=== PATIENT | male | born 1935 | race Caucasian/White ===

== ENCOUNTER 2016-05-10 19:01 | Inpatient (IN) | payer OTHER, MEDICARE ==
[~2016-05-10] VITALS: Ht 200.7 cm; Wt 67.9 kg
[~2016-05-10 19:01] MED LIST: ASTHMA MED; B/P MED; PRED20 PO; [UNRECOGNIZED DRUG - OTHER]; [UNRECOGNIZED DRUG - REMARK]
[2016-05-10 19:03] VITALS: BP 125/67; PULSE 80; RESP 20; TEMP 98.6
[2016-05-10 19:20] VITALS: BP 122/74; PULSE 78; RESP 14; TEMP 98.1; O2SAT 98
[2016-05-10] MEDS ORDERED: DEXTROSE 50% IN WATER 50 ML VIAL(D50) IV PUSH ONE (19:30)
[2016-05-10] MEDS ORDERED: DEXTROSE 50% IN WATER 50 ML VIAL(D50) ONE (19:31)
--- NOTE | 2016-05-10 19:31 | PD ---
HPI Chief Complaint: General Weakness Time Seen by Provider: 20:05 Travel History International Travel<30 days: No Contact w/Intl Traveler<30days: No Traveled to known affect area: No History of Present Illness HPI 80-year-old male presents to the emergency department by private transportation the care of his son for evaluation of progressively worsening generalized weakness. 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 Patient did not undergo coronary bypass. Patient is on multiple medications but the son does not know any of these medications and presently the patient is very drowsy and unable to recall his medication list. Patient has had no injury or fall. No reported fever. Due to his ongoing progression of weakness son decided to bring him to the emergency department. Patient has been ambulatory with assistance of a cane and a health care provider as he is undergoing home health rehabilitation since being discharged from rehabilitation facility 3 weeks ago. Son does not notice any new facial droop or weakness does not notice any specific right-sided or left-sided weakness. Patient has extensive past medical history including diabetes atrial fibrillation hypertension CVA TIA and asthma. FORMERLY [facility], 1928–1983 Past Medical History Narrative Medical Asthma, atrial fibrillation, CVA, diabetes, hypertension, thoracic aneurysm repair, valve replacement, pipe tobacco use; nursing notes reviewed Hx Anticoagulant Therapy: Yes (asa 81mg) Asthma: Yes Atrial Fibrillation: Yes Cardiovascular Problems: Yes Cerebrovascular Accident: Yes Diabetes: Yes Diminished Hearing: No Hypertension: Yes Respiratory: Yes (asthma) Social History Alcohol Use: No Tobacco Use: Yes (PIPE 5 TIMES A DAY) Allergies-Medications (Allergen,Severity, Reaction): Coded Allergies: No Known Allergies (Unverified , 05/18/15) Reported Meds & Prescriptions Reported Meds & Active Scripts Active Reported Augustina Aspirin EC Low Dose (Aspirin) 81 Mg Tabdr Spiriva Respimat Inh (Tiotropium Inh) 1.25 Mcg/Act Aero 2 Puff INH DAILY 1.25 mcg = 1 inhalation Ventavis Inh (Iloprost Inh) 10 Mcg/Ml Soln Metformin (Metformin HCl) 1,000 Mg Tab 1,000 Mg PO BIDPC With meals Norvasc (Amlodipine Besylate) 5 Mg Tab 5 Mg PO DAILY Atorvastatin (Atorvastatin Calcium) 40 Mg Tab 40 Mg PO HS Januvia (Sitagliptin Phosphate) 100 Mg Tab 100 Mg PO DAILY Glimepiride 4 Mg Tab 4 Mg PO BIDAC Metoprolol Tartrate 25 Mg Tab 25 Mg PO BID Trazodone (Trazodone HCl) 50 Mg Tab 50 Mg PO HS Toviaz ER (Fesoterodine Fumarate) 4 mg Aaron 4 Mg PO DAILY Benazepril (Benazepril HCl) 40 Mg Tab 40 Mg PO DAILY Invokana (Canagliflozin) 100 Mg Tab 100 Mg PO DAILY Take before 1st meal of day. [Asthma Med] [Glucose Med] [Afib Med] [B/P Med] Review of Systems ROS Limitations: Clinical Condition, Poor Historian, Other: (son at bedside relatively poor historian) Except as stated in HPI: all other systems reviewed are Neg General / Constitutional: No: Fever (per son) HENT: No: Congestion (according to son) Cardiovascular: No: Chest Pain or Discomfort Respiratory: No: Shortness of Breath (her son per son) Gastrointestinal: No: Abdominal Pain (her son) Musculoskeletal: No: Pain (unknown) Neurologic: Positive: Weakness, Change in Mentation (according to son), Slurred Speech (according to son) Physical Exam Narrative GENERAL: Well-developed somnolent male able to say his name and date of and follow commands. SKIN: Warm and dry. HEAD: Atraumatic. Normocephalic. EYES: Pupils equal and round. No scleral icterus. No injection or drainage. ENT: No nasal bleeding or discharge. Mucous membranes pink and moist. NECK: Trachea midline. No JVD. CARDIOVASCULAR: Regular rate and rhythm. Chest wall: Midline healing postoperative site with no redness no induration no tenderness no drainage RESPIRATORY: No accessory muscle use. Clear to auscultation. Breath sounds equal bilaterally. GASTROINTESTINAL: Abdomen soft, non-tender, nondistended. Hepatic and splenic margins not palpable. MUSCULOSKELETAL: Extremities without clubbing, cyanosis, or edema. No obvious deformities. NEUROLOGICAL: Drowsiness. No obvious cranial nerve deficits. Motor grossly within normal limits. Five out of 5 muscle strength in the arms and legs. No pronator drift. Normal speech. PSYCHIATRIC: Appropriate mood and affect; insight and judgment normal. Data Data Last Documented VS Vital Signs Date Time Temp Pulse Resp B/P Pulse Ox O2 Delivery O2 Flow Rate FiO2 05/11/16 02:02 69 16 117/71 97 Room Air 05/10/16 19:20 98.1 Orders Electrocardiogram (05/10/16 19:28) Complete Blood Count With Diff (05/10/16 19:28) Comprehensive Metabolic Panel (05/10/16 19:) Creatine Kinase (Cpk) (05/10/16 19:28) Prothrombin Time / Inr (Pt) (05/10/16 19:28) Act Partial Throm Time (Ptt) (05/10/16 19:28) Troponin I (05/10/16 19:28) Lactic Acid Sepsis Protocol (05/10/16 19:28) Blood Glucose (05/10/16 19:28) Ecg Monitoring (05/10/16 19:28) Iv Access Insert/Monitor (05/10/16:) Oximetry (05/10/16:) Dextrose 50% In Oc (Vial) Inj (D50w (Vi (05/10/16 19:30) Sodium Chlor 0.9% 1000 Ml Inj (Ns 1000 M (05/10/16 19:28) Dextrose 50% In Oc (Vial) Inj (D50w (Vi (05/10/16 19:31) Ct Brain W/O Iv Contrast(Rout) (05/10/16 ) Chest, Single Ap (05/10/16 ) Dextrose 50% In Oc (Vial) Inj (D50w (Vi (05/10/16 23:00) Dext 5%-Nacl 0.9% 1000 Ml Inj (D5w-Ns 10 (05/11/16 00:00) Blood Glucose (05/10/16 23:53) Dextrose 10% Inj (D... W/Sodium Chloride (05/11/16 00:30) Dextrose 50% In Oc (Vial) Inj (D50w (Vi (05/11/16 00:30) Admit To Inpatient (05/11/16 ) Vital Signs (Adult) Q4H (05/11/16 01:36) Neuro Checks Q4H (05/11/16 01:36) Activity Oob With Assistance (05/11/16 01:36) Hat Brim Curler / Telemetry .CONTINUOUS (05/11/16 01:36) Diet 1800 Ada Cons Carb (05/11/16 Breakfast) Sodium Chloride 0.9% Flush (Ns Flush) (05/11/16 01:45) Sodium Chloride 0.9% Flush (Ns Flush) (05/11/16 09:00) Basic Metabolic Panel (Bmp) (05/12/16 06:00) Complete Blood Count With Diff (05/12/16 06:00) Pt Request For Service (05/11/16 01:36) Case Management Consult (05/11/16 01:36) Scd Bilateral/Knee High EN.BID (05/11/16 01:36) Naloxone Inj (Narcan Inj) (05/11/16 01:45) Inpatient Certification (05/11/16 ) Mri Brain W&W/O Contrast (05/11/16 01:41) Us Leg Venous Doppler Bilat (05/11/16 ) Admit Order (Ed Use Only) (05/11/16 ) ^ Saline Lock (05/11/16 01:58) Resp Oxygen Nicolás C Titrat 1-4 L (05/11/16 ) ^ Notify Dr: Other (05/11/16 01:58) Sodium Chloride 0.9% Flush (Ns Flush) (05/11/16 09:00) Sodium Chloride 0.9% Flush (Ns Flush) (05/11/16 02:00) Consult Neurosurgery (05/11/16 ) Labs Laboratory Tests Test 05/10/16 19:20 White Blood Count 9.9 TH/MM3 Red Blood Count 4.62 MIL/MM3 Hemoglobin 10.8 GM/DL Hematocrit 33.6 % Mean Corpuscular Volume 72.9 FL Mean Corpuscular Hemoglobin 23.5 PG Mean Corpuscular Hemoglobin 32.2 % Concent Red Cell Distribution Width 15.6 % Platelet Count 273 TH/MM3 Mean Platelet Volume 7.8 FL Neutrophils (%) (Auto) 75.0 % Lymphocytes (%) (Auto) 15.0 % Monocytes (%) (Auto) 7.7 % Eosinophils (%) (Auto) 2.1 % Basophils (%) (Auto) 0.2 % Neutrophils # (Auto) 7.4 TH/MM3 Lymphocytes # (Auto) 1.5 TH/MM3 Monocytes # (Auto) 0.8 TH/MM3 Eosinophils # (Auto) 0.2 TH/MM3 Basophils # (Auto) 0.0 TH/MM3 CBC Comment AUTO DIFF Differential Comment AUTO DIFF CONFIRMED Ovalocytes 1+ Keratocytes 1+ Prothrombin Time 11.9 SEC Prothromb Time International 1.1 RATIO Ratio Activated Partial 30.1 SEC Thromboplast Time Sodium Level 141 MEQ/L Potassium Level 3.6 MEQ/L Chloride Level 103 MEQ/L Carbon Dioxide Level 28.5 MEQ/L Anion Gap 10 MEQ/L Blood Urea Nitrogen 15 MG/DL Creatinine 0.98 MG/DL Estimat Glomerular Filtration 73 ML/MIN Rate Random Glucose 27 MG/DL Lactic Acid Level 1.2 mmol/L Calcium Level 8.1 MG/DL Total Bilirubin 0.3 MG/DL Aspartate Amino Transf 21 U/L (AST/SGOT) Alanine Aminotransferase 23 U/L (ALT/SGPT) Alkaline Phosphatase 88 U/L Total Creatine Kinase 46 U/L Troponin I 0.04 NG/ML Total Protein 6.8 GM/DL Albumin 2.9 GM/DL MDM Medical Decision Making Medical Screen Exam Complete: Yes Emergency Medical Condition: Yes Interpretation(s) Vital Signs Date Time Temp Pulse Resp B/P Pulse Ox O2 Delivery O2 Flow Rate FiO2 05/10/16 21:16 82 16 114/72 98 Room Air 05/10/16 19:50 78 16 117/61 98 Room Air 05/10/16 19:20 98.1 78 14 122/74 98 Room Air 05/10/16 19:03 98.6 80 20 125/[address] 05/10/16 0000 Signed Impressions: Service Date/Time: Tuesday, May 10, 2016 21:46 - CONCLUSION: 1. Cerebral edema in the right frontal lobe with a vasogenic pattern and of concern for an underlying intra-axial mass. If there are no contraindications, MRI of the brain with and without contrast is recommended. There is about 4 mm of leftward midline shift. 2. No bleed. 3. Mild sinus disease. Pancho Norton MD CBC & BMP Diagram 05/10/16 19:20 Differential Diagnosis Altered mental status, hypoglycemia, CVA, sepsis, arrhythmia, MT Narrative Course @ 17:29 BG 31; D50 administered; patient with immediate improvement of LOC smiling talking appropriately interactive consistent with resolution of acute hypoglycemic episode; patient given healthy choice meal patient reqires additional amp of D50 as BG 65 and mild decrease LOC @ 22:30 Son has returned --will attempt to help fill out MR information and still w/o patient's medication list but now remembers Invokana is one of his medications. GENERAL: Well-developed well-nourished male in no acute distress no respiratory distress answers questions appropriately GCS 15 SKIN: Warm and dry. HEAD: Atraumatic. Normocephalic. EYES: Pupils equal and round. No scleral icterus. No injection or drainage. ENT: No nasal bleeding or discharge. Mucous membranes pink and moist. NECK: Trachea midline. No JVD. CARDIOVASCULAR: Regular rate and rhythm. RESPIRATORY: No accessory muscle use. Clear to auscultation. Breath sounds equal bilaterally. GASTROINTESTINAL: Abdomen soft, non-tender, nondistended. Hepatic and splenic margins not palpable. MUSCULOSKELETAL: Extremities without clubbing, cyanosis, or edema. No obvious deformities. NEUROLOGICAL: Awake and alert. No obvious cranial nerve deficits. Motor grossly within normal limits. Five out of 5 muscle strength in the arms and legs. No limb ataxia. No pronator drift. Normal speech. PSYCHIATRIC: Appropriate mood and affect; insight and judgment normal. @11:17 PM records from [facility] is available records from 04/13/16: Diabetes, asthma with COPD, dyslipidemia, CVA, factor V deficiency, peptic ulcer disease, hypertension, anemia, respiratory insufficiency, bronchoscopy bronchoalveolar lavage pleural effusion with your centesis aortic valve replacement atrial fibrillation medications at discharge aspirin atorvastatin Pepcid insulin metoprolol oral potassium Spiriva albuterol nebs @ 01:43 --MR not yet done; tech called and MR sheet faxed at 22:50 still waiting on bed; US performed --no dvt bed placement pending; MR here LOC aslepp, awakens to voice GCS 14-15; BG 97 returned from MR GCS 15, BG 73; D10 infusing Son: Fransico Oneill [phone] Critical Care Narrative Aggregate critical care time was 60 minutes. Time to perform other separately billable procedures was not included in the critical care time. My time did not include minutes spent treating any other patients simultaneously or on activities that did not directly contribute to the patient's treatment. The services I provided to this patient were to treat and/or prevent clinically significant deterioration that could result in: Respiratory failure, aspiration , coma, I provided critical care services requiring my management, as noted below: Chart data review, documentation time, medication orders and management, vital sign assessments/reviewing monitor data, ordering and reviewing lab tests, ordering and interpreting/reviewing x-rays and diagnostic studies, care of the patient and discussion of the patient with the admitting physicians. Physician Communication Physician Communication call placed to discussed with Dr Acuna --admit to [facility]; discused with livestock agent Dr Lisa --will acept to [facility] ICU consult to Dr Acuna Diagnosis Primary Impression: Altered mental status Qualified Code: R40.0 - Somnolence Additional Impressions: Intracranial mass Hypoglycemia Hypoglycemia due to type 2 diabetes mellitus Admitting Information Admitting Physician Requests: Admit Muriel Ring MD May 10, 2016 19:31
[2016-05-10] MEDS: SODIUM CHLOR 0.9% 1000 ML INJ 1,000 ML IV SCH ×2 (19:48→21:42)
[2016-05-10 19:50] VITALS: BP 117/61; PULSE 78; RESP 16; O2SAT 98
[2016-05-10 19:55] LABS: AUTOMATED NEUTROPHIL # 7.4 TH/MM3 (1.8-7.7); BASOPHIL % 0.2 % (0.0-2.0); EOSINOPHIL # 0.2 TH/MM3 (0-0.4); EOSINOPHIL % 2.1 % (0.0-4.0); HEMATOCRIT 33.6 % (39.0-51.0); LYMPHOCYTE # 1.5 TH/MM3 (1.0-4.8); MEAN CELL VOLUME 72.9 FL (80.0-100.0); MEAN CORPUSCULAR HEMOGLOBIN 23.5 PG (27.0-34.0); MEAN CORPUSCULAR HGB CONC 32.2 % (32.0-36.0); MONO % 7.7 % (0.0-8.0); PLATELET COUNT 273 TH/MM3 (150-450); RED BLOOD COUNT 4.62 MIL/MM3 (4.50-5.90); RED CELL DISTRIBUTION WIDTH 15.6 % (11.6-17.2); WHITE BLOOD COUNT 9.9 TH/MM3 (4.0-11.0)
[2016-05-10 20:01] LABS: CHLORIDE 103 MEQ/L (98-107); POTASSIUM 3.6 MEQ/L (3.5-5.1); SODIUM (NA) 141 MEQ/L (136-145)
[2016-05-10 20:05] LABS: ANION GAP 10 MEQ/L (5-15); BICARBONATE 28.5 MEQ/L (21.0-32.0)
[2016-05-10 20:07] LABS: APTT (PATIENT) 30.1 SEC (24.3-30.1); INTERNATIONAL NORMALIZED RATIO 1.1 RATIO; PROTHROMBIN TIME - PATIENT 11.9 SEC (9.8-11.6)
[2016-05-10 20:12] LABS: HEMO FLAGS AUTO DIFF
[2016-05-10 20:31] LABS: ALKALINE PHOSPHATASE 88 U/L (45-117); ALT (GPT) 23 U/L (12-78); AST (GOT) 21 U/L (15-37); BLOOD UREA NITROGEN 15 MG/DL (7-18); GLOMERULAR FILTRATION RATE 73 ML/MIN (>89); TOTAL BILIRUBIN ADULT 0.3 MG/DL (0.2-1.0)
[2016-05-10 20:32] LABS: CREATINE KINASE 46 U/L (39-308)
[2016-05-10 21:00] LABS: KERATOCYTES 1+ (NORMAL); OVALOCYTES 1+ (NORMAL); SCAN/DIFF AUTO DIFF CONFIRMED
[2016-05-10 21:16] VITALS: BP 114/72; PULSE 82; RESP 16; O2SAT 98
--- NOTE | 2016-05-10 22:10 | RADHPO ---
EXAM DATE/TIME: 05/10/2016 21:46 [facility] COMPARISON: No previous studies available for comparison. INDICATIONS : Altered mental status and weakness post cardiac surgery one month ago. RADIATION DOSE: 62.89 CTDIvol (mGy) MEDICAL HISTORY : Diabetes mellitus type 2. Aneurysm, abdominal. Cerebrovascular disease.Hypertension. SURGICAL HISTORY : Thoracic aneurysm and valve replacement. ENCOUNTER: Initial ACUITY: 1 month PAIN SCALE: 0/10 LOCATION: cranial TECHNIQUE: Multiple contiguous axial images were obtained of the head. Using automated exposure control and adj ustment of the mA and/or kV according to patient size, radiation dose was kept as low as reasonably a chievable to obtain optimal diagnostic quality images. FINDINGS: Focal edema with a vasogenic pattern seen in the right frontal lobe. There is about 4 mm of localized leftward midline shift. No bleed. No evidence of an acute ischemic event. Skull is intact. There is mucoperiosteal thickening of the maxillary air cells. CONCLUSION: 1. Cerebral edema in the right frontal lobe with a vasogenic pattern and of concern for an underlying intra-axial mass. If there are no contraindications, MRI of the brain with and without contrast is r ecommended. There is about 4 mm of leftward midline shift. 2. No bleed. 3. Mild sinus disease. Pancho Norton MD on May 10, 2016 at 22:07 Board Certified Radiologist. This report was verified electronically.
[2016-05-10] MEDS ORDERED: DEXTROSE 50% IN WATER 50 ML SYRINGE IV ONE (22:30)
[2016-05-10 22:49] VITALS: BP 119/78; PULSE 69; RESP 16; O2SAT 99
[2016-05-10] MEDS ORDERED: DEXTROSE 50% IN WATER 50 ML VIAL(D50) IV ONE (23:00)
--- NOTE | 2016-05-10 23:00 | RADHPO ---
EXAM DATE/TIME: 05/10/2016 22:48 [facility] COMPARISON: CHEST SINGLE AP, May 18, 2015, 11:15. INDICATIONS : Weakness and confusion. MEDICAL HISTORY : Diabetes mellitus type 2. Aneurysm, abdominal. Cerebrovascular disease.Hypertension. SURGICAL HISTORY : Thoracic aneurysm and valve replacement. ENCOUNTER: Initial ACUITY: 1 day PAIN SCORE: 0/10 LOCATION: Bilateral chest FINDINGS: Patient has had median sternotomy and valve replacement since the prior study. Heart is mildly enlarg ed, new. There are basilar predominant infiltrates and small effusions on both sides. No pneumothorax seen. CONCLUSION: Mild to moderate failure. Valve replacement since the prior study. Pancho Norton MD on May 10, 2016 at 22:58 Board Certified Radiologist. This report was verified electronically.
[2016-05-10] MEDS ORDERED: ATOR40TA16 PO (23:25)
[2016-05-10] MEDS ORDERED: METO25TA3 PO (23:25)
[2016-05-10] MEDS ORDERED: BENA40TA PO (23:25)
[2016-05-10] MEDS ORDERED: TOVI4TAB PO (23:25)
[2016-05-10] MEDS ORDERED: AMLO5 PO (23:25)
[2016-05-10] MEDS ORDERED: METF1000 PO (23:25)
[2016-05-10] MEDS ORDERED: GLIM4TAB PO (23:25)
[2016-05-10] MEDS ORDERED: CANA100T PO (23:25)
[2016-05-10] MEDS ORDERED: ASPI1TAB73 (23:25)
[2016-05-10] MEDS ORDERED: TIOT1AER2 INH (23:25)
[2016-05-10] MEDS ORDERED: [UNRECOGNIZED DRUG - CODE] (23:25)
[2016-05-10] MEDS ORDERED: SITA1TAB2 PO (23:25)
[2016-05-10] MEDS ORDERED: TRAZ50TA12 PO (23:25)
[2016-05-11] VITALS (17 sets, daily range): BP systolic 116–190; BP diastolic 60–86; PULSE 69–90; RESP 16–31; TEMP 98–98.4; O2SAT 95–98
[2016-05-11] MEDS ORDERED: DEXT 5%-NACL 0.9% 1000 ML INJ 1,000 ML IV SCH
[2016-05-11] MEDS: SODIUM CHLOR 0.9% 1000 ML INJ 1,000 ML IV SCH ×2 (00:11→01:33)
[2016-05-11] MEDS ORDERED: DEXTROSE 50% IN WATER 50 ML VIAL(D50) IV ONE ×2 (00:30→04:00)
[2016-05-11] MEDS ORDERED: DEXTROSE 50% IN WATER 50 ML SYRINGE IV ONE ×2 (00:30→03:45)
[2016-05-11] MEDS: SODIUM CHLORIDE 23.4% INJ 154 MEQ in DEXTROSE 10% INJ 1,000 ML IV SCH ×2 (00:41→14:45)
[2016-05-11] MEDS ORDERED: NALOXONE HCL 0.4 MG/ML AMP IV PRN (01:45)
[2016-05-11] MEDS ORDERED: SODIUM CHLORIDE 0.9% FLUSH 5 ML FLUSH FLUSH PRN (01:45)
[2016-05-11] MEDS ORDERED: SODIUM CHLORIDE 0.9% FLUSH 5 ML FLUSH IVF PRN (02:00)
--- NOTE | 2016-05-11 02:55 | RADHPO ---
EXAM DATE/TIME: 05/11/2016 02:14 [facility] COMPARISON: No previous studies available for comparison. INDICATIONS : Swelling in bilateral legs. MEDICAL HISTORY : Aneurysm, abdominal. Hypertension. Cerebrovascular accident. Asthma. A-Fib. Factor V deficiency. SURGICAL HISTORY : Abdominal aortic aneurysm repair. Aortic valve replacement. ENCOUNTER: Initial ACUITY: 1 day PAIN SCORE: 0/10 LOCATION: Bilateral legs. TECHNIQUE: Venous ultrasound of the left and right leg was performed from the inguinal ligament to the proximal calf. Real-time, color Doppler and spectral tracing, compression and augmentation techniques were us ed. FINDINGS: RIGHT LEG: There is normal compressibility of the deep venous system from the inguinal region to the proximal ca lf. No echogenic clot is seen in the lumen of the common femoral, femoral, popliteal, and posterior tibial veins. There is a normal response of the venous system to proximal and distal augmentation an d respiration. There is an elongated complex 15.3 x 3.4 x 1.1 cm cystic area seen in the superficial right medi al mid thigh LEFT LEG: There is normal compressibility of the deep venous system from the inguinal region to the proximal ca lf. No echogenic clot is seen in the lumen of the common femoral, femoral, popliteal, and posterior tibial veins. There is a normal response of the venous system to proximal and distal augmentation an d respiration. CONCLUSION: 1. No DVT. 2. Complex elongated cystic structure in the superficial medial right mid thigh. No flow is seen with in this. This could be a seroma if the patient has had prior surgery in this region. Pancho Lugo MD on May 11, 2016 at 2:50 Board Certified Radiologist. This report was verified electronically.
[2016-05-11] MEDS ORDERED: GADODIAMIDE PF 287 MG/ML 5 ML VIAL (for RAD MRI) IV PUSH ONE (03:29)
--- NOTE | 2016-05-11 04:20 | RADHPO ---
EXAM DATE/TIME: 05/11/2016 03:27 [facility] COMPARISON: CT BRAIN W/O CONTRAST, May 10, 2016, 21:46. INDICATIONS : Mass. CONTRAST: 14 cc Omniscan (gadodiamide) IV MEDICAL HISTORY : Diabetes mellitus type 2. SURGICAL HISTORY : Aortic valve replacment, Thoracic aneurysm repair. ENCOUNTER: Initial ACUITY: 1 day PAIN SCORE: 1/10 LOCATION: Bilateral cranial TECHNIQUE: Multiplanar, multisequence MRI of the brain was performed both prior to and following the administrat ion of paramagnetic contrast. FINDINGS: CEREBRUM: There are areas of increased signal seen in the cerebral white matter being more prominent on the rig ht. On the right, there appears to be a more prior area extending to the right basal ganglia. Within this area of increased signal on the T2 images there is a more focal 1.3 cm masslike area seen. This demonstrates minimal enhancement. There is some peripheral low signal seen in this region. Old infarctions in the basal ganglia bilaterally and in the left caudate head. The ventricles ar e normal in size. There is mild 3 mm of right to left midline shift. The basal cisterns are open. The re is increased signal within the periventricular regions bilaterally on the diffusion weighted image s likely related to T2 shine through phenomenon.No extraaxial fluid collections are seen. The pituit astrid gland and suprasellar cistern are normal in configuration. WHITE MATTER: No significant signal abnormalities are seen in the white matter. POSTERIOR FOSSA: The cerebellum and brainstem are intact. The 4th ventricle is midline. The cerebellopontine angle is unremarkable. The cerebellar tonsils are normal in position. EXTRACRANIAL: The visualized portions of the orbits and paranasal sinuses are unremarkable. POST-CONTRAST: No abnormal areas of parenchymal or dural enhancement. No evidence of blood-brain barrier breakdown. CONCLUSION: 1. 1.3 cm area of focal signal abnormality in the right periventricular white matter with some surrou nding edema. This area is nonspecific. There is some suggestion this may be related to a focal area o f prior hemorrhage. An area of prior infarction with some minimal enhancement could have a similar ap pearance. A small mass such as a glioma with mild mass effect could also have this appearance. Given the surrounding edema only causes mild midline shift and enhancement is very slight, as above, it is thought that provided there is no clinical contraindication, a very short term interval followup MRI examination in 4 weeks could be recommended. Neurosurgical consultation for followup would also be re commended. 2. Suspected areas of ischemic demyelination in the cerebral white matter with some T2 shine through phenomenon seen on the diffusion weighted images. Pancho Lugo MD on May 11, 2016 at 4:01 Board Certified Radiologist. This report was verified electronically.
--- NOTE | 2016-05-11 06:53 | HHI.HP ---
HPI Service Critical Care Medicine Primary Care Physician No Primary Care Physician Admission Diagnosis AMS; R intracranial mass; DM w hypoglycemia Diagnosis: Travel History International Travel<30 Days: No Contact w/Intl Traveler <30 Da: No Traveled to Known Affected Are: No History of Present Illness 80-year-old male presents to the emergency department by private transportation by his son for evaluation of progressively worsening generalized weakness. 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 Patient understands he is in the hospital however he doesn't remember why he came here at the first place. He does not have any complaints at this time. He has had no injury or fall. No reported fever. Due to his ongoing progression of weakness son decided to bring him to the emergency department. Patient has been ambulatory with assistance of a cane and a health care provider as he is undergoing home health rehabilitation since being discharged from rehabilitation facility 3 weeks ago. Review of Systems Constitutional: DENIES: Diaphoretic episodes, Fatigue, Fever, Weight gain, Weight loss, Chills, Dizziness, Change in appetite, Night Sweats Endocrine: DENIES: Heat/cold intolerance, Polydipsia, Polyuria, Polyphagia Ears, nose, mouth, throat: DENIES: Tinnitus, Hearing loss, Vertigo, Nasal discharge, Oral lesions, Throat pain, Hoarseness, Ear Pain, Running Nose, Epistaxis, Sinus Pain, Toothache, Odynophagia Respiratory: DENIES: Apneas, Cough, Snoring, Wheezing, Hemoptysis, Sputum production, Shortness of breath Cardiovascular: DENIES: Chest pain, Palpitations, Syncope, Dyspnea on Exertion , PND, Lower Extremity Edema, Orthopnea, Claudication Gastrointestinal: DENIES: Abdominal pain, Black stools, Bloody stools, Constipation, Diarrhea, Nausea, Vomiting, Difficulty Swallowing, Anorexia Genitourinary: DENIES: Sexual dysfunction, Urinary frequency, Urinary incontinence, Urgency, Hematuria, Dysuria, Nocturia, Penile Discharge, Testicular Pain, Testicular Swelling Musculoskeletal: DENIES: Joint pain, Muscle aches, Stiffness, Joint Swelling, Back pain, Neck pain Integumentary: DENIES: Abnormal pigmentation, Nail changes, Pruritus, Rash Hematologic/lymphatic: DENIES: Bruising, Lymphadenopathy Immunologic/allergic: DENIES: Eczema, Urticaria Past Family Social History Allergies: Coded Allergies: No Known Allergies (Unverified , 05/18/15) Past Medical History Hypertension Atrial fibrillation Diabetes Past Surgical History Thoracic aneurysm repair Valve replacement Reported Medications Reported Meds & Active Scripts Active Reported Spiriva Respimat Inh (Tiotropium Inh) 1.25 Mcg/Act Aero 2 Puff INH DAILY 1.25 mcg = 1 inhalation Ventavis Inh (Iloprost Inh) 10 Mcg/Ml Soln Metformin (Metformin HCl) 1,000 Mg Tab 1,000 Mg PO BIDPC With meals Norvasc (Amlodipine Besylate) 5 Mg Tab 5 Mg PO DAILY Atorvastatin (Atorvastatin Calcium) 40 Mg Tab 40 Mg PO HS Januvia (Sitagliptin Phosphate) 100 Mg Tab 100 Mg PO DAILY Glimepiride 4 Mg Tab 4 Mg PO BIDAC Metoprolol Tartrate 25 Mg Tab 25 Mg PO BID Trazodone (Trazodone HCl) 50 Mg Tab 50 Mg PO HS Toviaz ER (Fesoterodine Fumarate) 4 mg Aaron 4 Mg PO DAILY Benazepril (Benazepril HCl) 40 Mg Tab 40 Mg PO DAILY Invokana (Canagliflozin) 100 Mg Tab 100 Mg PO DAILY Take before 1st meal of day. [Asthma Med] [Glucose Med] [Afib Med] [B/P Med] Active Ordered Medications Current Medications Medications (Trade) Dose Ordered Sig/Tawnya Route PRN Reason Start Time Stop Time Status Last Admin Dose Admin Sodium Chloride/ Dextrose (Sodium Chloride 23.4% Inj/D10w Inj) 1,038.5 ml @ 10 mls/hr Q24H IV 05/11/16 00:30 05/11/16 14:45 IV Flush (NS Flush) 2 ml UNSCH PRN FLUSH FLUSH AFTER USING IV ACCESS 05/11/16 01:45 IV Flush (NS Flush) 2 ml BID FLUSH 05/11/16 09:00 05/11/16 10:33 Naloxone HCl (Narcan Inj) 0.4 mg UNSCH PRN IV SEE LABEL COMMENTS 05/11/16 01:45 Amlodipine Besylate (Norvasc) 5 mg DAILY PO 05/12/16 09:00 Atorvastatin Calcium (Lipitor) 40 mg HS PO 05/11/16 21:00 Lisinopril (Prinivil) 40 mg DAILY PO 05/12/16 09:00 Metoprolol Tartrate (Lopressor) 25 mg BID PO 05/11/16 21:00 Trazodone HCl (Desyrel) 50 mg HS PO 05/11/16 21:00 Tolterodine Tartrate (Detrol La) 4 mg DAILY PO 05/12/16 09:00 Patient Own Medication PT OWN MED: TIOTRIP... DAILY INH 05/12/16 09:00 Future Hold Haloperidol Lactate (Haldol Inj) 5 mg Q4H PRN IV AGITATION 05/11/16 17:00 05/11/16 16:16 Labetalol HCl (Trandate Inj) 20 mg Q4H PRN IV PUSH SBP greater than 160mm Hg 05/11/16 16:30 Family History Noncontributory Social History Negative 3 Physical Exam Vital Signs Vital Signs Date Time Temp Pulse Resp B/P Pulse Ox O2 Delivery O2 Flow Rate FiO2 05/11/16 03:50 98.0 74 16 169/81 Room Air 05/11/16 03:00 72 16 148/71 97 Room Air 05/11/16 02:02 69 16 117/71 97 Room Air 05/11/16 01:01 75 16 116/71 97 Room Air 05/11/16 00:14 72 16 133/76 95 Room Air 05/10/16 22:49 69 16 119/78 99 Room Air 05/10/16 21:16 82 16 114/72 98 Room Air 05/10/16 19:50 78 16 117/61 98 Room Air 05/10/16 19:20 98.1 78 14 122/74 98 Room Air 05/10/16 19:03 98.6 80 20 125/67 Physical Exam GENERAL: Well-nourished, well-developed patient. SKIN: Warm and dry. HEAD: Normocephalic. EYES: No scleral icterus. No injection or drainage. NECK: Supple, trachea midline. No JVD or lymphadenopathy. CARDIOVASCULAR: Regular rate and rhythm without murmurs, gallops, or rubs. RESPIRATORY: Breath sounds equal bilaterally. No accessory muscle use. GASTROINTESTINAL: Abdomen soft, non-tender, nondistended. MUSCULOSKELETAL: No cyanosis, or edema. BACK: Nontender without obvious deformity. No CVA tenderness. EXTREMITIES: No focal weakness appreciated Laboratory Laboratory Tests Test 05/10/16 19:20 White Blood Count 9.9 Red Blood Count 4.62 Hemoglobin 10.8 Hematocrit 33.6 Mean Corpuscular Volume 72.9 Mean Corpuscular Hemoglobin 23.5 Mean Corpuscular Hemoglobin 32.2 Concent Red Cell Distribution Width 15.6 Platelet Count 273 Mean Platelet Volume 7.8 Neutrophils (%) (Auto) 75.0 Lymphocytes (%) (Auto) 15.0 Monocytes (%) (Auto) 7.7 Eosinophils (%) (Auto) 2.1 Basophils (%) (Auto) 0.2 Neutrophils # (Auto) 7.4 Lymphocytes # (Auto) 1.5 Monocytes # (Auto) 0.8 Eosinophils # (Auto) 0.2 Basophils # (Auto) 0.0 CBC Comment AUTO DIFF Differential Comment AUTO DIFF CONFIRMED Ovalocytes 1+ Keratocytes 1+ Prothrombin Time 11.9 Prothromb Time International 1.1 Ratio Activated Partial 30.1 Thromboplast Time Sodium Level 141 Potassium Level 3.6 Chloride Level 103 Carbon Dioxide Level 28.5 Anion Gap 10 Blood Urea Nitrogen 15 Creatinine 0.98 Estimat Glomerular Filtration 73 Rate Random Glucose 27 Lactic Acid Level 1.2 Calcium Level 8.1 Total Bilirubin 0.3 Aspartate Amino Transf 21 (AST/SGOT) Alanine Aminotransferase 23 (ALT/SGPT) Alkaline Phosphatase 88 Total Creatine Kinase 46 Troponin I 0.04 Total Protein 6.8 Albumin 2.9 Result Diagram: 05/10/16191905/10/16 1920 Imaging Last 24 hours Impressions Brain MRI 05/11/16 0141 Signed Impressions: Service Date/Time: Wednesday, May 11, 2016 03:27 - CONCLUSION: 1. 1.3 cm area of focal signal abnormality in the right periventricular white matter with some surrounding edema. This area is nonspecific. There is some suggestion this may be related to a focal area of prior hemorrhage. An area of prior infarction with some minimal enhancement could have a similar appearance. A small mass such as a glioma with mild mass effect could also have this appearance. Given the surrounding edema only causes mild midline shift and enhancement is very slight , as above, it is thought that provided there is no clinical contraindication, a very short term interval followup MRI examination in 4 weeks could be recommended. Neurosurgical consultation for followup would also be recommended. 2. Suspected areas of ischemic demyelination in the cerebral white matter with some T2 shine through phenomenon seen on the diffusion weighted images. Pancho Lugo MD Spectroscopy MRI 05/11/16 0000 Signed Impressions: Service Date/Time: Wednesday, May 11, 2016 11:42 - CONCLUSION: Equivocal spectroscopy as described above. MRI surveillance is suggested without and with contrast. Kenneth Mcleod MD Lower Extremity Ultrasound 05/11/16 0000 Signed Impressions: Service Date/Time: Wednesday, May 11, 2016 02:14 - CONCLUSION: 1. No DVT. 2. Complex elongated cystic structure in the superficial medial right mid thigh. No flow is seen within this. This could be a seroma if the patient has had prior surgery in this region. Pancho Lugo MD Carotid Artery Ultrasound 05/11/16 0000 Signed Impressions: Service Date/Time: Wednesday, May 11, 2016 16:26 - CONCLUSION: 1. Atherosclerotic plaque bilaterally more abundant on the left. A 50-69%% stenosis is seen involving the left ICA origin. Right ICA is without stenosis. 2. Antegrade flow involving both vertebral arteries. hTeron Mccracken Jr., MD Assessment and Plan Problem List: (1) Altered mental status ICD Code: R41.82 Status: Acute (2) Intracranial mass ICD Code: R90.0 Status: Acute (3) Hypoglycemia due to type 2 diabetes mellitus ICD Code: E11.649 Status: Acute Assessment and Plan Altered mental status - Due to brain mass/bleed - Management per neurosurgery Hypertension - Norvasc - Lisinopril Atrial fibrillation - Rate control - Metoprolol ability to rate control - no anticoagulation due to brain mass and bleed Factor V deficiency - Hematology consult Hypoglycemia - Hold all diabetes medications - D10 W for now - Frequent sugar level checks DVT GI prophylaxis - Teds and SCDs Pepcid - No pharmacological DVT prophylaxis D2 intracranial bleed Critical Care: The total critical care time was 35 minutes. Time to perform other separately billable procedures was not included in the critical care time. Problem Qualifiers (1) Altered mental status: Qualified Code: R40.0 - Somnolence Alexsander Lisa MD May 11, 2016 06:53
--- NOTE | 2016-05-11 08:55 | PD.CONS ---
[facility] Service [email or web address] Consult Requested By dr dee Primary Care Physician No Primary Care Physician History of Present Illness This is a 80-year-old male presents to the emergency department by his son for evaluation of progressively worsening generalized weakness. 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 Patient understands he is in the hospital however he doesn't remember why he came here at the first place. Apparently he has been ambulatory with assistance of a cane and a health care provider as he is undergoing home health rehabilitation since being discharged from rehabilitation facility 3 weeks ago. His weakness is generalized. He has intermittent confusion. There is no focal weakness. There is no sensory loss. No seizure activity. No incontinence or stool or urine. A CT of the brain was obtained which show an hypodense lesion with surrounding edema. It was concerning for an intra-cerebral mass. Neurosurgical consultation was requested Review of Systems Constitutional: DENIES: Diaphoretic episodes, Fatigue, Fever, Weight gain, Weight loss, Chills, Dizziness, Change in appetite, Night Sweats Endocrine: DENIES: Heat/cold intolerance, Polydipsia, Polyuria, Polyphagia Ears, nose, mouth, throat: DENIES: Tinnitus, Hearing loss, Vertigo, Nasal discharge, Oral lesions, Throat pain, Hoarseness, Ear Pain, Running Nose, Epistaxis, Sinus Pain, Toothache, Odynophagia Respiratory: DENIES: Apneas, Cough, Snoring, Wheezing, Hemoptysis, Sputum production, Shortness of breath Cardiovascular: DENIES: Chest pain, Palpitations, Syncope, Dyspnea on Exertion , PND, Lower Extremity Edema, Orthopnea, Claudication Gastrointestinal: DENIES: Abdominal pain, Black stools, Bloody stools, Constipation, Diarrhea, Nausea, Vomiting, Difficulty Swallowing, Anorexia Genitourinary: DENIES: Sexual dysfunction, Urinary frequency, Urinary incontinence, Urgency, Hematuria, Dysuria, Nocturia, Penile Discharge, Testicular Pain, Testicular Swelling Musculoskeletal: DENIES: Joint pain, Muscle aches, Stiffness, Joint Swelling, Back pain, Neck pain Integumentary: DENIES: Abnormal pigmentation, Nail changes, Pruritus, Rash Hematologic/lymphatic: DENIES: Bruising, Lymphadenopathy Immunologic/allergic: DENIES: Eczema, Urticaria Past Family Social History Allergies: Coded Allergies: No Known Allergies (Unverified , 05/18/15) Past Medical History Hypertension Atrial fibrillation Diabetes Past Surgical History Thoracic aneurysm repair Valve replacement Reported Medications Reported Medications Spiriva Respimat Inh (Tiotropium Inh) 1.25 Mcg/Act Aero 2 Puff INH DAILY 1.25 mcg = 1 inhalation Ventavis Inh (Iloprost Inh) 10 Mcg/Ml Soln Metformin (Metformin HCl) 1,000 Mg Tab 1,000 Mg PO BIDPC With meals Norvasc (Amlodipine Besylate) 5 Mg Tab 5 Mg PO DAILY Atorvastatin (Atorvastatin Calcium) 40 Mg Tab 40 Mg PO HS Januvia (Sitagliptin Phosphate) 100 Mg Tab 100 Mg PO DAILY Glimepiride 4 Mg Tab 4 Mg PO BIDAC Metoprolol Tartrate 25 Mg Tab 25 Mg PO BID Trazodone (Trazodone HCl) 50 Mg Tab 50 Mg PO HS Toviaz ER (Fesoterodine Fumarate) 4 mg Aaron 4 Mg PO DAILY Benazepril (Benazepril HCl) 40 Mg Tab 40 Mg PO DAILY Invokana (Canagliflozin) 100 Mg Tab 100 Mg PO DAILY Take before 1st meal of day. Active Ordered Medications Current Medications Medications (Trade) Dose Ordered Sig/Tawnya Route PRN Reason Start Time Stop Time Status Last Admin Dose Admin Sodium Chloride/ Dextrose (Sodium Chloride 23.4% Inj/D10w Inj) 1,038.5 ml @ 10 mls/hr Q24H IV 05/11/16 00:30 05/11/16 14:45 IV Flush (NS Flush) 2 ml UNSCH PRN FLUSH FLUSH AFTER USING IV ACCESS 05/11/16 01:45 IV Flush (NS Flush) 2 ml BID FLUSH 05/11/16 09:00 05/11/16 10:33 Naloxone HCl (Narcan Inj) 0.4 mg UNSCH PRN IV SEE LABEL COMMENTS 05/11/16 01:45 Amlodipine Besylate (Norvasc) 5 mg DAILY PO 05/12/16 09:00 Atorvastatin Calcium (Lipitor) 40 mg HS PO 05/11/16 21:00 Lisinopril (Prinivil) 40 mg DAILY PO 05/12/16 09:00 Metoprolol Tartrate (Lopressor) 25 mg BID PO 05/11/16 21:00 Trazodone HCl (Desyrel) 50 mg HS PO 05/11/16 21:00 Tolterodine Tartrate (Detrol La) 4 mg DAILY PO 05/12/16 09:00 Patient Own Medication PT OWN MED: TIOTRIP... DAILY INH 05/12/16 09:00 Future Hold Haloperidol Lactate (Haldol Inj) 5 mg Q4H PRN IV AGITATION 05/11/16 17:00 05/11/16 16:16 Labetalol HCl (Trandate Inj) 20 mg Q4H PRN IV PUSH SBP greater than 160mm Hg 05/11/16 16:30 Family History Noncontributory Social History No alcohol abuse. No tobacco. No illicit drug use Physical Exam Vital Signs Vital Signs Date Time Temp Pulse Resp B/P Pulse Ox O2 Delivery O2 Flow Rate FiO2 05/11/16 08:33 97 21 05/11/16 07:00 99 Room Air 21 05/11/16 06:00 78 05/11/16 05:00 74 05/11/16 05:00 Room Air 95 05/11/16 05:00 98.3 74 25 165/81 95 05/11/16 03:50 98.0 74 16 169/81 Room Air 05/11/16 03:00 72 16 148/71 97 Room Air 05/11/16 02:02 69 16 117/71 97 Room Air 05/11/16 01:01 75 16 116/71 97 Room Air 05/11/16 00:14 72 16 133/76 95 Room Air 05/10/16 22:49 69 16 119/78 99 Room Air 05/10/16 21:16 82 16 114/72 98 Room Air 05/10/16 19:50 78 16 117/61 98 Room Air 05/10/16 19:20 98.1 78 14 122/74 98 Room Air 05/10/16 19:03 98.6 80 20 125/67 Physical Exam The patient is alert, confused, oriented to self. Wants to go home Cranial nerve examination demonstrates the pupils to be equal, round, and reactive to light. Extra-ocular movements are intact with normal convergence. Facial motor function appears normal and symmetrical. Face sensation, hearing, visual land, and olfaction can not be assessed properly due to the patients condition. The patient has an intact corneal reflex and a gag reflex. Sternocleidomastoid and trapezius have normal and symmetrical strength. Other cranial nerves are intact. Neck is soft and supple. Cervical spine has a normal range of motion of the cervical spine without pain. There is no tenderness to palpation to the spinous processes or paraspinal muscles. Muscle testing reveals normal bulk and tone overall without rigidity, spasticity , fasciculations, or atrophy. Muscle strength is 5/5 in all muscle groups of both upper and lower extremities. Deep tendon reflexes are 1+ and symmetrical in the biceps, triceps, and brachioradialis, bilaterally, in the upper extremities. In the lower extremities , the patellar and Achilles are 1+, bilaterally. There is a bilateral plantar flexion response. Hoffmanns sign is negative. There is no clonus or other abnormal reflexes noted. Cerebellar examination is limited due to the patient condition, but no obvious deficits are noted. Laboratory Laboratory Tests Test 05/10/16 19:20 White Blood Count 9.9 Red Blood Count 4.62 Hemoglobin 10.8 Hematocrit 33.6 Mean Corpuscular Volume 72.9 Mean Corpuscular Hemoglobin 23.5 Mean Corpuscular Hemoglobin 32.2 Concent Red Cell Distribution Width 15.6 Platelet Count 273 Mean Platelet Volume 7.8 Neutrophils (%) (Auto) 75.0 Lymphocytes (%) (Auto) 15.0 Monocytes (%) (Auto) 7.7 Eosinophils (%) (Auto) 2.1 Basophils (%) (Auto) 0.2 Neutrophils # (Auto) 7.4 Lymphocytes # (Auto) 1.5 Monocytes # (Auto) 0.8 Eosinophils # (Auto) 0.2 Basophils # (Auto) 0.0 CBC Comment AUTO DIFF Differential Comment AUTO DIFF CONFIRMED Ovalocytes 1+ Keratocytes 1+ Prothrombin Time 11.9 Prothromb Time International 1.1 Ratio Activated Partial 30.1 Thromboplast Time Sodium Level 141 Potassium Level 3.6 Chloride Level 103 Carbon Dioxide Level 28.5 Anion Gap 10 Blood Urea Nitrogen 15 Creatinine 0.98 Estimat Glomerular Filtration 73 Rate Random Glucose 27 Lactic Acid Level 1.2 Calcium Level 8.1 Total Bilirubin 0.3 Aspartate Amino Transf 21 (AST/SGOT) Alanine Aminotransferase 23 (ALT/SGPT) Alkaline Phosphatase 88 Total Creatine Kinase 46 Troponin I 0.04 Total Protein 6.8 Albumin 2.9 Result Diagram: 05/10/16191905/10/16 192 Imaging Imaging Last 24 hours Impressions Brain MRI 05/11/16 0141 Signed Impressions: Service Date/Time: Wednesday, May 11, 2016 03:27 - CONCLUSION: 1. 1.3 cm area of focal signal abnormality in the right periventricular white matter with some surrounding edema. This area is nonspecific. There is some suggestion this may be related to a focal area of prior hemorrhage. An area of prior infarction with some minimal enhancement could have a similar appearance. A small mass such as a glioma with mild mass effect could also have this appearance. Given the surrounding edema only causes mild midline shift and enhancement is very slight , as above, it is thought that provided there is no clinical contraindication, a very short term interval followup MRI examination in 4 weeks could be recommended. Neurosurgical consultation for followup would also be recommended. 2. Suspected areas of ischemic demyelination in the cerebral white matter with some T2 shine through phenomenon seen on the diffusion weighted images. Pancho Lugo MD Spectroscopy MRI 05/11/16 0000 Signed Impressions: Service Date/Time: Wednesday, May 11, 2016 11:42 - CONCLUSION: Equivocal spectroscopy as described above. MRI surveillance is suggested without and with contrast. Kenneth Mcleod MD Lower Extremity Ultrasound 05/11/16 0000 Signed Impressions: Service Date/Time: Wednesday, May 11, 2016 02:14 - CONCLUSION: 1. No DVT. 2. Complex elongated cystic structure in the superficial medial right mid thigh. No flow is seen within this. This could be a seroma if the patient has had prior surgery in this region. Pancho Lugo MD Carotid Artery Ultrasound 05/11/16 0000 Signed Impressions: Service Date/Time: Wednesday, May 11, 2016 16:26 - CONCLUSION: 1. Atherosclerotic plaque bilaterally more abundant on the left. A 50-69%% stenosis is seen involving the left ICA origin. Right ICA is without stenosis. 2. Antegrade flow involving both vertebral arteries. Theron Mccracken Jr., MD Attending Statement Neuro. I have reviewed his clinical and radiological findings. neuro checks in a serial fashion. These lesion could represent an involving cerebral infarction rather than a neoplastic process. I recommend he undergoes an MRI of the brain. In addition I recommend an MR spectroscopy. I would defer further recommendations to upon completion of his workup Respiratory. pulmonary toilette, nasotracheal suction, and breathing treatments with nebulizers. S/p repair of aneurysm. Defer to thoracic surgeon PT and OT eval Nutrition. Oral diet Renal. monitor closely urine output, BUN and creatinine Endocrine. Diabetes. Monitor serial Acu checks and SSI for tight control ID monitor for signs of infection Protonix for stress ulcer prophylaxis Hal hose and SCD's for DVT prophylaxis Teo Acuna MD May 11, 2016 08:55
[2016-05-11] MEDS ORDERED: SODIUM CHLORIDE 0.9% FLUSH 5 ML FLUSH IVF SCH (09:00)
[2016-05-11] MEDS: SODIUM CHLORIDE 0.9% FLUSH 5 ML FLUSH FLUSH SCH ×2 (10:33→22:19)
[2016-05-11] MEDS ORDERED: LORazepam 2 MG/ML VIAL IV ONE (10:45)
[2016-05-11] MEDS ORDERED: EPINEPHrine HCL (1:10,000) 1 MG/10 ML SYRINGE ONE (11:02)
[2016-05-11] MEDS ORDERED: LIDOCAINE HCL 2% 100 MG/5 ML SYRINGE ONE (11:02)
[2016-05-11] MEDS ORDERED: ATROPINE SULFATE 1 MG/10 ML SYRINGE ONE ×2 (11:02→11:07)
--- NOTE | 2016-05-11 16:15 | RADRPT ---
EXAM DATE/TIME: 05/11/2016 11:42 [facility] COMPARISON: MRI BRAIN W & W/O CONTRAST, May 11, 2016, 3:27. INDICATIONS : Mass. Abnormal CT. MEDICAL HISTORY : Diabetes. SURGICAL HISTORY : Aortic valve replacement. Aneurysm repair. ENCOUNTER: Subsequent ACUITY: 2 day PAIN SCORE: 0/10 LOCATION: Cranial TECHNIQUE: MR spectroscopy was performed using single and multivoxel, and CSI technique. FINDINGS: MRI spectography was performed to further evaluate a small mass-like hypointense mass s een adjacent to the anterior limb internal capsule on the right side surrounded by extensive perivent ricular white matter changes. There is no abnormal contrast enhancement. By spectroscopy there is a normal spectrograph in the surrounding tissues. In the center of the "mas s" there is no metabolite suggesting central necrosis or tissue. This can be seen with both infarcti on with tissue as well as necrotic tissue. Given the size of this lesion, my recommendation would be to perform a follow-up MRI in six weeks to ensure this evolves as expected. CONCLUSION: Equivocal spectroscopy as described above. MRI surveillance is suggested without and with contrast. Kenneth Mcleod MD FACR on May 11, 2016 at 15:46 Board Certified Radiologist. This report was verified electronically.
[2016-05-11] MEDS ORDERED: MIDAZOLAM HCL 2 MG/2 ML VIAL IV PUSH STA (16:46)
[2016-05-11] MEDS ORDERED: MIDAZOLAM HCL 5 MG/ML VIAL (1 ML) ONE (16:48)
[2016-05-11] MEDS ORDERED: HALOPERIDOL LACTATE 5 MG/ML AMP IV PRN (17:00)
--- NOTE | 2016-05-11 17:34 | RADRPT ---
EXAM DATE/TIME: 05/11/2016 16:26 [facility] COMPARISON: No previous studies available for comparison. EXTERNAL COMPARISON : [facility], US CAROTID ARTERIES, June 11, 2015, July 07, 2011. INDICATIONS : Stroke. MEDICAL HISTORY : Aneurysm, abdominal. Hypercholesterolemia. A-fib. Asthma. Diabetes. CVA. SURGICAL HISTORY : Aortic valve replacement. Thoracotomy. Thorasic aneurysm repair. ENCOUNTER: Subsequent ACUITY: 1 day PAIN SCORE: Nonresponsive. LOCATION: Bilateral neck PEAK SYSTOLIC VELOCITIES (cm/sec): ICA/CCA RATIO: Right: 1.0 Left: 2.0 ICA: Right: 56 Left: 129 CCA: Right: 57 Left: 65 ECA: Right: 129 Left: 40 VERTEBRAL: Right: 48 antegrade Left: 53 antegrade Elevated flow velocities and ICA/CCA ratios have been found to correlate with increased degrees of vessel stenosis, calculated as percentage of diameter relative to a normal segment of distal ICA/CCA FINDINGS: RIGHT CAROTID: Mild plaque involving the carotid bulb and proximal ICA. No significant stenosis is visualized. The waveforms are within normal limits. LEFT CAROTID: Atherosclerotic plaque is seen involving the origin of the ICA. By grayscale analysis does generates a 50% luminal narrowing. ICA waveform shows minimal spectral broadening but is otherwise unremarkable . VERTEBRAL ARTERIES: Antegrade flow is seen in both vertebral arteries. MISCELLANEOUS: None. CONCLUSION: 1. Atherosclerotic plaque bilaterally more abundant on the left. A 50-69% stenosis is seen involving the left ICA origin. Right ICA is without stenosis. 2. Antegrade flow involving both vertebral arteries. Theron Mccracken Jr., MD on May 11, 2016 at 17:29 Board Certified Radiologist. This report was verified electronically.
--- NOTE | 2016-05-11 19:10 | MB ---
cc: JOSH MEJIA M.D. DATE OF CONSULTATION: 05/11/2016 REASON FOR CONSULTATION: Abnormal imaging study of the brain. HISTORY OF PRESENT ILLNESS: The patient is an 80 year-old seen in neurological consultation in regards to abnormal imaging study of the brain. The patient apparently was brought to the [facility] last evening because of some generalized weakness. He was found to have abnormal CT brain and brought to [facility]. He had an MRI brain that was reviewed. The patient has had recent heart surgery, apparently repair of thoracic aneurysm and valve replacement approximately 1 month ago. Reportedly he had been drowsy and weak, therefore, brought to the hospital at this time. There might have been some falls, though we are not quite certain about this. He had been on medications but the details are not clear yet. Apparent history of diabetes, atrial fibrillation, hypertension and may have had a history of stroke as well. PHYSICAL EXAMINATION: Examination shows the patient initially to be obviously confused. It appears that his confusion became more pronounced after he was given Ativan for the MRI. He is holding on the TV control apparatus and talking. When intercepted, he participated in the exam. He seems to know his age and thought he was in Dr. Chow's office. When asked, he knew some about the recent heart surgery which he stated was about a month ago. He did not know the name of his medications. His ocular movements were grossly intact and he was able to count fingers on the left and the right. No obvious hemiparesis. He does have generalized weakness but he raised the arms and starts raising the legs, questionably weaker on the left side. Reflexes were diminished throughout and plantar response is possibly extensor bilaterally. LABORATORY DATA: CBC shows white count 9.9, hemoglobin 10.8, platelet count 273. Chemistry: Normal with a glucose of 27 yesterday. I do not have the labs from today. CT and MRI of the brain were reviewed. There is microvascular disease but most significantly there is a right parietal frontal lesion with mild edema/very mild mass effect. There may be some component of hemorrhage in this lesion and it may well be a recent hemorrhagic infarct. ASSESSMENT Right frontal lesion, neoplasm versus subacute infarct with hemorrhagic component. Hypoglycemic event. Encephalopathy/confusion. This was aggravated by the use of Ativan for the MRI. Recent heart surgery, surgery on the thoracic aneurysm as per H&P. PLAN: I will follow him with you. I am going to request an EEG on this patient. I will discuss with family for additional information. He will need imaging studies in followup. I am going to obtain a carotid ultrasound as well, otherwise supportive medical care for the time being. Thank you for asking us to participate in his care. Josh Mejia MD [facility]/JAVIER /3:32 PM /7:00 PM
[2016-05-11] MEDS: traZODone HCL 50 MG TAB PO SCH ×2 (21:00→22:33)
[2016-05-11] MEDS: ATORVASTATIN 40 MG TAB PO SCH (22:16)
[2016-05-11] MEDS: METOPROLOL TARTRATE 25 MG TAB PO SCH (22:18)
--- NOTE | 2016-05-11 22:22 | EKG ---
Date Performed: 05/10/2016 Time Performed: 19:16:46 PTAGE: 80 years EKG: Sinus rhythm First degree AV block Left axis deviation RBBB with left anterior fascicular block Possible left trip tricular hypertrophy Lateral T wave changes are probably due to ventricular hypertrophy Abnormal ECG NO PREVIOUS TRACING DOCTOR: Joao Ricci Interpretating Date/Time 05/11/2016 22:19:59
--- NOTE | 2016-05-11 23:24 | MB ---
cc: WOLFGANG YIN M.D. DATE OF CONSULTATION: 05/11/2016 REASON FOR CONSULTATION: I am asked to see the patient because of "Factor five Leiden abnormality." PATIENT PROFILE The patient is an 80 year old white male. He is . He lives alone but has a friend who helps him. He was born in [facility]. He has three children, two daughters and a son. 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 He had smoked a pipe in the past, he does not drink alcohol. HISTORY OF PRESENT ILLNESS The patient is an 80 year-old male with significant underlying medical problems. He has A-fib, hypertension, COPD, elevated cholesterol and diabetes. He has had a stroke in the past. In March 29, 2016, he had an aortic valve replacement by Dr. Irvin. In speaking with his [id number], there was a very slow and erratic recovery, and never fully recovered. She believes he may have had some neurological event from which he has not recovered. He developed significant confusion and weakness and was brought to the emergency room by his son. He had a serum glucose of 27 which at least explains the acute event. This led to a number of other studies. On 05/10/2016, he had a head CT scan showing cerebral edema in the right frontal lobe with a vasogenic pattern and concern for mass. There was no evidence of bleeding. A spectroscopy MRI of the brain showed a small hypodense mass-like area adjacent to the anterior limb of the internal capsule on the right side. This was felt to be most consistent with infarct with necrotic tissue. It was recommended that the patient have a repeat MRI in six weeks. There was no evidence of bleeding. A lower extremity ultrasound on 05/11/2016 showed no evidence of DVT. Brain MRI with and without contrast showed a 1.3 cm area of signal abnormality in the right periventricular white area with surrounding edema. I spoke with Dr. Acuna who is a neurosurgeon, who saw him. He feels that this is likely to be a a result of a stroke. PAST SURGICAL HISTORY 1. Aortic valve replacement approximately March 29, 2016 in [facility]. PAST MEDICAL HISTORY: 1. A-fib. 2. Hypertension. 3. COPD. 4. Elevated cholesterol. 5. Diabetes type 2. 6. Small cerebrovascular accident in the past. 7. 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 I called [facility] laboratory and asked them if they had done any Factor V testing or any testing for hypocoagulable state and they went through records and could find none. I have no idea where this comes from. There has been no history of venous thrombosis or pulmonary emboli that I am aware of or the [id number] is aware of. MEDICATIONS: Prior to arrival: 1. Norvasc. 2. Atorvastatin 3. Benazepril 4. Invokana. 5. Toviaz 6. Glimepiride. 7. Ventavis 8. Metformin 9. Metoprolol 10. Januvia. 11. Spiriva 12. Trazodone ALLERGIES: None that I am aware of. FAMILY HISTORY: Unobtainable. REVIEW OF SYSTEMS: The patient is lethargic. He has been sedated for tests and cannot answer any questions. PHYSICAL EXAMINATION: Reveals a gentleman who is 80 years old but looks much older. He is not able to focus with very limited conversation due to recent sedation. VITAL SIGNS: Blood pressure is 90/85, respiratory rate is 26, pulse 90 afebrile. O2 sat 98%. Head is normocephalic. Sclera and conjunctivae are normal. There is no cervical, supraclavicular, axillary or inguinal adenopathy. Heart: Regular rhythm. Occasional premature beat, 2/6 systolic murmur. Lungs: Clear. Abdomen: Without hepatosplenomegaly. Extremities: Trace edema. Musculoskeletal: No bone pain. Neurologic: Patient not able to focus or communicate at the moment due to sedation. Moves all extremities well. Skin: Areas of surgery are healing well. ASSESSMENT The patient is an 80 year-old male. I am asked to see him because of Factor V Leiden mutation. I have no convincing documentation. I have on a piece of paper, Factor V deficiency. I do not know what this refers to. I have contacted [facility] and they have no record of testing, and therefore at the moment I cannot assume that he has a Factor V Leiden mutation or some type of deficiency of Factor V. He certainly has no history of bleeding disorder and went through a large surgery, without to the best of my knowledge, excessive bleeding. RECOMMENDATIONS: 1. I have ordered a Factor V Leiden. It is going to take a while for this to come back. 2. The patient has compression stockings. If these are removed and he is inactive, then I would recommend Lovenox 40 milligrams subcut daily while he is in the hospital as factor V Leiden increases the risk of venous thrombosis. 3. What is obviously a life threatening problem for this gentleman is the hypoglycemia and he probably would benefit from an lcpc. I told his [id number] this. Unfortunately we do not have a lot of endocrinologists in this area. Following his operation he had been on aspirin. The aspirin has been discontinued and at this point there is no evidence of [employer] bleeding. It appears that he has probably had a recent stroke. I would recommend that he go back on his aspirin but will defer this to the medical service. MD BRITNEY Garcia/JAVIER /6:09 PM /10:52 PM MTDElie
[2016-05-12] VITALS (12 sets, daily range): BP systolic 130–177; BP diastolic 67–86; PULSE 66–86; RESP 16–26; TEMP 97.8–98.3; O2SAT 94–98
[2016-05-12] MEDS: LABETALOL HCL 100 MG/20 ML VIAL IV PUSH PRN ×2 (03:22→12:45)
[2016-05-12 04:41] LABS: AUTOMATED NEUTROPHIL # 5.3 TH/MM3 (1.8-7.7); BASOPHIL % 0.6 % (0.0-2.0); EOSINOPHIL # 0.3 TH/MM3 (0-0.4); EOSINOPHIL % 4.1 % (0.0-4.0); HEMATOCRIT 32.3 % (39.0-51.0); HEMO FLAGS AUTO DIFF; LYMPH % 16.8 % (9.0-44.0); LYMPHOCYTE # 1.3 TH/MM3 (1.0-4.8); MEAN CELL VOLUME 71.5 FL (80.0-100.0); MEAN CORPUSCULAR HGB CONC 32.2 % (32.0-36.0); MONO % 8.6 % (0.0-8.0); NEUT % 69.9 % (16.0-70.0); PLATELET COUNT 242 TH/MM3 (150-450); RED BLOOD COUNT 4.53 MIL/MM3 (4.50-5.90); RED CELL DISTRIBUTION WIDTH 16.2 % (11.6-17.2); WHITE BLOOD COUNT 7.6 TH/MM3 (4.0-11.0)
[2016-05-12 05:05] LABS: BICARBONATE 30.6 MEQ/L (21.0-32.0); POTASSIUM 3.5 MEQ/L (3.5-5.1)
[2016-05-12] MEDS ORDERED: LABETALOL HCL 100 MG/20 ML VIAL IVP ONE (05:30)
[2016-05-12 05:31] LABS: SCAN/DIFF AUTO DIFF CONFIRMED
[2016-05-12] MEDS: METOPROLOL TARTRATE 25 MG TAB PO SCH ×2 (08:03→19:58)
[2016-05-12] MEDS: TOLTERODINE TARTRATE 4 MG CAP LA PO SCH (08:04)
[2016-05-12] MEDS: SODIUM CHLORIDE 0.9% FLUSH 5 ML FLUSH FLUSH SCH ×2 (08:04→19:58)
[2016-05-12] MEDS: LISINOPRIL 20 MG TAB PO SCH (08:04)
[2016-05-12] MEDS: amLODIPine BESYLATE 5 MG TAB PO SCH (08:04)
[2016-05-12] MEDS ORDERED: TIOTROPIUM INH SCH (09:00)
--- NOTE | 2016-05-12 11:08 | MG ---
cc: DORITA PITTMAN M.D. Lab No: [id number] Date: 05/12/2016 Age: 80 Sex: M Race: __ REFERRING PHYSICIAN Dr. Mejia TECHNIQUE Awake, drowsy, asleep study with photic stimulation. INDICATIONS This is an 80-year-old man with progressive worsening of generalized weakness with a history of stroke, AAA, asthma, atrial fibrillation, anticoagulant therapy. MEDICATIONS On: 1. Norvasc 2. Lisinopril 3. Lipitor 4. Lopressor 5. Desyrel 6. Haldol 7. Trandate DESCRIPTION OF RECORD Quit a bit of eye movement artifact. There is some mild slowing primary 6 Hz at times. EKG looks sinus. There is some foot twitching. There is no correlation with any epileptic activity. Hyperventilation was not performed. Photic stimulation showed some mild posterior driving response. IMPRESSION Mildly slow EEG without any epileptiform features may be due to mild encephalopathic process without any epileptiform features in this recording. Clinical correlation. MD DEXTER Hubbard/EDELMIRA /10:58 AM /11:03 AM
--- NOTE | 2016-05-12 15:34 | HHI.CCPN ---
Subjective Remarks/Hospital Course Hospital Course: 80-year-old male presents to the emergency department by private transportation by his son for evaluation of progressively worsening generalized weakness. He has been recovering over the past month from surgery performed at [facility] for repair of a thoracic aneurysm and valve replacement. Patient understands he is in the hospital however he doesn't remember why he came here at the first place. He does not have any complaints at this time. He has had no injury or fall. No reported fever. Due to his ongoing progression of weakness son decided to bring him to the emergency department. Patient has been ambulatory with assistance of a cane and a health care provider as he is undergoing home health rehabilitation since being discharged from rehabilitation facility 3 weeks ago. Subjective: 05/12: doing well this morning. MRI and spect MRI demonstrates possible mass. patient neuro intact this AM. tolerating diet. ambulating with assistance. doing well. no complaints. wants to leave. Objective Vital Signs Date Time Temp Pulse Resp B/P Pulse Ox O2 Delivery O2 Flow Rate FiO2 05/12/16 14:00 80 05/12/16 12:00 98.0 20 152/86 98 05/12/16 07:00 Room Air 21 05/11/16 23:00 2.00 Intake and Output 05/11/16 05/11/16 05/12/16 08:00 16:00 00:00 Intake Total 1486 ml 945 ml 90 ml Output Total 400 ml 600 ml 800 ml Balance 1086 ml 345 ml -710 ml Result Diagram: 05/12/16 0358 05/12/16 0358 Imaging Last 24 hours Impressions Brain MRI 05/11/16 0141 Signed Impressions: Service Date/Time: Wednesday, May 11, 2016 03:27 - CONCLUSION: 1. 1.3 cm area of focal signal abnormality in the right periventricular white matter with some surrounding edema. This area is nonspecific. There is some suggestion this may be related to a focal area of prior hemorrhage. An area of prior infarction with some minimal enhancement could have a similar appearance. A small mass such as a glioma with mild mass effect could also have this appearance. Given the surrounding edema only causes mild midline shift and enhancement is very slight , as above, it is thought that provided there is no clinical contraindication, a very short term interval followup MRI examination in 4 weeks could be recommended. Neurosurgical consultation for followup would also be recommended. 2. Suspected areas of ischemic demyelination in the cerebral white matter with some T2 shine through phenomenon seen on the diffusion weighted images. Pancho Lugo MD Spectroscopy MRI 05/11/16 Signed Impressions: Service Date/Time: Wednesday, May 11, 2016 11:42 - CONCLUSION: Equivocal spectroscopy as described above. MRI surveillance is suggested without and with contrast. Kenneth Mcleod MD Lower Extremity Ultrasound 05/11/16 Signed Impressions: Service Date/Time: Wednesday, May 11, 2016 02:14 - CONCLUSION: 1. No DVT. 2. Complex elongated cystic structure in the superficial medial right mid thigh. No flow is seen within this. This could be a seroma if the patient has had prior surgery in this region. Pancho Lugo MD Carotid Artery Ultrasound 05/11/16 Signed Impressions: Service Date/Time: Wednesday, May 11, 2016 16:26 - CONCLUSION: 1. Atherosclerotic plaque bilaterally more abundant on the left. A 50-69%% stenosis is seen involving the left ICA origin. Right ICA is without stenosis. 2. Antegrade flow involving both vertebral arteries. Theron Mccracken Jr., MD Objective Remarks GENERAL: Well-nourished, well-developed patient. SKIN: Warm and dry. HEAD: Normocephalic. EYES: No scleral icterus. No injection or drainage. NECK: Supple, trachea midline. No JVD or lymphadenopathy. CARDIOVASCULAR: Regular rate and rhythm without murmurs, gallops, or rubs. RESPIRATORY: Breath sounds equal bilaterally. No accessory muscle use. GASTROINTESTINAL: Abdomen soft, non-tender, nondistended. MUSCULOSKELETAL: No cyanosis, or edema. BACK: Nontender without obvious deformity. No CVA tenderness. EXTREMITIES: No focal weakness appreciated A/P Problem List: (1) Altered mental status ICD Code: R41.82 Status: Resolved (2) Intracranial mass ICD Code: R90.0 Status: Acute (3) Hypoglycemia due to type 2 diabetes mellitus ICD Code: E11.649 Status: Resolved Assessment and Plan Assessment: 80yM initially presented with altered mental status, hypoglycemia, possible brain lesion, now clinically improved and stable for transfer to floor. Altered mental status- resolved. - Due to brain mass/bleed - Management per neurosurgery Hypertension - Norvasc - Lisinopril Atrial fibrillation - Rate control - Metoprolol ability to rate control - no anticoagulation due to brain mass and bleed Factor V deficiency - Hematology consult Hypoglycemia- resolved. - Hold all diabetes medications - stop d10w. - liberalize bs checks. DVT GI prophylaxis - Teds and SCDs Pepcid - No pharmacological DVT prophylaxis D2 intracranial bleed Dispo: --transfer to floor. --hospitalist consult. Problem Qualifiers (1) Altered mental status: Qualified Code: R40.0 - Somnolence Heath Mohan MD May 12, 2016 15:34
--- NOTE | 2016-05-12 17:48 | HHI.PR ---
Review/Management Daily Summary 05/12 doing better but still inappropriate, wants to go home and says has a friend who lives with him and will help moves limbs well at bedside needs rehab care and follow up imaging studies, eeg ok i would see him in followup in 2 weeks in the office Subjective Subjective Comments No acute events reported No headache No chest pain No dyspnea Active Medications Current Medications Medications (Trade) Dose Ordered Sig/Tawnya Route Start Time Stop Time Status Last Admin (NS Flush) 2 ml UNSCH PRN FLUSH 05/11/16 01:45 (NS Flush) 2 ml BID FLUSH 05/11/16 09:00 05/12/16 08:04 (Narcan Inj) 0.4 mg UNSCH PRN IV 05/11/16 01:45 (Norvasc) 5 mg DAILY PO 05/12/16 09:00 05/12/16 08:04 (Lipitor) 40 mg HS PO 05/11/16 21:00 05/11/16 22:16 (Prinivil) 40 mg DAILY PO 05/12/16 09:00 05/12/16 08:04 (Lopressor) 25 mg BID PO 05/11/16 21:00 05/12/16 08:03 (Desyrel) 50 mg HS PO 05/11/16 21:00 (Detrol La) 4 mg DAILY PO 05/12/16 09:00 05/12/16 08:04 Patient Own Medication PT OWN MED: TIOTRIP... DAILY INH 05/12/16 09:00 Hold (Haldol Inj) 5 mg Q4H PRN IV 05/11/16 17:00 05/11/16 16:16 (Trandate Inj) 20 mg Q4H PRN IV PUSH 05/11/16 16:30 05/12/16 12:45 Allergies Allergies Coded Allergies No Known Allergies (Unverified05/18/15) Exam I&O / VS 05/11/16 05/11/16 05/12/16 15:00 23:00 07:00 Intake Total 945 ml 90 ml 0 ml Output Total 600 ml 800 ml 1125 ml Balance 345 ml -710 ml -1125 ml Intake Oral 420 ml 0 ml 0 ml IV Total 525 ml 90 ml 0 ml Output Urine Total 600 ml 800 ml 1125 ml # Bowel Movements 0 0 0 Vital Signs Date Time Temp Pulse Resp B/P Pulse Ox O2 Delivery O2 Flow Rate FiO2 05/12/16 17:31 Room Air 05/12/16 16:00 98.3 77 20 138/77 98 05/12/16 16:00 77 05/12/16 14:00 80 05/12/16 12:00 98.0 72 20 152/86 98 05/12/16 12:00 72 05/12/16 10:00 75 05/12/16 08:26 98 05/12/16 08:00 98.3 75 21 177/86 98 05/12/16 08:00 71 05/12/16 07:00 99 Room Air 21 05/12/16 06:00 72 05/12/16 04:00 97.9 76 26 177/83 94 05/12/16 04:00 76 05/12/16 02:00 66 05/12/16 00:00 75 05/12/16 00:00 98.3 75 25 137/67 98 05/11/16 23:00 97 Nasal Cannula 2.00 05/11/16 22:00 83 05/11/16 20:00 81 05/11/16 20:00 98.2 81 26 117/60 95 05/11/16 19:45 96 05/11/16 19:00 94 Room Air 05/11/16 18:00 78 Objective Radiology Results Last 48 hours Impressions Brain MRI 05/11/16 0141 Signed Impressions: Service Date/Time: Wednesday, May 11, 2016 03:27 - CONCLUSION: 1. 1.3 cm area of focal signal abnormality in the right periventricular white matter with some surrounding edema. This area is nonspecific. There is some suggestion this may be related to a focal area of prior hemorrhage. An area of prior infarction with some minimal enhancement could have a similar appearance. A small mass such as a glioma with mild mass effect could also have this appearance. Given the surrounding edema only causes mild midline shift and enhancement is very slight , as above, it is thought that provided there is no clinical contraindication, a very short term interval followup MRI examination in 4 weeks could be recommended. Neurosurgical consultation for followup would also be recommended. 2. Suspected areas of ischemic demyelination in the cerebral white matter with some T2 shine through phenomenon seen on the diffusion weighted images. Pancho Lugo MD Spectroscopy MRI 05/11/16 0000 Signed Impressions: Service Date/Time: Wednesday, May 11, 2016 11:42 - CONCLUSION: Equivocal spectroscopy as described above. MRI surveillance is suggested without and with contrast. Kenneth Mcleod MD Lower Extremity Ultrasound 05/11/16 0000 Signed Impressions: Service Date/Time: Wednesday, May 11, 2016 02:14 - CONCLUSION: 1. No DVT. 2. Complex elongated cystic structure in the superficial medial right mid thigh. No flow is seen within this. This could be a seroma if the patient has had prior surgery in this region. Pancho Lugo MD Carotid Artery Ultrasound 05/11/16 0000 Signed Impressions: Service Date/Time: Wednesday, May 11, 2016 16:26 - CONCLUSION: 1. Atherosclerotic plaque bilaterally more abundant on the left. A 50-69%% stenosis is seen involving the left ICA origin. Right ICA is without stenosis. 2. Antegrade flow involving both vertebral arteries. Theron Mccracken Jr., MD Micro and Labs Laboratory Tests Test 05/12/16 03:58 White Blood Count 7.6 Red Blood Count 4.53 Hemoglobin 10.4 Hematocrit 32.3 Mean Corpuscular Volume 71.5 Mean Corpuscular Hemoglobin 23.0 Mean Corpuscular Hemoglobin 32.2 Concent Red Cell Distribution Width 16.2 Platelet Count 242 Mean Platelet Volume 8.0 Neutrophils (%) (Auto) 69.9 Lymphocytes (%) (Auto) 16.8 Monocytes (%) (Auto) 8.6 Eosinophils (%) (Auto) 4.1 Basophils (%) (Auto) 0.6 Neutrophils # (Auto) 5.3 Lymphocytes # (Auto) 1.3 Monocytes # (Auto) 0.6 Eosinophils # (Auto) 0.3 Basophils # (Auto) 0.0 CBC Comment AUTO DIFF Differential Comment AUTO DIFF CONFIRMED Sodium Level 142 Potassium Level 3.5 Chloride Level 103 Carbon Dioxide Level 30.6 Anion Gap 8 Blood Urea Nitrogen 11 Creatinine 0.95 Estimat Glomerular Filtration 76 Rate Random Glucose 138 Calcium Level 8.5 Zheng Mejia MD May 12, 2016 17:47
[2016-05-12] MEDS: ATORVASTATIN 40 MG TAB PO SCH (19:58)
[2016-05-12] MEDS: traZODone HCL 50 MG TAB PO SCH (19:58)
[2016-05-12] MEDS ORDERED: DEXTROSE 50% IN WATER 50 ML VIAL(D50) IV PUSH PRN (20:30)
[2016-05-12] MEDS ORDERED: GLUCAGON 1 MG/ML VIAL OTHER PRN (20:30)
[2016-05-12] MEDS: INSULIN ASPART SUPPLEMENTAL SCALE SQ SCH (21:19)
[2016-05-12] MEDS ORDERED: MENTHOL LOZENGE BUCCAL PRN (22:45)
[2016-05-13] VITALS: BP 123/60; PULSE 77; RESP 18; TEMP 99.1; O2SAT 96
[2016-05-13 04:00] VITALS: BP 135/62; PULSE 87; RESP 16; TEMP 99.8; O2SAT 95
[2016-05-13 05:16] LABS: MEAN CORPUSCULAR HEMOGLOBIN 22.8 PG (27.0-34.0); MEAN CORPUSCULAR HGB CONC 32.1 % (32.0-36.0); PLATELET COUNT 258 TH/MM3 (150-450); RED CELL DISTRIBUTION WIDTH 16.4 % (11.6-17.2); WHITE BLOOD COUNT 8.4 TH/MM3 (4.0-11.0)
[2016-05-13 05:46] LABS: BICARBONATE 29.3 MEQ/L (21.0-32.0); POTASSIUM 3.6 MEQ/L (3.5-5.1)
[2016-05-13 06:03] LABS: REVIEW FLAG FINAL
[2016-05-13] MEDS: INSULIN ASPART SUPPLEMENTAL SCALE SQ SCH (08:17)
[2016-05-13 08:18] VITALS: BP 146/70; PULSE 86; RESP 16; TEMP 98; O2SAT 95
[2016-05-13] MEDS: METOPROLOL TARTRATE 25 MG TAB PO SCH (08:18)
[2016-05-13] MEDS: amLODIPine BESYLATE 5 MG TAB PO SCH (08:18)
[2016-05-13] MEDS: TOLTERODINE TARTRATE 4 MG CAP LA PO SCH ×2 (08:18→08:19)
[2016-05-13] MEDS: SODIUM CHLORIDE 0.9% FLUSH 5 ML FLUSH FLUSH SCH (08:18)
[2016-05-13] MEDS: LISINOPRIL 20 MG TAB PO SCH (08:18)
--- NOTE | 2016-05-13 08:32 | HHI.PR ---
Review/Management Daily Summary 05/12 doing better but still inappropriate, wants to go home and says has a friend who lives with him and will help moves limbs well at bedside needs rehab care and follow up imaging studies, eeg ok i would see him in followup in 2 weeks in the office 05/13 doing well, going home today either d/c or ama spoke with staff ok neuro to d/c with f/u in 2 weeks no antiplatelet till we follow imaging brain because of possible associated hemorrhage stroke vs neoplasm Subjective Subjective Comments No acute events reported No headache No chest pain No dyspnea Active Medications Current Medications Medications (Trade) Dose Ordered Sig/Tawnya Route Start Time Stop Time Status Last Admin (NS Flush) 2 ml UNSCH PRN FLUSH 05/11/16 01:45 (NS Flush) 2 ml BID FLUSH 05/11/16 09:00 05/12/16 19:58 (Narcan Inj) 0.4 mg UNSCH PRN IV 05/11/16 01:45 (Norvasc) 5 mg DAILY PO 05/12/16 09:00 05/13/16 08:18 (Lipitor) 40 mg HS PO 05/11/16 21:00 05/12/16 19:58 (Prinivil) 40 mg DAILY PO 05/12/16 09:00 05/13/16 08:18 (Lopressor) 25 mg BID PO 05/11/16 21:00 05/13/16 08:18 (Desyrel) 50 mg HS PO 05/11/16 21:00 05/12/16 19:58 (Detrol La) 4 mg DAILY PO 05/12/16 09:00 05/13/16 08:19 Patient Own Medication PT OWN MED: TIOTRIP... DAILY INH 05/12/16 09:00 Hold (Haldol Inj) 5 mg Q4H PRN IV 05/11/16 17:00 05/11/16 16:16 (Trandate Inj) 20 mg Q4H PRN IV PUSH 05/11/16 16:30 05/12/16 12:45 (D50w (Vial) Inj) 25 ml UNSCH PRN IV PUSH 05/12/16 20:30 (Glucagon Inj) 1 mg UNSCH PRN OTHER 05/12/16 20:30 ([place] Alissa) 1 lozenge UNSCH PRN BUCCAL 05/12/16 22:45 05/12/16 23:26 Allergies Allergies Coded Allergies No Known Allergies (Unverified05/18/15) Exam I&O / VS 05/12/16 05/12/16 05/13/16 15:00 23:00 07:00 Intake Total 380 ml 840 ml 120 ml Output Total 600 ml 1225 ml 400 ml Balance -220 ml -385 ml -280 ml Intake Oral 360 ml 840 ml 120 ml IV Total 20 ml Output Urine Total 600 ml 1225 ml 400 ml # Bowel Movements 0 0 0 Vital Signs Date Time Temp Pulse Resp B/P Pulse Ox O2 Delivery O2 Flow Rate FiO2 05/13/16 04:00 99.8 87 16 135/62 95 05/13/16 00:00 99.1 77 18 123/60 96 05/12/16 20:00 97.8 86 19 150/70 94 05/12/16 18:15 Room Air 05/12/16 17:45 97.9 76 16 130/74 98 05/12/16 17:31 Room Air 05/12/16 16:00 98.3 77 20 138/77 98 05/12/16 16:00 77 05/12/16 14:00 80 05/12/16 12:00 98.0 72 20 152/86 98 05/12/16 12:00 72 05/12/16 10:00 75 Objective Micro and Labs Laboratory Tests Test 05/13/16 05:07 White Blood Count 8.4 Red Blood Count 4.50 Hemoglobin 10.3 Hematocrit 32.0 Mean Corpuscular Volume 71.0 Mean Corpuscular Hemoglobin 22.8 Mean Corpuscular Hemoglobin 32.1 Concent Red Cell Distribution Width 16.4 Platelet Count 258 Mean Platelet Volume 7.7 Sodium Level 141 Potassium Level 3.6 Chloride Level 103 Carbon Dioxide Level 29.3 Anion Gap 9 Blood Urea Nitrogen 18 Creatinine 1.12 Estimat Glomerular Filtration 63 Rate Random Glucose 228 Calcium Level 8.5 Zheng Mejia MD May 13, 2016 08:32
[2016-05-13] MEDS ORDERED: GLIM1TAB PO (08:38)
--- NOTE | 2016-05-13 09:16 | HHI.DS ---
Discharge Summary Admission Date May 11, 2016 at 2:02 am Discharge Date: May 13, 2016 Admitting Diagnosis AMS; R intracranial mass; DM w hypoglycemia (1) Hemorrhagic stroke ICD Code: I61.9 Diagnosis: Principal (2) DM (diabetes mellitus) ICD Code: E11.9 Diagnosis: Principal (3) HTN (hypertension) ICD Code: I10 Procedures 05/12/2016 EEG IMPRESSION Mildly slow EEG without any epileptiform features may be due to mild encephalopathic process without any epileptiform features in this recording. Clinical correlation. Brief History - From Admission 80-year-old male presents to the emergency department by private transportation by his son for evaluation of progressively worsening generalized weakness. 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 Patient understands he is in the hospital however he doesn't remember why he came here at the first place. He does not have any complaints at this time. He has had no injury or fall. No reported fever. Due to his ongoing progression of weakness son decided to bring him to the emergency department. Patient has been ambulatory with assistance of a cane and a health care provider as he is undergoing home health rehabilitation since being discharged from rehabilitation facility 3 weeks ago. CBC/BMP: 05/13/16 0507 05/13/16 0507 Significant Findings Laboratory Tests Test 05/10/16 05/12/16 05/13/16 19:20 03:58 05:07 Hemoglobin 10.8 GM/DL 10.4 GM/DL 10.3 GM/DL (13.0-17.0) (13.0-17.0) (13.0-17.0) Hematocrit 33.6 % 32.3 % 32.0 % (39.0-51.0) (39.0-51.0) (39.0-51.0) Mean Corpuscular Volume 72.9 FL 71.5 FL 71.0 FL (80.0-100.0) (80.0-100.0) (80.0-100.0) Mean Corpuscular Hemoglobin 23.5 PG 23.0 PG 22.8 PG (27.0-34.0) (27.0-34.0) (27.0-34.0) Neutrophils (%) (Auto) 75.0 % (16.0-70.0) Ovalocytes 1+ (NORMAL) Keratocytes 1+ (NORMAL) Prothrombin Time 11.9 SEC (9.8-11.6) Estimat Glomerular Filtration 73 ML/MIN (>89) 76 ML/MIN (>89) 63 ML/MIN (>89) Rate Random Glucose 27 MG/DL 138 MG/DL 228 MG/DL (74-106) (74-106) (74-106) Calcium Level 8.1 MG/DL (8.5-10.1) Albumin 2.9 GM/DL (3.4-5.0) Monocytes (%) (Auto) 8.6 % (0.0-8.0) Eosinophils (%) (Auto) 4.1 % (0.0-4.0) Imaging Last Impressions Brain MRI 05/11/16 0141 Signed Impressions: Service Date/Time: Wednesday, May 11, 2016 03:27 - CONCLUSION: 1. 1.3 cm area of focal signal abnormality in the right periventricular white matter with some surrounding edema. This area is nonspecific. There is some suggestion this may be related to a focal area of prior hemorrhage. An area of prior infarction with some minimal enhancement could have a similar appearance. A small mass such as a glioma with mild mass effect could also have this appearance. Given the surrounding edema only causes mild midline shift and enhancement is very slight , as above, it is thought that provided there is no clinical contraindication, a very short term interval followup MRI examination in 4 weeks could be recommended. Neurosurgical consultation for followup would also be recommended. 2. Suspected areas of ischemic demyelination in the cerebral white matter with some T2 shine through phenomenon seen on the diffusion weighted images. Pancho Lugo MD Spectroscopy MRI 05/11/16 0000 Signed Impressions: Service Date/Time: Wednesday, May 11, 2016 11:42 - CONCLUSION: Equivocal spectroscopy as described above. MRI surveillance is suggested without and with contrast. Kenneth Mcleod MD Lower Extremity Ultrasound 05/11/16 0000 Signed Impressions: Service Date/Time: Wednesday, May 11, 2016 02:14 - CONCLUSION: 1. No DVT. 2. Complex elongated cystic structure in the superficial medial right mid thigh. No flow is seen within this. This could be a seroma if the patient has had prior surgery in this region. Pancho Lugo MD Carotid Artery Ultrasound 05/11/16 0000 Signed Impressions: Service Date/Time: Wednesday, May 11, 2016 16:26 - CONCLUSION: 1. Atherosclerotic plaque bilaterally more abundant on the left. A 50-69%% stenosis is seen involving the left ICA origin. Right ICA is without stenosis. 2. Antegrade flow involving both vertebral arteries. Theron Mccracken Jr., MD Head CT 05/10/16 0000 Signed Impressions: Service Date/Time: Tuesday, May 10, 2016 21:46 - CONCLUSION: 1. Cerebral edema in the right frontal lobe with a vasogenic pattern and of concern for an underlying intra-axial mass. If there are no contraindications, MRI of the brain with and without contrast is recommended. There is about 4 mm of leftward midline shift. 2. No bleed. 3. Mild sinus disease. Pancho Norton MD Chest X-Ray 05/10/16 0000 Signed Impressions: Service Date/Time: Tuesday, May 10, 2016 22:48 - CONCLUSION: Mild to moderate failure. Valve replacement since the prior study. Pancho Norton MD PE at Discharge GENERAL: Alert, NAD. SKIN: Warm and dry. HEAD: Normocephalic. EYES: No scleral icterus. No injection or drainage. NECK: Supple, trachea midline. No JVD or lymphadenopathy. CARDIOVASCULAR: Regular rate and rhythm without murmurs, gallops, or rubs. RESPIRATORY: Breath sounds equal bilaterally. No accessory muscle use. GASTROINTESTINAL: Abdomen soft, non-tender, nondistended. MUSCULOSKELETAL: No cyanosis, or edema. BACK: Nontender without obvious deformity. No CVA tenderness. Pt update on day of discharge Patient is doing well. No acute concerns. Tolerating diet. Wants to go home. Hospital Course Mr. Oneill is an 80 year old male who was admitted on 05/10/2016 due to progressive weakness. Patient had heart surgery for thoracic aneurysm prior to this admission. Neurology was consulted. CT, MRI brain were completed - showed right parietal frontal lesion with mild edema/very mild mass effect. Neurology suspected a recent hemorrhagic infarct. Neurology cleared for discharge on 2016. Patient was eager to go home. He was subsequently discharged home with follow up with Neurology within two weeks after discharge. Pt Condition on Discharge: Good Discharge Disposition: Disch w/ Home Health Serv Discharge Time: > 30 minutes Discharge Instructions DIET: Follow Instructions for: Diabetic Diet Activities you can perform: Regular-No Restrictions Follow up Referrals: Endocrinology - 1 Week Neurology - 2 Weeks with Zheng Mejia MD PCP Follow-up - 1 Week New Medications: Glimepiride (Glimepiride) 1 Mg Tab 1 MG PO DAILY Take with breakfast or first main meal Blood Sugar Management #30 Ref 0 TAB Continued Medications: Amlodipine (Norvasc) 5 Mg Tab 5 MG PO DAILY Blood Pressure Management #30 Ref 0 TAB Atorvastatin (Atorvastatin) 40 Mg Tab 40 MG PO HS Cholesterol Management #30 Ref 0 TAB Benazepril (Benazepril) 40 Mg Tab 40 MG PO DAILY Blood Pressure Management #30 Ref 0 TAB Canagliflozin (Invokana) 100 Mg Tab 100 MG PO DAILY Take before 1st meal of day. Blood Sugar Management #30 Ref 0 TAB Fesoterodine ER (Toviaz ER) 4 mg Aaron 4 MG PO DAILY Overactive bladder #30 Ref 0 TAB Iloprost Inh (Ventavis Inh) 10 Mcg/Ml Soln Metformin (Metformin) 1,000 Mg Tab 1000 MG PO BIDPC With meals Blood Sugar Management #60 Ref 0 TAB Metoprolol Tartrate (Metoprolol Tartrate) 25 Mg Tab 25 MG PO BID #60 Ref 0 TAB Sitagliptin (Januvia) 100 Mg Tab 100 MG PO DAILY Blood Sugar Management #30 Ref 0 TAB Tiotropium Inh (Spiriva Respimat Inh) 1.25 Mcg/Act Aero 2 PUFF INH DAILY 1.25 mcg = 1 inhalation Asthma Management #1 Ref 0 INHALER Trazodone (Trazodone) 50 Mg Tab 50 MG PO HS Control Depression #30 Ref 0 TAB ([Afib Med]) ([Asthma Med]) ([B/P Med]) ([Glucose Med]) Discontinued Medications: Glimepiride (Glimepiride) 4 Mg Tab 4 MG PO BIDAC Blood Sugar Management #60 Ref 0 TAB Dimple Stokes DO May 13, 2016 09:16
--- NOTE | 2016-05-13 09:23 | HHI.FF ---
Face to Face Verification Diagnosis: (1) Hypoglycemia due to type 2 diabetes mellitus (2) Intracranial mass (3) Altered mental status Physical Therapy Order: Evaluate and Treat, Improve ambulation, Strength and gait training Home Health Nursing Order: Medical education Signs/symptoms of disease process Diabetic education Medication education-adverse effect Nursing assessment with vital signs I have seen patient David Oneill on 05/13/16. My clinical findings support the need for the requested home health care services because: Ltd mobility - disease progression Deconditioned w/ increased weakness Med compliance is questionable Limited ability to care for self Need for psychosocial assistance Impaired cognition/judgement High risk of falls Infection w/ risk of complications I certify that my clinical findings support that this patient is homebound because: Impaired cognitive ability/safety Unsteady gait/balance Unsafe to leave home unassisted Need for psychosocial assistance Unable to use public transportation Dimple Stokes DO May 13, 2016 9:23 am
== END 2016-05-13 09:25 | disposition home or self-care (01) | DRG 80 ==
LOC: PHED 19:01 → PHEDA 05-11 02:02 → N03B 05-11 05:24 → N06B 05-12 16:50 → N06A 05-12 18:54
PROVIDERS: ADMIT Hospitalist; ATTEND Hospitalist
PROC: 8E023DZ Near Infrared Spectroscopy of Circulatory System, Percutaneous Approach (ICD-10-PCS; principal; 2016-05-11)
DX: G93.6 Cerebral edema (principal); G93.40 Encephalopathy, unspecified; I62.9 Nontraumatic intracranial hemorrhage, unspecified; D68.2 Hereditary deficiency of other clotting factors; E11.649 Type 2 diabetes mellitus with hypoglycemia without coma; E78.00 Pure hypercholesterolemia, unspecified; I10 Essential (primary) hypertension; I48.91 Unspecified atrial fibrillation; J44.9 Chronic obstructive pulmonary disease, unspecified; J45.909 Unspecified asthma, uncomplicated; F17.290 Nicotine dependence, other tobacco product, uncomplicated; Z79.899 Other long term (current) drug therapy; Z86.73 Personal history of transient ischemic attack (TIA), and cerebral infarction without residual deficits; Z86.79 Personal history of other diseases of the circulatory system; Z95.2 Presence of prosthetic heart valve
CPT/HCPCS: 70450; 70553; 71010; 76390; 80048; 80053; 81241; 82550; 82948; 83605; 84484; 85025; 85027; 85610; 85730; 93005; 93880; 93970; 95819; 96361; 96365; 96375; 96376; A9579; J0171; J0461; J1630; J1815; J2060; J2250; J7030; J7042

== ENCOUNTER 2016-09-27 09:09 | Observation (INO) | payer OTHER ==
[2016-09-27] VITALS (13 sets, daily range): BP systolic 127–159; BP diastolic 68–83; PULSE 45–99; RESP 15–20; TEMP 95.9–97.6; O2SAT 96–100
[~2016-09-27 09:09] MED LIST changes: +AMLO5 PO; +ATOR40TA16 PO; +BENA40TA PO; +CANA100T PO; +GLIM1TAB PO; +METF1000 PO; +METO25TA3 PO; -PRED20 PO; +SITA1TAB2 PO; +TIOT1AER2 INH; +TOVI4TAB PO; +TRAZ50TA12 PO; +[UNRECOGNIZED DRUG - CODE]
[2016-09-27] MEDS ORDERED: GLIM1TAB PO (09:26)
[2016-09-27] MEDS ORDERED: ALBUAER3 INH (09:26)
[2016-09-27] MEDS ORDERED: FLUT1INH INH (09:26)
[2016-09-27] MEDS ORDERED: ASPI81CH CHEW (09:26)
[2016-09-27] MEDS ORDERED: DONE5TAB7 PO (09:26)
[2016-09-27] MEDS ORDERED: SODIUM CHLORIDE 0.9% FLUSH 10 ML FLUSH IVF PRN (09:30)
--- NOTE | 2016-09-27 09:39 | PD ---
HPI Chief Complaint: Respiratory Symptoms Time Seen by Provider: 09:15 Travel History International Travel<30 days: No Contact w/Intl Traveler<30days: No Traveled to known affect area: No History of Present Illness HPI 81-year-old male presents with one-week history of left-sided chest pain and shortness of breath. He states he feels worse when he moves. He denies other modifying factors. He states it feels like a soreness. He states that it is moderate in severity. He denies specific modifying factors. He states he has no active chest pain currently. He states he took an aspirin today. 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 He denies other concurrent complaints. He denies any trauma. [facility] Past Medical History Narrative Medical By records Hx Anticoagulant Therapy: Yes (asa 81mg) AAA: Yes (1 MONTH AGO) Arthritis: No Asthma: Yes Atrial Fibrillation: Yes Autoimmune Disease: No Anxiety: Yes Depression: Yes Heart Rhythm Problems: Yes (afib ) Cancer: No Cardiovascular Problems: Yes High Cholesterol: Yes Chest Pain: No Cerebrovascular Accident: Yes Diabetes: Yes Patient Takes Glucophage: No Diminished Hearing: No Hypertension: Yes Implanted Vascular Access Dvce: No Musculoskeletal: No Respiratory: Yes (asthma) Migraines: No Sleep Apnea: No Past Surgical History Narrative Surgical By records Abdominal Surgery: Yes Cardiac Surgery: Yes ( aortic valve replacement, cardiac cath.) Ear Surgery: No Endocrine Surgery: No Genitourinary Surgery: No Oral Surgery: No Social History Alcohol Use: No Tobacco Use: Yes (PIPE 5 TIMES A DAY) Substance Use: No Allergies-Medications (Allergen,Severity, Reaction): Coded Allergies: No Known Allergies (Unverified , 09/27/16) Reported Meds & Prescriptions Reported Meds & Active Scripts Active Reported Breo Ellipta Inh (Fluticasone/Vilanterol) 100-25 Mcg/Act Inh 1 Puff INH DAILY Use daily at the same time. Proair Hfa 8.5 GM Inh (Albuterol Sulfate) 90 Mcg/Act Aer 1 Puff INH Q4H PRN 108 mcg/actuation Donepezil 5 Mg Tab 5 Mg PO HS Glimepiride 1 Mg Tab 1 Mg PO BID Take with breakfast or first main meal Aspirin 81 Mg Chew 81 Mg CHEW DAILY Spiriva Respimat Inh (Tiotropium Inh) 1.25 Mcg/Act Aero 2 Puff INH DAILY 1.25 mcg = 1 inhalation Ventavis Inh (Iloprost Inh) 10 Mcg/Ml Soln Metformin (Metformin HCl) 1,000 Mg Tab 1,000 Mg PO BIDPC With meals Norvasc (Amlodipine Besylate) 5 Mg Tab 5 Mg PO DAILY Atorvastatin (Atorvastatin Calcium) 40 Mg Tab 40 Mg PO HS Januvia (Sitagliptin Phosphate) 100 Mg Tab 100 Mg PO DAILY Metoprolol Tartrate 25 Mg Tab 25 Mg PO BID Trazodone (Trazodone HCl) 50 Mg Tab 50 Mg PO HS Toviaz ER (Fesoterodine Fumarate) 4 mg Aaron 4 Mg PO DAILY Benazepril (Benazepril HCl) 40 Mg Tab 20 Mg PO DAILY Invokana (Canagliflozin) 100 Mg Tab 100 Mg PO DAILY Take before 1st meal of day. Review of Systems Except as stated in HPI: all other systems reviewed are Neg Physical Exam Narrative GENERAL: Well-nourished, well-developed patient. SKIN: Warm and dry. Postsurgical scars noted to chest HEAD: Normocephalic and atraumatic. EYES: No injection or drainage. ENT: No nasal drainage noted. NECK: Supple, trachea midline. CARDIOVASCULAR: irregular rate and rhythm RESPIRATORY: Breath sounds equal bilaterally at apices. No accessory muscle use. GASTROINTESTINAL: Abdomen soft, non-tender, nondistended. NEUROLOGICAL: Awake and alert. Moves all extremities. Normal speech. Data Data Last Documented VS Vital Signs Date Time Temp Pulse Resp B/P Pulse Ox O2 Delivery O2 Flow Rate FiO2 09/27/16 12:17 80 20 138/77 97 09/27/16 09:12 97.6 Orders Electrocardiogram (09/27/16:25) B-Type Natriuretic Peptide (09/27/16:25) Ckmb (Isoenzyme) Profile (09/27/16:25) Complete Blood Count With Diff (09/27/16:) Comprehensive Metabolic Panel (09/27/16:) Magnesium (Mg) (09/27/16:25) Prothrombin Time / Inr (Pt) (09/27/16:25) Act Partial Throm Time (Ptt) (09/27/16:25) Troponin I (09/27/16:) Chest, Single Ap (7/11/17 09:25) Ecg Monitoring (09/27/16 09:25) Bilateral Bp Monitoring (09/27/16 09:25) Iv Access Insert/Monitor (09/27/16 09:25) Oximetry (09/27/16 09:25) Sodium Chloride 0.9% Flush (Ns Flush) (09/27/16 09:30) Ct Pulmonary Angiogram (09/27/16 09:25) Iohexol 350 Inj (Omnipaque 350 Inj) (09/27/16 10:34) Furosemide Inj (Lasix Inj) (09/27/16 12:30) Admit Order (Ed Use Only) (09/27/16 12:40) Labs Laboratory Tests Test 09/27/16 09:30 White Blood Count 7.4 TH/MM3 Red Blood Count 5.10 MIL/MM3 Hemoglobin 11.3 GM/DL Hematocrit 36.0 % Mean Corpuscular Volume 70.5 FL Mean Corpuscular Hemoglobin 22.1 PG Mean Corpuscular Hemoglobin 31.4 % Concent Red Cell Distribution Width 15.6 % Platelet Count 256 TH/MM3 Mean Platelet Volume 8.4 FL Neutrophils (%) (Auto) 71.8 % Lymphocytes (%) (Auto) 15.4 % Monocytes (%) (Auto) 7.2 % Eosinophils (%) (Auto) 4.2 % Basophils (%) (Auto) 1.4 % Neutrophils # (Auto) 5.4 TH/MM3 Lymphocytes # (Auto) 1.1 TH/MM3 Monocytes # (Auto) 0.5 TH/MM3 Eosinophils # (Auto) 0.3 TH/MM3 Basophils # (Auto) 0.1 TH/MM3 CBC Comment AUTO DIFF Differential Comment AUTO DIFF CONFIRMED Prothrombin Time 12.7 SEC Prothromb Time International 1.1 RATIO Ratio Activated Partial 28.0 SEC Thromboplast Time Sodium Level 144 MEQ/L Potassium Level 4.0 MEQ/L Chloride Level 109 MEQ/L Carbon Dioxide Level 26.7 MEQ/L Anion Gap 8 MEQ/L Blood Urea Nitrogen 22 MG/DL Creatinine 1.10 MG/DL Estimat Glomerular Filtration 64 ML/MIN Rate Random Glucose 95 MG/DL Calcium Level 8.5 MG/DL Magnesium Level 1.5 MG/DL Total Bilirubin 0.6 MG/DL Aspartate Amino Transf 27 U/L (AST/SGOT) Alanine Aminotransferase 22 U/L (ALT/SGPT) Alkaline Phosphatase 83 U/L Total Creatine Kinase 80 U/L Troponin I 0.03 NG/ML B-Type Natriuretic Peptide 485 PG/ML Total Protein 6.9 GM/DL Albumin 3.3 GM/DL MDM Medical Decision Making Medical Screen Exam Complete: Yes Emergency Medical Condition: Yes Medical Record Reviewed: Yes (past history confirm, recent hospitalization reviewed in April for remote hemorrhagic infarct) Interpretation(s) EKG is atrial flutter at 80 with right bundle branch block, no STEMI criteria, will repeat given underlying artifact Repeat EKG appears more regular but still with underlying artifact that limits interpretation CBC & BMP Diagram 09/27/16 09:30 Last 24 hours Impressions Chest X-Ray 09/27/16924 Signed Impressions: Service Date/Time: Tuesday, September 27, 2016 10:02 - CONCLUSION: 1. Cardiomegaly , bilateral effusions and interstitial prominence most consistent with congestive failure. Kelvin Mcleod MD CT Angiography 09/27/16924 Signed Impressions: Service Date/Time: Tuesday, September 27, 2016 10:16 - CONCLUSION: 1. No CT evidence for pulmonary artery embolism as questioned. 2. Moderate right and irmbz-ci-extcryuq left pleural effusions with associated compressive atelectasis in the lower lobes. 3. Small to moderate pericardial effusion with mild four-chamber cardiac enlargement. 4. 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 5. Incidental note of 5 mm nodule in the anterior left upper lobe. Followup examination may be performed in 6-12 months to document stability per 2017 Fleischner criteria as indicated. Chandana Aponte MD Differential Diagnosis [place], [place], bleed, effusion, pneumonia, pneumothorax Narrative Course Will check blood work, chest x-ray, CT chest and reevaluate ED workup shows CHF findings, Lasix ordered. Patient states he's been on a water pill before but he doesn't know when. He states he's not sure if he is been told he has heart failure. No echocardiogram on file. We'll admit to the hospital for further care Physician Communication Physician Communication dr tanner agrees to admit Diagnosis Primary Impression: CHF exacerbation Qualified Code: I50.9 - Acute on chronic congestive heart failure, unspecified congestive heart failure type Additional Impressions: Pleural effusion Chest pain Qualified Code: R07.9 - Chest pain, unspecified type Admitting Information Admitting Physician Requests: Observation Raysa Bauer MD Sep 27, 2016 09:39
[2016-09-27 09:40] LABS: AUTOMATED NEUTROPHIL # 5.4 TH/MM3 (1.8-7.7); BASOPHIL # 0.1 TH/MM3 (0-0.2); BASOPHIL % 1.4 % (0.0-2.0); EOSINOPHIL # 0.3 TH/MM3 (0-0.4); EOSINOPHIL % 4.2 % (0.0-4.0); LYMPH % 15.4 % (9.0-44.0); LYMPHOCYTE # 1.1 TH/MM3 (1.0-4.8); MEAN CELL VOLUME 70.5 FL (80.0-100.0); MEAN CORPUSCULAR HEMOGLOBIN 22.1 PG (27.0-34.0); MEAN CORPUSCULAR HGB CONC 31.4 % (32.0-36.0); MONO % 7.2 % (0.0-8.0); NEUT % 71.8 % (16.0-70.0); PLATELET COUNT 256 TH/MM3 (150-450); RED CELL DISTRIBUTION WIDTH 15.6 % (11.6-17.2); WHITE BLOOD COUNT 7.4 TH/MM3 (4.0-11.0)
[2016-09-27 09:41] LABS: HEMO FLAGS AUTO DIFF
[2016-09-27 09:52] LABS: INTERNATIONAL NORMALIZED RATIO 1.1 RATIO; PROTHROMBIN TIME - PATIENT 12.7 SEC (9.8-11.6)
[2016-09-27 09:53] LABS: BICARBONATE 26.7 MEQ/L (21.0-32.0); BLOOD UREA NITROGEN 22 MG/DL (7-18); MAGNESIUM 1.5 MG/DL (1.5-2.5)
[2016-09-27 09:54] LABS: ANION GAP 8 MEQ/L (5-15); CHLORIDE 109 MEQ/L (98-107); SODIUM (NA) 144 MEQ/L (136-145)
[2016-09-27 09:56] LABS: ALT (GPT) 22 U/L (12-78); AST (GOT) 27 U/L (15-37); GLOMERULAR FILTRATION RATE 64 ML/MIN (>89)
[2016-09-27 09:59] LABS: ALKALINE PHOSPHATASE 83 U/L (45-117); TOTAL BILIRUBIN ADULT 0.6 MG/DL (0.2-1.0)
[2016-09-27 10:01] LABS: CREATINE KINASE 80 U/L (39-308)
[2016-09-27 10:26] LABS: SCAN/DIFF AUTO DIFF CONFIRMED
--- NOTE | 2016-09-27 10:30 | RADRPT ---
EXAM DATE/TIME: 09/27/2016 10:02 [facility] COMPARISON: CHEST SINGLE AP, May 10, 2016, 22:48. INDICATIONS : Short of breath and chest pain for 1 week. MEDICAL HISTORY : Diabetes. SURGICAL HISTORY : Aortic valve replacement. Aneurysm repair. ENCOUNTER: Initial ACUITY: 1 week PAIN SCORE: 3/10 LOCATION: Bilateral chest FINDINGS: The heart is enlarged. The patient is post median sternotomy and valvular replacement. There are bila teral pleural effusions. There is diffuse interstitial prominence consistent with congestive failure. These changes are similar to previous dated 05/10/16. The osseous structures are grossly intact. CONCLUSION: 1. Cardiomegaly, bilateral effusions and interstitial prominence most consistent with congestive fail ure. Kelvin Mcleod MD on September 27, 2016 at 10:23 Board Certified Radiologist. This report was verified electronically.
[2016-09-27] MEDS ORDERED: IOHEXOL 350 MG/ML 10 ML VIAL (for RAD DIAG) IV ONE (10:34)
--- NOTE | 2016-09-27 10:51 | RADRPT ---
EXAM DATE/TIME: 09/27/2016 10:16 [facility] COMPARISON: No previous studies available for comparison. INDICATIONS : Short of breath. Evaluate for embolism. IV CONTRAST: 75 cc Omnipaque 350 (iohexol) IV RADIATION DOSE: 12.28 CTDIvol (mGy) MEDICAL HISTORY : Cerebrovascular disease. Aneurysm, abdominal. Hypertension.Anticoagulant therapy. SURGICAL HISTORY : Aortic valve repair. Thoracic aneurysm repair. ENCOUNTER: Initial ACUITY: 1 week PAIN SCALE: 0/10 LOCATION: chest TECHNIQUE: Volumetric scanning of the chest was performed using a pulmonary embolism protocol MIP images were re constructed. Using automated exposure control and adjustment of the mA and/or kV according to patien t size, radiation dose was kept as low as reasonably achievable to obtain optimal diagnostic quality images. DICOM format image data is available electronically for review and comparison. FINDINGS: PULMONARY ARTERIES: No filling defects are seen in the pulmonary arteries through the segmental level. LUNGS: Mild airspace consolidation in the lower lobes bilaterally likely due to compressive atelectasis. Sma ll 5 mm nodular opacity in the anterior left upper lobe. PLEURAE: Moderate right and small to moderate left pleural effusions which appear simple fluid in density. MEDIASTINUM: Descending thoracic aorta is mildly aneurysmal measuring up to 4.8 cm with moderate aortic valve calc ifications. There is a small to moderate pericardial effusion measuring up to 1.6 cm measuring simple fluid in density. There is mild four-chamber cardiac enlargement. MUSCULOSKELETAL: Within normal limits for patient age. MISCELLANEOUS: Visualized portions of the upper abdomen demonstrate a probable small left renal cyst. CONCLUSION: 1. No CT evidence for pulmonary artery embolism as questioned. 2. Moderate right and kedxa-yx-mtlopbyc left pleural effusions with associated compressive atelectasi s in the lower lobes. 3. Small to moderate pericardial effusion with mild four-chamber cardiac enlargement. 4. 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 5. Incidental note of 5 mm nodule in the anterior left upper lobe. Followup examination may be perfor med in 6-12 months to document stability per 2017 Fleischner criteria as indicated. Chandana Aponte MD on September 27, 2016 at 10:37 Board Certified Radiologist. This report was verified electronically.
[2016-09-27] MEDS ORDERED: FUROSEMIDE 40 MG/4 ML VIAL IV PUSH ONE (12:30)
[2016-09-27] MEDS ORDERED: GLUCAGON 1 MG/ML VIAL OTHER PRN (12:45)
[2016-09-27] MEDS ORDERED: ONDANSETRON HCL 4 MG/2 ML VIAL IVP PRN (12:45)
[2016-09-27] MEDS ORDERED: SODIUM CHLORIDE 0.9% FLUSH 10 ML FLUSH IV FLUSH PRN (12:45)
[2016-09-27] MEDS ORDERED: DEXTROSE 50% IN WATER 50 ML VIAL(D50) IV PRN (12:45)
[2016-09-27] MEDS ORDERED: SENNOSIDES 8.6 MG TAB PO PRN (13:00)
[2016-09-27] MEDS ORDERED: ACETAMINOPHEN 325 MG TAB PO PRN (13:00)
[2016-09-27] MEDS ORDERED: LACTULOSE SYRUP 20 GM/30 ML CUP PO PRN (13:00)
[2016-09-27] MEDS ORDERED: BISACODYL 10 MG SUPP RECTAL PRN (13:00)
[2016-09-27] MEDS ORDERED: MAGNESIUM HYDROXIDE SUSP 30 ML CUP PO PRN (13:00)
[2016-09-27] MEDS ORDERED: ALBUTEROL SULFATE 90 MCG/ACT HFA 18 GM INHALER INH PRN (14:00)
[2016-09-27] MEDS ORDERED: NITROGLYCERIN 0.4 MG SL 25 TABS/BTL SL PRN (14:00)
[2016-09-27] MEDS: INSULIN ASPART SUPPLEMENTAL SCALE SQ SCH ×2 (16:06→21:00)
[2016-09-27] MEDS: FUROSEMIDE 40 MG/4 ML VIAL IV PUSH SCH (18:00)
--- NOTE | 2016-09-27 18:38 | HHI.HP ---
[facility] Service [facility] Primary Care Physician Martha Islas M.D. Admission Diagnosis chf, pleural effusions Diagnoses: Chief Complaint: Shortness of breath, chest pain Travel History International Travel<30 Days: No Contact w/Intl Traveler <30 Da: No Traveled to Known Affected Are: No History of Present Illness Pleasant 81-year-old male with past medical history of atrial fibrillation, hypertension, hyperlipidemia, diabetes mellitus type 2, COPD, aortic stenosis, aortic aneurysm status post aortic valve replacement and aneurysm repair of [facility] by Dr. Irvin in March this year. Patient also follows with Dr. Garibay cardiology. The patient came for evaluation of shortness of breath left sinus chest pain. He says shortness of breath started a week ago getting worse for the past 2 days he was not able to sleep. He doesn't use oxygen at home. He has shortness of breath with exertion. He has associated chest pain at times however his main complaint is shortness of breath. He also feels very tired. He also notices his lower extremity are more swollen by usually. Shortness of breath is moderate in severity. He is using 2 pillows at home He is not taking any Lasix for any other diuretic. Never had congestive heart failure. He doesn't have any chest pain at this time. No nausea. He says he has decreased appetite and not able to eat lately. No vomiting, diarrhea or constipation. No problems with urination. Review of Systems Except as stated in HPI: all other systems reviewed are Neg Past Family Social History Past Medical History Atrial fibrillation, hypertension, hyperlipidemia, diabetes mellitus type 2, COPD, aortic stenosis, aortic aneurysm status post aortic valve replacement and aneurysm repair of [facility] by Dr. Irvin in March this year. Past Surgical History Aortic valve replacement and ascending aortic aneurysm repair TURP Otosclerosis bilaterally ear surgery Reported Medications Last Impressions Chest X-Ray 09/27/16 1087 Signed Impressions: Service Date/Time: Tuesday, September 27, 2016 10:02 - CONCLUSION: 1. Cardiomegaly , bilateral effusions and interstitial prominence most consistent with congestive failure. Kelvin Mcleod MD CT Angiography 09/27/16 0925 Signed Impressions: Service Date/Time: Tuesday, September 27, 2016 10:16 - CONCLUSION: 1. No CT evidence for pulmonary artery embolism as questioned. 2. Moderate right and [id number] left pleural effusions with associated compressive atelectasis in the lower lobes. 3. Small to moderate pericardial effusion with mild four-chamber cardiac enlargement. 4. 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 5. Incidental note of 5 mm nodule in the anterior left upper lobe. Followup examination may be performed in 6-12 months to document stability per 2017 Fleischner criteria as indicated. Chandana Aponte MD Allergies: Coded Allergies: No Known Allergies (Unverified , 09/27/16) Family History 2 sisters with cancers unspecified Mother had diabetes at the age of 81 Father asked away at the age of 84 had stroke Social History Tobacco use 20 cigarettes daily and 3 pipes daily quit one week ago Physical Exam Vital Signs Vital Signs Date Time Temp Pulse Resp B/P Pulse Ox O2 Delivery O2 Flow Rate FiO2 09/27/16 17:32 97.3 93 19 158/78 97 09/27/16 15:50 68 20 127/70 98 09/27/16 14:52 78 20 146/68 100 09/27/16 13:58 99 20 145/73 96 09/27/16 13:10 76 20 135/73 96 09/27/16 12:55 98 09/27/16 12:17 80 20 138/77 97 09/27/16 10:45 74 20 133/74 96 09/27/16 09:38 96 09/27/16 09:38 74 20 159/83 96 133/68 09/27/16 09:12 97.6 45 15 133/70 98 Physical Exam GENERAL: This is a very pleasant 81-year-old male, well-nourished, well- developed patient, in some distress due to shortness of breath and wheezing SKIN: No rashes, ecchymoses or lesions. Cool and dry. HEAD: Atraumatic. Normocephalic. No temporal or scalp tenderness. EYES: Pupils equal round and reactive. Extraocular motions intact. No scleral icterus. No injection or drainage. ENT: Nose without bleeding, purulent drainage or septal hematoma. Throat without erythema, tonsillar hypertrophy or exudate. Uvula midline. Airway patent. NECK: Trachea midline. No JVD or lymphadenopathy. Supple, nontender, no meningeal signs. CARDIOVASCULAR: Regular rate and rhythm without murmurs, gallops, or rubs. RESPIRATORY: Decreased breath sounds, scattered wheezing, crackles bibasilar. GASTROINTESTINAL: Abdomen soft, non-tender, nondistended. No hepato-splenomegaly , or palpable masses. No guarding. MUSCULOSKELETAL: Extremities without clubbing, cyanosis, or edema. No joint tenderness, effusion. 2+ bilateral lower extremity edema noted. No calf tenderness. Negative Homans sign bilaterally. NEUROLOGICAL: Awake and alert. Cranial nerves II through XII intact. Motor and sensory grossly within normal limits. Normal speech. Laboratory Laboratory Tests Test 09/27/16 09/27/16 09:30 13:00 White Blood Count 7.4 Red Blood Count 5.10 Hemoglobin 11.3 Hematocrit 36.0 Mean Corpuscular Volume 70.5 Mean Corpuscular Hemoglobin 22.1 Mean Corpuscular Hemoglobin 31.4 Concent Red Cell Distribution Width 15.6 Platelet Count 256 Mean Platelet Volume 8.4 Neutrophils (%) (Auto) 71.8 Lymphocytes (%) (Auto) 15.4 Monocytes (%) (Auto) 7.2 Eosinophils (%) (Auto) 4.2 Basophils (%) (Auto) 1.4 Neutrophils # (Auto) 5.4 Lymphocytes # (Auto) 1.1 Monocytes # (Auto) 0.5 Eosinophils # (Auto) 0.3 Basophils # (Auto) 0.1 CBC Comment AUTO DIFF Differential Comment AUTO DIFF CONFIRMED Prothrombin Time 12.7 Prothromb Time International 1.1 Ratio Activated Partial 28.0 Thromboplast Time Sodium Level 144 Potassium Level 4.0 Chloride Level 109 Carbon Dioxide Level 26.7 Anion Gap 8 Blood Urea Nitrogen 22 Creatinine 1.10 Estimat Glomerular Filtration 64 Rate Random Glucose 95 Calcium Level 8.5 Magnesium Level 1.5 Total Bilirubin 0.6 Aspartate Amino Transf 27 (AST/SGOT) Alanine Aminotransferase 22 (ALT/SGPT) Alkaline Phosphatase 83 Total Creatine Kinase 80 Troponin I 0.03 0.04 B-Type Natriuretic Peptide 485 Total Protein 6.9 Albumin 3.3 Result Diagram: 09/27/1692909/27/16929 Imaging Last Impressions Chest X-Ray 09/27/16924 Signed Impressions: Service Date/Time: Tuesday, September 27, 2016 10:02 - CONCLUSION: 1. Cardiomegaly , bilateral effusions and interstitial prominence most consistent with congestive failure. Kelvin Mcleod MD CT Angiography 09/27/16924 Signed Impressions: Service Date/Time: Tuesday, September 27, 2016 10:16 - CONCLUSION: 1. No CT evidence for pulmonary artery embolism as questioned. 2. Moderate right and [id number] left pleural effusions with associated compressive atelectasis in the lower lobes. 3. Small to moderate pericardial effusion with mild four-chamber cardiac enlargement. 4. 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 5. Incidental note of 5 mm nodule in the anterior left upper lobe. Followup examination may be performed in 6-12 months to document stability per 2017 Fleischner criteria as indicated. Chandana Aponte MD Assessment and Plan Assessment and Plan 81 yo Male with : CHF new onset with exacerbation. BNP 485 on admission Moderate right pleural effusion and small to moderate left pleural effusion Chest pain Moderate pericardial effusion Aortic valve calcification COPD with exacerbation Incidental 5 mm nodule in the anterior left upper lobe. Followup examination may be performed in 6-12 months to document stability per 2017 Fleischner criteria as indicated. Patient was notified to follow up as OP with repeat imaging. Received Lasix in the emergency room. Continue Lasix 40 mg IV twice a day. Monitor urine output. Monitor kidney function closely might deteriorate due to Lasix. Start duonebs scheduled and prn, start steropids IV taper as tolerated. Monitor VS. O2 supplement keep O2 sat > 92%. We'll do 2-D echo Troponin negative by 1. Trend troponin. Repeat EKG. Dr. Hartman cardiology covering for his cardiology Dr. Garibay requested to get in touch with his cardiothoracic surgeon. Dr. Irvin his cardiothoracic surgeon review CT of the patient today and recommends patient states in [place] with no acute changes, at baseline after surgery Dr rivin is patient's surgeon states that patient had aortic valve replacement and ascending thoracic aneurysm repair and CT findings are typical and not concerning and patient can stay in [place] and does not need for him to be involved in this hospitalization Atrial fibrillation, hypertension, hyperlipidemia, diabetes mellitus type 2, aortic stenosis, aortic aneurysm status post aortic valve replacement and aneurysm repair of [facility] by Dr. Irvin in March this year. Stable continue to monitor. Restart home meds. DVT ppx SCD/TEDs lovenox Discussed Condition With Patient, nurse, ED physician Rosana Javed MD Sep 27, 2016 18:38
[2016-09-27] MEDS ORDERED: RESP: ALBUTEROL 2.5 MG/IPRATROPIUM 0.5 MG NEB (PRN) NEB (18:45)
[2016-09-27] MEDS ORDERED: methylPREDNISolone SOD SUCC 125 MG/2 ML VIAL IV PUSH ONE (18:45)
--- NOTE | 2016-09-27 19:04 | EKG ---
Date Performed: 09/27/2016 Time Performed: 09:45:15 PTAGE: 81 years EKG: Sinus rhythm MARKED LEFT AXIS DEVIATION RIGHT BUNDLE BRANCH BLOCK MODERATE VOLTAGE CRITERIA FOR LVH, CONSIDER NOR MAL VARIANT 1st degree AV block No change since prior tracing. ABNORMAL ECG PREVIOUS TRACING : 05/10/2016 19.16 DOCTOR: Bill Roy Interpretating Date/Time 09/27/2016 19:02:34
[2016-09-27] MEDS: RESP: ALBUTEROL 2.5 MG/IPRATROPIUM 0.5 MG NEB (SCH) NEB (19:25)
[2016-09-27] MEDS ORDERED: WARFARIN SOD 5 MG TAB PO ONE (20:15)
[2016-09-27] MEDS: DONEPEZIL HCL 5 MG TAB PO SCH (20:57)
[2016-09-27] MEDS: ATORVASTATIN 40 MG TAB PO SCH (20:57)
[2016-09-27] MEDS: SODIUM CHLORIDE 0.9% FLUSH 10 ML FLUSH IV FLUSH SCH (20:57)
[2016-09-27] MEDS: traZODone HCL 50 MG TAB PO SCH (20:57)
[2016-09-27] MEDS: METOPROLOL TARTRATE 25 MG TAB PO SCH (20:57)
[2016-09-27] MEDS: DOCUSATE SODIUM 50 MG/SENNA 8.6 MG TAB PO SCH (20:57)
--- NOTE | 2016-09-27 21:14 | MB ---
cc: ISA GONZALEZ MD DATE OF CONSULTATION 09/27/16 1934 REASON FOR CONSULTATION Acute heart failure exacerbation. HISTORY OF PRESENT ILLNESS 81 year old male with past medical history significant for chronic atrial fibrillation, hypertension, hyperlipidemia, diabetes type 2, COPD, aortic stenosis status post aortic valve replacement and aneurysm repair that presented to the hospital with complaints of worsening shortness of breath for the last week. The patient reports that shortness of breath is exacerbated with exertion and its associated with tiredness and mild lower extremity edema. Early this year he got an aortic valve replacement and aneurysm repair was recently this in [facility] by Dr. Irvin. Today's initial evaluation reveals elevated BNP of 485, bilateral pleural effusions on chest x-ray and CT. Cardiology has been consulted for further management and evaluation. Since admission the patient has been started on IV Lasix with improvement of symptoms. REVIEW OF SYSTEMS Negative except for the ones mentioned in the HPI. PAST MEDICAL HISTORY 1. Atrial fibrillation, 2. Hypertension, 3. Hyperlipidemia, 4. Diabetes type 2, 5. COPD, 6. Aortic stenosis 7. Aortic aneurysm status post aortic valve replacement and repair. PAST SURGICAL HISTORY 1. Aortic valve replacement 2. Ascending aortic aneurysm repair, 3. TURP 4. Otosclerosis of bilateral ears ALLERGIES NO KNOWN DRUG ALLERGIES. FAMILY HISTORY Noncontributory. SOCIAL HISTORY He is a smoker and no illicit drug use. Social alcohol. CARDIAC HOME MEDICATIONS 1. Norvasc 5 mg p.o. daily. 2. Aspirin 81 mg p.o. daily. 3. Atorvastatin 40 mg p.o. daily. 4. Benazepril 40 mg p.o. daily 5. Metoprolol 25 mg p.o. b.i.d. PHYSICAL EXAMINATION VITAL SIGNS: Temperature 97.3, respiratory rate 19, heart rate 76, blood pressure 135/73, O2 sat 96% on room air. GENERAL: He is awake, alert and oriented x3 in no acute distress. NECK: No JVD, no carotid bruits. HEART: Irregularly irregularly, no murmurs, rubs or gallops appreciated. LUNGS: Bilateral rales at bases. ABDOMEN: Soft, nontender, nondistended. Positive bowel sounds. EXTREMITIES: No cyanosis, Pulses throughout and mild pedal edema. LABORATORY DATA CBC hemoglobin 11, hematocrit 36, platelet count 256, INR 1.1. Chemistries - sodium 144, potassium 4.0, BUN 22, creatinine 1.1. BNP 485, troponin 0.03 and 0.04, albumin 3.3. IMAGING STUDIES Chest x-ray - Cardiomegaly with bilateral effusions. Chest CT- No pulmonary emboli and there a moderate left pleural effusion as well as a moderate pericardial effusion. There is a note of a mild descending thoracic aortic aneurysm measuring 4.8 cm which according to reports is old and stable. CARDIOLOGY STUDIES EKG - atrial fibrillation with adequate ventricular response and nonspecific ST changes. ASSESSMENT AND PLAN 81 year old male with above history and findings admitted with acute on chronic heart failure exacerbation. He remains afebrile and hemodynamically stable responding to IV Lasix. Cardiac troponins are unremarkable so far. BNP elevated. No echocardiogram on system. He seems to be significant fluid overload. Regarding the atrial fibrillation, the rate is controlled. However, he is not on any chronic oral anticoagulation. His calculated CHADS2 score is > 2 for which chronic oral anticoagulation is recommended if there is no contraindication. Recommendations: 1. Continue IV diuresis with Lasix, 2. Strict input and outputs, 3. Daily weights, 4. Incentive spirometry 5. Low-salt diet. 6. 2-D echo 7. Cont home cardiac medications 8. Start Coumadin 9. Continue telemetry monitoring. 10. Encourage out of bed Thank you for the opportunity to take part in the care of this patient. We will be available on an as needed basis for any other questions or concerns. MD SOPHIE Caballero/SA /7:13 PM /8:54 PM JAYRO
[2016-09-27] MEDS: TEMAZEPAM 15 MG CAP PO PRN (21:20)
--- NOTE | 2016-09-27 21:32 | EKG ---
Date Performed: 09/27/2016 Time Performed: 18:44:48 PTAGE: 81 years EKG: ATRIAL FLUTTER/TACHYCARDIA WITH VARIABLE BLOCK RIGHT BUNDLE BRANCH BLOCK LEFT ANTERIOR FASC ICULAR BLOCK MODERATE VOLTAGE CRITERIA FOR LVH, CONSIDER NORMAL VARIANT ABNORMAL ECG PREVIOUS TRACING : 09/27/2016 15.32 Compared to prior tracing no significant change DOCTOR: Joao Ricci Interpretating Date/Time 09/27/2016 21:32:10
--- NOTE | 2016-09-27 21:57 | EKG ---
Date Performed: 09/27/2016 Time Performed: 15:32:53 PTAGE: 81 years EKG: ATRIAL FLUTTER/TACHYCARDIA RIGHT BUNDLE BRANCH BLOCK LEFT ANTERIOR FASCICULAR BLOCK MINIMAL VOLTAGE CRITERIA FOR LVH, CONSIDER NORMAL VARIANT ABNORMAL ECG PREVIOUS TRACING : 09/27/2016 09.45 Compared to prior tracing no significant change DOCTOR: Joao Ricci Interpretating Date/Time 09/27/2016 21:57:29
[2016-09-28] VITALS (9 sets, daily range): BP systolic 118–152; BP diastolic 73–96; PULSE 69–120; RESP 15–18; TEMP 95.5–98; O2SAT 92–98
[2016-09-28] MEDS: methylPREDNISolone SOD SUCC 40 MG/1 ML VIAL IV PUSH SCH ×4 (00:16→22:12)
[2016-09-28 06:39] LABS: AUTOMATED NEUTROPHIL # 3.6 TH/MM3 (1.8-7.7); BASOPHIL % 0.3 % (0.0-2.0); EOSINOPHIL % 0.2 % (0.0-4.0); HEMATOCRIT 37.2 % (39.0-51.0); LYMPH % 14.6 % (9.0-44.0); LYMPHOCYTE # 0.6 TH/MM3 (1.0-4.8); MEAN CELL VOLUME 70.4 FL (80.0-100.0); MEAN CORPUSCULAR HEMOGLOBIN 22.4 PG (27.0-34.0); MEAN CORPUSCULAR HGB CONC 31.9 % (32.0-36.0); MONO % 1.1 % (0.0-8.0); NEUT % 83.8 % (16.0-70.0); PLATELET COUNT 247 TH/MM3 (150-450); RED BLOOD COUNT 5.28 MIL/MM3 (4.50-5.90); RED CELL DISTRIBUTION WIDTH 15.5 % (11.6-17.2); WHITE BLOOD COUNT 4.2 TH/MM3 (4.0-11.0)
[2016-09-28 06:44] LABS: HEMO FLAGS AUTO DIFF
[2016-09-28 06:47] LABS: CHLORIDE 104 MEQ/L (98-107); POTASSIUM 3.7 MEQ/L (3.5-5.1); SODIUM (NA) 143 MEQ/L (136-145)
[2016-09-28 06:49] LABS: INTERNATIONAL NORMALIZED RATIO 1.2 RATIO; PROTHROMBIN TIME - PATIENT 12.8 SEC (9.8-11.6)
[2016-09-28 06:54] LABS: ANION GAP 10 MEQ/L (5-15); BICARBONATE 29.2 MEQ/L (21.0-32.0)
[2016-09-28 07:05] LABS: ALKALINE PHOSPHATASE 89 U/L (45-117); ALT (GPT) 22 U/L (12-78); AST (GOT) 19 U/L (15-37); BLOOD UREA NITROGEN 29 MG/DL (7-18); GLOMERULAR FILTRATION RATE 53 ML/MIN (>89); TOTAL BILIRUBIN ADULT 0.5 MG/DL (0.2-1.0)
[2016-09-28 07:14] LABS: OVALOCYTES 1+ (NORMAL); PLATELET ESTIMATE SMEAR NORMAL (NORMAL); PLATELET MORPHOLOGY NORMAL (NORMAL); SCAN/DIFF AUTO DIFF CONFIRMED
[2016-09-28] MEDS: RESP: ALBUTEROL 2.5 MG/IPRATROPIUM 0.5 MG NEB (SCH) NEB ×4 (07:33→20:39)
--- NOTE | 2016-09-28 08:19 | HHI.PR ---
Subjective Remarks In the chair, says she feels somehow improving, still with sob and feeling tired , however he does not require O2 supplement at this time. No chset pain .LE edema improved some. No cough. Objective Vitals Vital Signs Date Time Temp Pulse Resp B/P Pulse Ox O2 Delivery O2 Flow Rate FiO2 09/28/16 07:35 92 21 09/28/16 04:00 95.5 69 16 133/80 96 09/28/16 00:00 96.9 72 16 146/77 98 09/27/16 20:21 90 09/27/16 20:00 95.9 78 16 148/70 98 09/27/16 19:25 98 Nasal Cannula 3.00 09/27/16 17:32 97.3 93 19 158/78 97 09/27/16 15:50 68 20 127/70 98 09/27/16 14:52 78 20 146/68 100 09/27/16 13:58 99 20 145/73 96 09/27/16 13:10 76 20 135/73 96 09/27/16 12:55 98 09/27/16 12:17 80 20 138/77 97 09/27/16 10:45 74 20 133/74 96 09/27/16 09:38 96 09/27/16 09:38 74 20 159/83 96 133/68 09/27/16 09:12 97.6 45 15 133/70 98 I/O 09/27/16 09/27/16 09/27/16 09/28/16 09/28/16 09/28/16 07:00 15:00 23:00 07:00 15:00 23:00 Intake Total 240 ml 240 ml Output Total 200 ml 550 ml 300 ml Balance -200 ml -310 ml -60 ml Intake Oral 240 ml 240 ml Output Urine Total 200 ml 550 ml 300 ml # Voids 1 1 # Bowel Movements 0 0 Result Diagram: 09/28/1661409/28/16614 Imaging Last Impressions Chest X-Ray 09/27/16924 Signed Impressions: Service Date/Time: Tuesday, September 27, 2016 10:02 - CONCLUSION: 1. Cardiomegaly , bilateral effusions and interstitial prominence most consistent with congestive failure. Kelvin Mcleod MD CT Angiography 09/27/16924 Signed Impressions: Service Date/Time: Tuesday, September 27, 2016 10:16 - CONCLUSION: 1. No CT evidence for pulmonary artery embolism as questioned. 2. Moderate right and mqsch-[id number] left pleural effusions with associated compressive atelectasis in the lower lobes. 3. Small to moderate pericardial effusion with mild four-chamber cardiac enlargement. 4. 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 5. Incidental note of 5 mm nodule in the anterior left upper lobe. Followup examination may be performed in 6-12 months to document stability per 2017 Fleischner criteria as indicated. Chandana Aponte MD Objective Remarks GENERAL: This is a very pleasant 81-year-old male, well-nourished, well- developed patient, in some distress due to shortness of breath and wheezing CARDIOVASCULAR: Regular rate and rhythm without murmurs, gallops, or rubs. RESPIRATORY: Decreased breath sounds, scattered wheezing, crackles bibasilar. GASTROINTESTINAL: Abdomen soft, non-tender, nondistended. No hepato-splenomegaly , or palpable masses. No guarding. MUSCULOSKELETAL: Extremities without clubbing, cyanosis, or edema. No joint tenderness, effusion. 2+ bilateral lower extremity edema noted. No calf tenderness. Negative Homans sign bilaterally. NEUROLOGICAL: Awake and alert. Cranial nerves II through XII intact. Motor and sensory grossly within normal limits. Normal speech. A/P Assessment and Plan 81 yo Male with : CHF new onset with exacerbation. BNP 485 on admission Moderate right pleural effusion and small to moderate left pleural effusion Chest pain Moderate pericardial effusion Aortic valve calcification COPD with exacerbation Incidental 5 mm nodule in the anterior left upper lobe. Followup examination may be performed in 6-12 months to document stability per 2017 Fleischner criteria as indicated. Patient was notified to follow up as OP with repeat imaging. Received Lasix in the emergency room. Continue Lasix 40 mg IV twice a day. Monitor urine output. Monitor kidney function closely might deteriorate due to Lasix. Start duonebs scheduled and prn, start steropids IV taper as tolerated. Monitor VS. O2 supplement keep O2 sat > 92%. 2-D echo pending Troponin negative by 1. Trend troponin. Repeat EKG. Discussed with Dr. Hartman, recommends starting Coumadin. Start Coumadin, consult pharmacy for dosing. Monitor INR Dr. Hartman cardiology covering for his cardiology Dr. Garibay requested to get in touch with his cardiothoracic surgeon. Dr. Irvin his cardiothoracic surgeon review CT of the patient today and recommends patient states in [place] with no acute changes, at baseline after surgery Dr Ivrin is patient's surgeon states that patient had aortic valve replacement and ascending thoracic aneurysm repair and CT findings are typical and not concerning and patient can stay in [place] and does not need for him to be involved in this hospitalization Atrial fibrillation, hypertension, hyperlipidemia, diabetes mellitus type 2, aortic stenosis, aortic aneurysm status post aortic valve replacement and aneurysm repair of [facility] by Dr. Irvin in March this year. Stable continue to monitor. Restart home meds. DVT ppx SCD/TEDs lovenox Discussed Condition With Patient, nurse DC plan pending improvement poss DC tomorrow Rosana Javed MD Sep 28, 2016 08:18
[2016-09-28] MEDS: FLUTICASONE 100 MCG/VILANTEROL 25 MCG INHALER INH SCH (08:37)
[2016-09-28] MEDS: TIOTROPIUM BROMIDE 18 MCG INH INH SCH (08:37)
[2016-09-28] MEDS: FUROSEMIDE 40 MG/4 ML VIAL IV PUSH SCH ×2 (08:38→17:42)
[2016-09-28] MEDS: amLODIPine BESYLATE 5 MG TAB PO SCH (08:38)
[2016-09-28] MEDS: DOCUSATE SODIUM 50 MG/SENNA 8.6 MG TAB PO SCH ×2 (08:38→21:00)
[2016-09-28] MEDS: ASPIRIN 81 MG CHEW TAB CHEW SCH (08:38)
[2016-09-28] MEDS: LISINOPRIL 20 MG TAB PO SCH (08:38)
[2016-09-28] MEDS: METOPROLOL TARTRATE 25 MG TAB PO SCH ×2 (08:38→21:57)
[2016-09-28] MEDS: TOLTERODINE TARTRATE 4 MG CAP LA PO SCH (08:40)
[2016-09-28] MEDS: SODIUM CHLORIDE 0.9% FLUSH 10 ML FLUSH IV FLUSH SCH ×2 (08:41→21:58)
[2016-09-28] MEDS: INSULIN ASPART SUPPLEMENTAL SCALE SQ SCH ×4 (08:49→22:06)
[2016-09-28] MEDS ORDERED: WARFARIN SOD 5 MG TAB PO SCH (16:00)
--- NOTE | 2016-09-28 17:19 | EKG ---
Date Performed: 09/27/2016 Time Performed: 09:21:30 PTAGE: 81 years EKG: Sinus rhythm FIRST DEGREE AV BLOCK ATRIAL AND VENTRICULAR PREMATURE COMPLEXES MARKED LEFT AXIS DEVIATION RIGHT BU NDLE BRANCH BLOCK MODERATE VOLTAGE CRITERIA FOR LVH, CONSIDER NORMAL VARIANT ABNORMAL ECG INTERPRETAT ION BASED ON A DEFAULT AGE OF 40 YEARS Compared to the PREVIOUS TRACING A and V ectopy present DOCTOR: Joao Ricci Interpretating Date/Time 09/28/2016 17:17:34
[2016-09-28] MEDS: DONEPEZIL HCL 5 MG TAB PO SCH (21:56)
[2016-09-28] MEDS: traZODone HCL 50 MG TAB PO SCH (21:57)
[2016-09-28] MEDS: ATORVASTATIN 40 MG TAB PO SCH (21:57)
[2016-09-28] MEDS: TEMAZEPAM 15 MG CAP PO PRN (22:10)
[2016-09-29] VITALS: BP 102/65; PULSE 118; RESP 18; TEMP 96.3; O2SAT 93
[2016-09-29 04:00] VITALS: BP 134/90; PULSE 117; RESP 18; TEMP 96.8; O2SAT 90
[2016-09-29 06:15] LABS: INTERNATIONAL NORMALIZED RATIO 1.3 RATIO; PROTHROMBIN TIME - PATIENT 14.3 SEC (9.8-11.6)
[2016-09-29] MEDS: methylPREDNISolone SOD SUCC 40 MG/1 ML VIAL IV PUSH SCH (06:33)
[2016-09-29] MEDS: INSULIN ASPART SUPPLEMENTAL SCALE SQ SCH ×2 (06:42→12:35)
[2016-09-29] MEDS: RESP: ALBUTEROL 2.5 MG/IPRATROPIUM 0.5 MG NEB (SCH) NEB (08:08)
[2016-09-29 08:10] VITALS: O2SAT 92
[2016-09-29] MEDS: ASPIRIN 81 MG CHEW TAB CHEW SCH (09:30)
[2016-09-29] MEDS: amLODIPine BESYLATE 5 MG TAB PO SCH (09:30)
[2016-09-29] MEDS: LISINOPRIL 20 MG TAB PO SCH (09:30)
[2016-09-29] MEDS: DOCUSATE SODIUM 50 MG/SENNA 8.6 MG TAB PO SCH (09:30)
[2016-09-29] MEDS: TOLTERODINE TARTRATE 4 MG CAP LA PO SCH (09:30)
[2016-09-29] MEDS: METOPROLOL TARTRATE 25 MG TAB PO SCH (09:30)
[2016-09-29] MEDS: SODIUM CHLORIDE 0.9% FLUSH 10 ML FLUSH IV FLUSH SCH (09:31)
[2016-09-29] MEDS: TIOTROPIUM BROMIDE 18 MCG INH INH SCH (09:31)
[2016-09-29] MEDS: FUROSEMIDE 40 MG/4 ML VIAL IV PUSH SCH (09:31)
[2016-09-29] MEDS: FLUTICASONE 100 MCG/VILANTEROL 25 MCG INHALER INH SCH (09:32)
--- NOTE | 2016-09-29 11:47 | HHI.DS ---
Discharge Summary Admission Date Sep 27, 2016 at 12:41 Discharge Date: Sep 29, 2016 Admitting Diagnosis chf, pleural effusions (1) Pleural effusion ICD Code: J90 Diagnosis: Principal (2) CHF exacerbation ICD Code: I50.9 Diagnosis: Principal (3) DM (diabetes mellitus) ICD Code: E11.9 Diagnosis: Secondary (4) HTN (hypertension) ICD Code: I10 Diagnosis: Secondary Procedures none Brief History - From Admission Pleasant 81-year-old male with past medical history of atrial fibrillation, hypertension, hyperlipidemia, diabetes mellitus type 2, COPD, aortic stenosis, aortic aneurysm status post aortic valve replacement and aneurysm repair of [facility] by Dr. Irvin in March this year. Patient also follows with Dr. Garibay cardiology. The patient came for evaluation of shortness of breath left sinus chest pain. He says shortness of breath started a week ago getting worse for the past 2 days he was not able to sleep. He doesn't use oxygen at home. He has shortness of breath with exertion. He has associated chest pain at times however his main complaint is shortness of breath. He also feels very tired. He also notices his lower extremity are more swollen by usually. Shortness of breath is moderate in severity. He is using 2 pillows at home He is not taking any Lasix for any other diuretic. Never had congestive heart failure. He doesn't have any chest pain at this time. No nausea. He says he has decreased appetite and not able to eat lately. No vomiting, diarrhea or constipation. No problems with urination. CBC/BMP: 09/28/16 0615 09/28/16 0615 Significant Findings Laboratory Tests Test 09/27/16 09/28/16 09/29/16 09:30 06:15 05:03 Hemoglobin 11.3 GM/DL 11.9 GM/DL (13.0-17.0) (13.0-17.0) Hematocrit 36.0 % 37.2 % (39.0-51.0) (39.0-51.0) Mean Corpuscular Volume 70.5 FL 70.4 FL (80.0-100.0) (80.0-100.0) Mean Corpuscular Hemoglobin 22.1 PG 22.4 PG (27.0-34.0) (27.0-34.0) Mean Corpuscular Hemoglobin 31.4 % 31.9 % Concent (32.0-36.0) (32.0-36.0) Neutrophils (%) (Auto) 71.8 % 83.8 % (16.0-70.0) (16.0-70.0) Eosinophils (%) (Auto) 4.2 % (0.0-4.0) Prothrombin Time 12.7 SEC 12.8 SEC 14.3 SEC (9.8-11.6) (9.8-11.6) (9.8-11.6) Chloride Level 109 MEQ/L (98-107) Blood Urea Nitrogen 22 MG/DL (7-18) 29 MG/DL (7-18) Estimat Glomerular Filtration 64 ML/MIN (>89) 53 ML/MIN (>89) Rate B-Type Natriuretic Peptide 485 PG/ML (0-100) Albumin 3.3 GM/DL (3.4-5.0) Lymphocytes # (Auto) 0.6 TH/MM3 (1.0-4.8) Ovalocytes 1+ (NORMAL) Random Glucose 239 MG/DL (74-106) Imaging Last Impressions Chest X-Ray 09/27/16924 Signed Impressions: Service Date/Time: Tuesday, September 27, 2016 10:02 - CONCLUSION: 1. Cardiomegaly , bilateral effusions and interstitial prominence most consistent with congestive failure. Kelvin Mcleod MD CT Angiography 09/27/16924 Signed Impressions: Service Date/Time: Tuesday, September 27, 2016 10:16 - CONCLUSION: 1. No CT evidence for pulmonary artery embolism as questioned. 2. Moderate right and [id number] left pleural effusions with associated compressive atelectasis in the lower lobes. 3. Small to moderate pericardial effusion with mild four-chamber cardiac enlargement. 4. 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 5. Incidental note of 5 mm nodule in the anterior left upper lobe. Followup examination may be performed in 6-12 months to document stability per 2017 Fleischner criteria as indicated. Chandana Aponte MD PE at Discharge GENERAL: This is a very pleasant 81-year-old male, well-nourished, well- developed patient, in some distress due to shortness of breath and wheezing CARDIOVASCULAR: Regular rate and rhythm without murmurs, gallops, or rubs. RESPIRATORY: Decreased breath sounds, scattered wheezing, crackles bibasilar. GASTROINTESTINAL: Abdomen soft, non-tender, nondistended. No hepato-splenomegaly , or palpable masses. No guarding. MUSCULOSKELETAL: Extremities without clubbing, cyanosis, or edema. No joint tenderness, effusion. 2+ bilateral lower extremity edema noted. No calf tenderness. Negative Homans sign bilaterally. NEUROLOGICAL: Awake and alert. Cranial nerves II through XII intact. Motor and sensory grossly within normal limits. Normal speech. Pt update on day of discharge The patient is improved significantly. He says he wants to go home. He was walking very well with physical therapy today. He is not short of breath he doesn't have any chest pain. Lower extremity edema improved significantly. Denies fever or chills. No cough. No wheezing. Hospital Course 81 yo Male with : CHF new onset with exacerbation. BNP 485 on admission Moderate right pleural effusion and small to moderate left pleural effusion Chest pain Moderate pericardial effusion Aortic valve calcification COPD with exacerbation Incidental 5 mm nodule in the anterior left upper lobe. Followup examination may be performed in 6-12 months to document stability per 2017 Fleischner criteria as indicated. Patient was notified to follow up as OP with repeat imaging. Received Lasix in the emergency room. Continue Lasix 40 mg IV twice a day. Monitor urine output. Monitor kidney function closely might deteriorate due to Lasix. Continue lasix 40 mg po daily at discharge. To follow up as OP with PCP and cardiology. Also he will have nurses [facility] to check INR. To coordinate with PCP and cardiology as OP regarding coumadin. Patient improved significantly he wants to go home. He will have 2D ECHO done as OP, says he had a recent EchO at [facility]. Was treated with duonebs scheduled and prn, start steropids IV taper as tolerated. Give PO prednidone at discharge. Monitor VS. O2 supplement keep O2 sat > 92%. 2-D echo to have a s OP. Troponin negative by [address] Hartman, recommends starting Coumadin. Start Coumadin, consult pharmacy for dosing. Monitor INR. To have nurses folloeing as OP regarding INR and to coordinate with PC[p /cardiology regarding coumadin management Dr. Hartman cardiology covering for his cardiology Dr. Garibay requested to get in touch with his cardiothoracic surgeon. Dr. Irvin his cardiothoracic surgeon review CT of the patient today and recommends patient states in [place] as CT with no acute changes, at baseline after surgery Dr Irvin is patient's surgeon states that patient had aortic valve replacement and ascending thoracic aneurysm repair and CT findings are typical and not concerning and patient can stay in [place] and does not need for him to be involved in this hospitalization Atrial fibrillation, hypertension, hyperlipidemia, diabetes mellitus type 2, aortic stenosis, aortic aneurysm status post aortic valve replacement and aneurysm repair of [facility] by Dr. Irvin in March this year. Stable continue to monitor. Restart home meds. Patient improved significantly, seen by PT recommends nursing visit at home. he did very well walking with PT. Patient was discharged instable condition . To follow up as OP with PCP and consultants. Pt Condition on Discharge: Stable Discharge Disposition: Disch w/ Home Health Serv Discharge Time: > 30 minutes Discharge Instructions DIET: Follow Instructions for: Heart Healthy Diet, Diabetic Diet, Coumadin ( Warfarin) Diet Activities you can perform: Regular-No Restrictions Follow up Referrals: Cardiology - 3-5 Days with Crow Guevara MD PCP Follow-up - 3-5 Days SNF/SUNG/ with [facility] Home New Orders: 2D ECHO - Next Day PT/INR - Next Day @ [facility] New Medications: Furosemide (Furosemide) 40 Mg Tab 40 MG PO DAILY CHF #30 Ref 0 TAB Prednisone (Prednisone) 20 Mg Tab 40 MG PO DAILY Take 40 mg (2 tablets) daily for 5 days wheezing /sob #3 Ref 0 TAB Temazepam (Restoril) 15 Mg Cap 15 MG PO HS PRN INSOMNIA #30 CAP Warfarin (Coumadin) 5 Mg Tab 5 MG PO DAILY@1600 Blood Clot Prevention #30 TAB Continued Medications: Albuterol 8.5 GM Inh (Proair Hfa 8.5 GM Inh) 90 Mcg/Act Aer 1 PUFF INH Q4H 108 mcg/actuation PRN SHORTNESS OF BREATH #1 Ref 0 INHALER Amlodipine (Norvasc) 5 Mg Tab 5 MG PO DAILY Blood Pressure Management #30 Ref 0 TAB Aspirin (Aspirin) 81 Mg Chew 81 MG CHEW DAILY Ref 0 TAB Atorvastatin (Atorvastatin) 40 Mg Tab 40 MG PO HS Cholesterol Management #30 Ref 0 TAB Benazepril (Benazepril) 40 Mg Tab 20 MG PO DAILY Blood Pressure Management #30 Ref 0 TAB Canagliflozin (Invokana) 100 Mg Tab 100 MG PO DAILY Take before 1st meal of day. Blood Sugar Management #30 Ref 0 TAB Donepezil (Donepezil) 5 Mg Tab 5 MG PO HS Dementia #30 Ref 0 TAB Fesoterodine ER (Toviaz ER) 4 mg Aaron 4 MG PO DAILY Overactive bladder #30 Ref 0 TAB Fluticasone-Vilanterol Inh (Breo Ellipta Inh) 100-25 Mcg/Act Inh 1 PUFF INH DAILY Use daily at the same time. #1 Ref 0 INHALER Glimepiride (Glimepiride) 1 Mg Tab 1 MG PO BID Take with breakfast or first main meal Blood Sugar Management #30 Ref 0 TAB Iloprost Inh (Ventavis Inh) 10 Mcg/Ml Soln Metformin (Metformin) 1,000 Mg Tab 1000 MG PO BIDPC With meals Blood Sugar Management #60 Ref 0 TAB Metoprolol Tartrate (Metoprolol Tartrate) 25 Mg Tab 25 MG PO BID #60 Ref 0 TAB Sitagliptin (Januvia) 100 Mg Tab 100 MG PO DAILY Blood Sugar Management #30 Ref 0 TAB Tiotropium Inh (Spiriva Respimat Inh) 1.25 Mcg/Act Aero 2 PUFF INH DAILY 1.25 mcg = 1 inhalation Asthma Management #1 Ref 0 INHALER Trazodone (Trazodone) 50 Mg Tab 50 MG PO HS Control Depression #30 Ref 0 TAB Rosana Javed MD Sep 29, 2016 11:47
--- NOTE | 2016-09-29 11:48 | HHI.FF ---
Face to Face Verification Diagnosis: (1) Hemorrhagic stroke (2) DM (diabetes mellitus) (3) Pleural effusion (4) CHF exacerbation (5) Chest pain Physical Therapy Order: Evaluate and Treat Home Health Nursing Order: Medical education Signs/symptoms of disease process Diabetic education CHF education Medication education-adverse effect Nursing assessment with vital signs Home Health Aide Instructions: Check INR every other day and coordinate with Dr Hartman cardiology and his PCP regarding managing coumadin I have seen patient David Oneill on 09/29/16. My clinical findings support the need for the requested home health care services because: Ltd mobility - disease progression Patient has SOB I certify that my clinical findings support that this patient is homebound because: Post-op weakness Rosana aJved MD Sep 29, 2016 11:48
[2016-09-29] MEDS ORDERED: FURO40TA PO (11:52)
[2016-09-29] MEDS ORDERED: PRED20 PO (11:52)
[2016-09-29] MEDS ORDERED: COUM5TAB PO (12:17)
[2016-09-29] MEDS ORDERED: REST15CA PO (13:31)
[2016-09-29] MEDS ORDERED: methylPREDNISolone SOD SUCC 40 MG/1 ML VIAL IV PUSH SCH (21:00)
== END 2016-09-29 13:39 | disposition home health service (06) ==
LOC: PHED 09:09 → PHEDA 12:41 → PH3A 16:18
PROVIDERS: ADMIT Hospitalist; ATTEND Hospitalist
DX: I11.0 Hypertensive heart disease with heart failure (principal); I50.9 Heart failure, unspecified; J44.1 Chronic obstructive pulmonary disease with (acute) exacerbation; I48.91 Unspecified atrial fibrillation; Z79.01 Long term (current) use of anticoagulants; F41.9 Anxiety disorder, unspecified; J90 Pleural effusion, not elsewhere classified; R91.1 Solitary pulmonary nodule; F32.9 Major depressive disorder, single episode, unspecified; E11.9 Type 2 diabetes mellitus without complications; E78.5 Hyperlipidemia, unspecified; F17.290 Nicotine dependence, other tobacco product, uncomplicated; Z86.73 Personal history of transient ischemic attack (TIA), and cerebral infarction without residual deficits; Z95.2 Presence of prosthetic heart valve; Z79.899 Other long term (current) drug therapy; Z79.82 Long term (current) use of aspirin; Z79.84 Long term (current) use of oral hypoglycemic drugs
CPT/HCPCS: 71010; 71275; 80053; 82550; 82948; 83735; 83880; 84484; 85025; 85610; 85730; 93005; 94640; 94664; 96374; 97110; 97116; 97162; 99285; G0378; G8987; G8988; J1815; J1940; J2920; J2930; Q9967

== ENCOUNTER 2016-10-01 20:49 | Emergency (ER) | payer OTHER ==
[~2016-10-01] VITALS: Ht 167.6 cm; Wt 67.0 kg
[~2016-10-01 20:49] MED LIST changes: +ALBUAER3 INH; +ASPI81CH CHEW; -ASTHMA MED; -B/P MED; +COUM5TAB PO; +DONE5TAB7 PO; +FLUT1INH INH; +FURO40TA PO; +PRED20 PO; +REST15CA PO; -[UNRECOGNIZED DRUG - OTHER]; -[UNRECOGNIZED DRUG - REMARK]
[2016-10-01 20:56] VITALS: BP 133/90; PULSE 120; RESP 20; TEMP 98.1; O2SAT 98
[2016-10-01 21:00] VITALS: BP 146/88; PULSE 116; RESP 18; O2SAT 98
[2016-10-01] MEDS ORDERED: SODIUM CHLORIDE 0.9% FLUSH 10 ML FLUSH IVF PRN (21:15)
[2016-10-01] MEDS ORDERED: INSULIN HUMAN REGULAR 1,000 UNITS/10 ML VIAL IV PUSH ONE ×2 (21:15→22:15)
--- NOTE | 2016-10-01 21:18 | PD ---
HPI Chief Complaint: Diabetic Time Seen by Provider: 21:07 Travel History International Travel<30 days: No Contact w/Intl Traveler<30days: No Traveled to known affect area: No History of Present Illness HPI This is an 81-year-old male who presents to the emergency department with high blood sugars. He was discharged from the hospital yesterday. He had been admitted in the setting of congestive heart failure exacerbation with bilateral pleural effusions. He also had an exacerbation of COPD. He was discharged on prednisone. Today his blood sugars have been as high as 500. His home health care gave him an insulin injection and his son gave him another insulin injection but his blood sugar was still 500 so he came to the emergency department. He says he has felt thirsty mostly in the morning, , constant, moderate severity. He otherwise has been feeling well following discharge. PFSH Past Medical History Hx Anticoagulant Therapy: Yes (COUMADIN) AAA: Yes (1 MONTH AGO) Arthritis: No Asthma: Yes Atrial Fibrillation: Yes Autoimmune Disease: No Anxiety: Yes Depression: Yes Heart Rhythm Problems: Yes (afib ) Cancer: No Cardiovascular Problems: Yes High Cholesterol: Yes Chest Pain: No Cerebrovascular Accident: Yes Diabetes: Yes Diminished Hearing: No Hypertension: Yes Implanted Vascular Access Dvce: No Musculoskeletal: No Reproductive: No Respiratory: Yes (asthma) Migraines: No Sleep Apnea: No Past Surgical History Abdominal Surgery: Yes Cardiac Surgery: Yes ( aortic valve replacement, cardiac cath.) Ear Surgery: No Endocrine Surgery: No Genitourinary Surgery: No Oral Surgery: No Social History Alcohol Use: No Tobacco Use: Yes (PIPE 5 TIMES A DAY) Substance Use: No Allergies-Medications (Allergen,Severity, Reaction): Coded Allergies: No Known Allergies (Unverified , 10/01/16) Reported Meds & Prescriptions Reported Meds & Active Scripts Active Restoril (Temazepam) 15 Mg Cap 15 Mg PO HS PRN Coumadin (Warfarin) 5 Mg Tab 5 Mg PO DAILY@1600 Furosemide 40 Mg Tab 40 Mg PO DAILY Prednisone 20 Mg Tab 40 Mg PO DAILY Take 40 mg (2 tablets) daily for 5 days Reported [insulin] 10 Unit SQ Breo Ellipta Inh (Fluticasone/Vilanterol) 100-25 Mcg/Act Inh 1 Puff INH DAILY Use daily at the same time. Proair Hfa 8.5 GM Inh (Albuterol Sulfate) 90 Mcg/Act Aer 1 Puff INH Q4H PRN 108 mcg/actuation Donepezil 5 Mg Tab 5 Mg PO HS Glimepiride 1 Mg Tab 1 Mg PO BID Take with breakfast or first main meal Aspirin 81 Mg Chew 81 Mg CHEW DAILY Spiriva Respimat Inh (Tiotropium Inh) 1.25 Mcg/Act Aero 2 Puff INH DAILY 1.25 mcg = 1 inhalation Ventavis Inh (Iloprost Inh) 10 Mcg/Ml Soln Metformin (Metformin HCl) 1,000 Mg Tab 1,000 Mg PO BIDPC With meals Norvasc (Amlodipine Besylate) 5 Mg Tab 5 Mg PO DAILY Atorvastatin (Atorvastatin Calcium) 40 Mg Tab 40 Mg PO HS Januvia (Sitagliptin Phosphate) 100 Mg Tab 100 Mg PO DAILY Metoprolol Tartrate 25 Mg Tab 25 Mg PO BID Trazodone (Trazodone HCl) 50 Mg Tab 50 Mg PO HS Toviaz ER (Fesoterodine Fumarate) 4 mg Aaron 4 Mg PO DAILY Benazepril (Benazepril HCl) 40 Mg Tab 20 Mg PO DAILY Invokana (Canagliflozin) 100 Mg Tab 100 Mg PO DAILY Take before 1st meal of day. Review of Systems Except as stated in HPI: all other systems reviewed are Neg Physical Exam Narrative GENERAL: Frail elderly male in no acute distress SKIN: Focused skin assessment warm and dry. HEAD: Atraumatic. Normocephalic. EYES: Pupils equal and round. No injection or drainage. ENT: Moist mucous membranes NECK: Trachea midline. CARDIOVASCULAR: 1+ bilateral pitting edema in the bilateral lower extremities. Regular rate and rhythm. 3/6 systolic murmur appreciated over the left sternal border. RESPIRATORY: Rales in the bilateral lung bases. No tachypnea. GASTROINTESTINAL: Abdomen soft, non-tender, nondistended. MUSCULOSKELETAL: No obvious deformities. NEUROLOGICAL: Awake and alert. No obvious cranial nerve deficits. Moving all extremities. PSYCHIATRIC: Appropriate mood and affect; insight and judgment normal. Data Data Last Documented VS Vital Signs Date Time Temp Pulse Resp B/P Pulse Ox O2 Delivery O2 Flow Rate FiO2 10/01/16 23:08 107 18 120/83 95 Room Air 10/01/16 20:56 98.1 Orders Basic Metabolic Panel (Bmp) (10/01/16 21:14) Complete Blood Count With Diff (10/01/16 21:14) Ecg Monitoring (10/01/16 21:14) Iv Access Insert/Monitor (10/01/16 21:14) Oximetry (10/01/16 21:14) Oxygen Administration (10/01/16 21:14) Sodium Chloride 0.9% Flush (Ns Flush) (10/01/16 21:15) Insulin Human Regular Inj (Novolin R Inj (10/01/16 21:15) Insulin Human Regular Inj (Novolin R Inj (10/01/16 22:15) Sodium Chlorid 0.9% 500 Ml Inj (Ns 500 M (10/01/16 23:00) Labs Laboratory Tests Test 10/01/16 21:25 White Blood Count 8.0 TH/MM3 Red Blood Count 4.77 MIL/MM3 Hemoglobin 10.6 GM/DL Hematocrit 34.1 % Mean Corpuscular Volume 71.5 FL Mean Corpuscular Hemoglobin 22.2 PG Mean Corpuscular Hemoglobin 31.0 % Concent Red Cell Distribution Width 15.8 % Platelet Count 243 TH/MM3 Mean Platelet Volume 8.4 FL Neutrophils (%) (Auto) 81.2 % Lymphocytes (%) (Auto) 8.5 % Monocytes (%) (Auto) 8.4 % Eosinophils (%) (Auto) 0.9 % Basophils (%) (Auto) 1.0 % Neutrophils # (Auto) 6.4 TH/MM3 Lymphocytes # (Auto) 0.7 TH/MM3 Monocytes # (Auto) 0.7 TH/MM3 Eosinophils # (Auto) 0.1 TH/MM3 Basophils # (Auto) 0.1 TH/MM3 CBC Comment AUTO DIFF Differential Comment AUTO DIFF CONFIRMED Platelet Estimate NORMAL Platelet Morphology Comment NORMAL Ovalocytes 1+ Sodium Level 139 MEQ/L Potassium Level 4.3 MEQ/L Chloride Level 100 MEQ/L Carbon Dioxide Level 30.8 MEQ/L Anion Gap 8 MEQ/L Blood Urea Nitrogen 45 MG/DL Creatinine 1.70 MG/DL Estimat Glomerular Filtration 39 ML/MIN Rate Random Glucose 413 MG/DL Calcium Level 8.6 MG/DL MDM Medical Decision Making Medical Screen Exam Complete: Yes Emergency Medical Condition: Yes Interpretation(s) afebrile, tachycardic, normotensive mild anemia renal insufficiency worse than discharge hyperglycemia Differential Diagnosis Hyperglycemia, dehydration, medication side effect Narrative Course This is an 81-year-old male who presents to the emergency department with hyperglycemia after being hospitalized and discharged yesterday in the setting of a CHF exacerbation. He was placed on a monitor and an IV was established. Labs demonstrate renal insufficiency and a glucose of 413. He was given 10 units of IV insulin and then additional 4 units. He also was given a 500 cc bolus as I suspect he is lost some fluid in the setting of his hyperglycemia and he appears volume down on exam. I suspect his hyperglycemia is due to prednisone use. I counseled him to discontinue his prednisone as it seems like his symptoms and his hospitalization were more attributed to his congestive heart failure and he is not wheezing currently. Diagnosis Primary Impression: Steroid-induced hyperglycemia Patient Instructions: General Instructions Additional Instructions: Discontinue your prednisone. If you develop severe chest pain, shortness of breath, sweating, lightheadedness , dizziness or difficulty breathing return to the emergency department immediately. Followup with your primary care physician in 2-3 days if your symptoms are not resolved. Med/Other Pt SpecificInfo: Med Stopped Disposition: 01 DISCHARGE HOME Condition: Stable Shanna Kinney MD Oct 01, 2016 21:18
[2016-10-01 21:33] LABS: AUTOMATED NEUTROPHIL # 6.4 TH/MM3 (1.8-7.7); BASOPHIL # 0.1 TH/MM3 (0-0.2); EOSINOPHIL # 0.1 TH/MM3 (0-0.4); EOSINOPHIL % 0.9 % (0.0-4.0); HEMATOCRIT 34.1 % (39.0-51.0); LYMPH % 8.5 % (9.0-44.0); LYMPHOCYTE # 0.7 TH/MM3 (1.0-4.8); MEAN CELL VOLUME 71.5 FL (80.0-100.0); MEAN CORPUSCULAR HEMOGLOBIN 22.2 PG (27.0-34.0); MONO % 8.4 % (0.0-8.0); NEUT % 81.2 % (16.0-70.0); PLATELET COUNT 243 TH/MM3 (150-450); RED BLOOD COUNT 4.77 MIL/MM3 (4.50-5.90); RED CELL DISTRIBUTION WIDTH 15.8 % (11.6-17.2)
[2016-10-01] MEDS ORDERED: insulin SQ (21:38)
[2016-10-01 21:42] LABS: HEMO FLAGS AUTO DIFF
[2016-10-01 21:54] LABS: POTASSIUM 4.3 MEQ/L (3.5-5.1)
[2016-10-01 22:03] LABS: OVALOCYTES 1+ (NORMAL); PLATELET ESTIMATE SMEAR NORMAL (NORMAL)
[2016-10-01 22:04] LABS: PLATELET MORPHOLOGY NORMAL (NORMAL); SCAN/DIFF AUTO DIFF CONFIRMED
[2016-10-01 22:06] VITALS: BP 125/84; PULSE 108; RESP 17; TEMP 98.2; O2SAT 97
[2016-10-01 22:42] LABS: BICARBONATE 30.8 MEQ/L (21.0-32.0)
[2016-10-01] MEDS ORDERED: SODIUM CHLORID 0.9% 500 ML INJ 500 ML IV ONE (23:00)
[2016-10-01 23:08] VITALS: BP 120/83; PULSE 107; RESP 18; O2SAT 95
[2016-10-01 23:41] VITALS: PULSE 98
== END 2016-10-01 23:58 | disposition home or self-care (01) ==
LOC: PHED 20:49
DX: E09.65 Drug or chemical induced diabetes mellitus with hyperglycemia (principal); T38.0X5A Adverse effect of glucocorticoids and synthetic analogues, initial encounter; Y92.239 Unspecified place in hospital as the place of occurrence of the external cause; Z79.4 Long term (current) use of insulin
CPT/HCPCS: 80048; 85025; 96374; 96376; 99284; J1815; J7040

== ENCOUNTER 2016-12-01 10:31 | Emergency (ER) | payer OTHER ==
[~2016-12-01] VITALS: Ht 172.7 cm; Wt 88.3 kg
[~2016-12-01 10:31] MED LIST changes: +insulin SQ
[2016-12-01 10:40] VITALS: BP 122/76; PULSE 102; RESP 20; TEMP 98; O2SAT 96
[2016-12-01] MEDS: RESP: ALBUTEROL 2.5 MG/3 ML NEB (SCH) INH ×2 (10:59→11:00)
[2016-12-01] MEDS ORDERED: SODIUM CHLORIDE 0.9% FLUSH 10 ML FLUSH IVF PRN (11:00)
[2016-12-01] MEDS ORDERED: methylPREDNISolone SOD SUCC 125 MG/2 ML VIAL IV PUSH ONE (11:00)
--- NOTE | 2016-12-01 11:03 | PD ---
HPI Chief Complaint: Respiratory Symptoms Time Seen by Provider: 10:45 Travel History International Travel<30 days: No Contact w/Intl Traveler<30days: No Traveled to known affect area: No History of Present Illness HPI Patient is a 81-year-old male with history of atrial fibrillation, hypertension , hyperlipidemia, diabetes mellitus type II, COPD, CHF, aortic stenosis, aortic aneurysm status post aortic valve placement and ascending thoracic abdominal aortic repair by Dr. Irvin for [facility] in March 2016. As per patient's son, patient has not been feeling well for the past few days. Reports that he has been feeling shortness of breath and has been having increased coughing, congestion and wheezing. Patient reports that he is a past smoker with history of COPD, he did use his nebulizer treatments yesterday with no relief of symptoms. Patient reports that when he coughs, cough is nonproductive in nature , denies any sick contacts. Patient reports chest pain when he coughs or takes a deep breath - patient with no chest pain at this time. PFSH Past Medical History Hx Anticoagulant Therapy: Yes AAA: Yes Arthritis: No Asthma: Yes Atrial Fibrillation: Yes Autoimmune Disease: No Anxiety: Yes Depression: Yes Heart Rhythm Problems: Yes (afib ) Cancer: No Cardiovascular Problems: Yes High Cholesterol: Yes Chest Pain: No Cerebrovascular Accident: Yes Diabetes: Yes Diminished Hearing: Yes Hypertension: Yes Implanted Vascular Access Dvce: No Musculoskeletal: No Reproductive: No Respiratory: Yes (asthma) Migraines: No Sleep Apnea: No Past Surgical History Abdominal Surgery: Yes Cardiac Surgery: Yes ( aortic valve replacement, cardiac cath.) Ear Surgery: No Endocrine Surgery: No Genitourinary Surgery: No Oral Surgery: No Other Surgery: Yes Social History Alcohol Use: No Tobacco Use: No Substance Use: No Allergies-Medications (Allergen,Severity, Reaction): Coded Allergies: No Known Allergies (Unverified , 12/01/16) Reported Meds & Prescriptions Reported Meds & Active Scripts Active Proair Hfa 8.5 GM Inh (Albuterol Sulfate) 90 Mcg/Act Aer 2 Puff INH Q4-6H PRN 108 mcg/actuation Prednisone 20 Mg Tab 20 Mg PO BID 7 Days Azithromycin 500 Mg Tab 500 Mg PO DAILY Restoril (Temazepam) 15 Mg Cap 15 Mg PO HS PRN Coumadin (Warfarin) 5 Mg Tab 5 Mg PO DAILY@1600 Furosemide 40 Mg Tab 40 Mg PO DAILY Reported [insulin] 10 Unit SQ Breo Ellipta Inh (Fluticasone/Vilanterol) 100-25 Mcg/Act Inh 1 Puff INH DAILY Use daily at the same time. Proair Hfa 8.5 GM Inh (Albuterol Sulfate) 90 Mcg/Act Aer 1 Puff INH Q4H PRN 108 mcg/actuation Donepezil 5 Mg Tab 5 Mg PO HS Glimepiride 1 Mg Tab 1 Mg PO BID Take with breakfast or first main meal Aspirin 81 Mg Chew 81 Mg CHEW DAILY Spiriva Respimat Inh (Tiotropium Inh) 1.25 Mcg/Act Aero 2 Puff INH DAILY 1.25 mcg = 1 inhalation Ventavis Inh (Iloprost Inh) 10 Mcg/Ml Soln Metformin (Metformin HCl) 1,000 Mg Tab 1,000 Mg PO BIDPC With meals Norvasc (Amlodipine Besylate) 5 Mg Tab 5 Mg PO DAILY Atorvastatin (Atorvastatin Calcium) 40 Mg Tab 40 Mg PO HS Januvia (Sitagliptin Phosphate) 100 Mg Tab 100 Mg PO DAILY Metoprolol Tartrate 25 Mg Tab 25 Mg PO BID Trazodone (Trazodone HCl) 50 Mg Tab 50 Mg PO HS Toviaz ER (Fesoterodine Fumarate) 4 mg Aaron 4 Mg PO DAILY Benazepril (Benazepril HCl) 40 Mg Tab 20 Mg PO DAILY Invokana (Canagliflozin) 100 Mg Tab 100 Mg PO DAILY Take before 1st meal of day. Review of Systems Cardiovascular: Positive: Chest Pain or Discomfort, Diaphoresis Respiratory: Positive: Cough, Shortness of Breath, Wheezing Physical Exam Narrative GENERAL: NAD SKIN: Focused skin assessment warm/dry. HEAD: Atraumatic. Normocephalic. EYES: Pupils equal and round. No scleral icterus. No injection or drainage. ENT: No nasal bleeding or discharge. Mucous membranes pink and moist. NECK: Trachea midline. No JVD. CARDIOVASCULAR: Tachycardic. No murmur appreciated. RESPIRATORY: No accessory muscle use. Scattered wheezing throughout upper and lower lobes of the lungs.. Breath sounds equal bilaterally. GASTROINTESTINAL: Abdomen soft, non-tender, nondistended. Hepatic and splenic margins not palpable. MUSCULOSKELETAL: No obvious deformities. No clubbing. No cyanosis. No edema. NEUROLOGICAL: Awake and alert. No obvious cranial nerve deficits. Motor grossly within normal limits. Normal speech. PSYCHIATRIC: Appropriate mood and affect; insight and judgment normal. Data Data Last Documented VS Vital Signs Date Time Temp Pulse Resp B/P (MAP) Pulse Ox O2 Delivery O2 Flow Rate FiO2 12/01/16 12:35 110 20 123/73 (90) 94 Room Air 12/01/16 10:40 98.0 Orders Orders Complete Blood Count With Diff (12/01/16 10:51) Comprehensive Metabolic Panel (12/01/16 10:51) B-Type Natriuretic Peptide (12/01/16 10:51) Act Partial Throm Time (Ptt) (12/01/16 10:51) Prothrombin Time / Inr (Pt) (12/01/16 10:51) Magnesium (Mg) (12/01/16 10:51) Ckmb (Isoenzyme) Profile (12/01/16 10:51) Troponin I (12/01/16 10:51) Urinalysis - C+S If Indicated (12/01/16 10:51) Iv Access Insert/Monitor (12/01/16 10:51) Ecg Monitoring (12/01/16 10:51) Oximetry (12/01/16 10:51) Chest, Single Ap (12/01/16 10:51) Sodium Chloride 0.9% Flush (Ns Flush) (12/01/16 11:00) Methylprednisolone So Succ Inj (Solumedr (12/01/16 11:00) Albuterol Neb (Albuterol Neb) (12/01/16 11:00) Sodium Chlorid 0.9% 500 Ml Inj (Ns 500 M (12/01/16 11:45) Azithromycin (Zithromax) (12/01/16 12:45) Labs Laboratory Tests Test 12/01/16 10:45 12/01/16 11:30 White Blood Count 8.2 TH/MM3 Red Blood Count 5.18 MIL/MM3 Hemoglobin 11.8 GM/DL Hematocrit 35.8 % Mean Corpuscular Volume 69.2 FL Mean Corpuscular Hemoglobin 22.7 PG Mean Corpuscular Hemoglobin Concent 32.8 % Red Cell Distribution Width 15.3 % Platelet Count 195 TH/MM3 Mean Platelet Volume 9.3 FL Neutrophils (%) (Auto) 73.4 % Lymphocytes (%) (Auto) 14.8 % Monocytes (%) (Auto) 6.8 % Eosinophils (%) (Auto) 4.7 % Basophils (%) (Auto) 0.3 % Neutrophils # (Auto) 6.0 TH/MM3 Lymphocytes # (Auto) 1.2 TH/MM3 Monocytes # (Auto) 0.6 TH/MM3 Eosinophils # (Auto) 0.4 TH/MM3 Basophils # (Auto) 0.0 TH/MM3 CBC Comment AUTO DIFF Differential Comment AUTO DIFF CONFIRMED Platelet Estimate NORMAL Platelet Morphology Comment NORMAL Prothrombin Time 19.0 SEC Prothromb Time International Ratio 1.7 RATIO Activated Partial Thromboplast Time 31.0 SEC Blood Urea Nitrogen 44 MG/DL Creatinine 1.80 MG/DL Random Glucose 74 MG/DL Total Protein 7.2 GM/DL Albumin 3.8 GM/DL Calcium Level 8.5 MG/DL Magnesium Level 1.9 MG/DL Alkaline Phosphatase 65 U/L Aspartate Amino Transf (AST/SGOT) 19 U/L Alanine Aminotransferase (ALT/SGPT) 20 U/L Total Bilirubin 0.6 MG/DL Sodium Level 139 MEQ/L Potassium Level 3.9 MEQ/L Chloride Level 98 MEQ/L Carbon Dioxide Level 31.1 MEQ/L Anion Gap 10 MEQ/L Estimat Glomerular Filtration Rate 36 ML/MIN Total Creatine Kinase 84 U/L Troponin I 0.05 NG/ML B-Type Natriuretic Peptide 176 PG/ML Urine Collection Type CLEAN CATCH Urine Color YELLOW Urine Turbidity CLEAR Urine pH 5.5 Urine Specific [place] 1.017 Urine Protein TRACE mg/dL Urine Glucose (UA) 250 mg/dL Urine Ketones TRACE mg/dL Urine Occult Blood NEG Urine Nitrite NEG Urine Bilirubin NEG Urine Leukocyte Esterase NEG Urine RBC 0-3 /hpf Urine Squamous Epithelial Cells 0-5 /hpf Urine Amorphous Sediment FEW Microscopic Urinalysis Comment CULT NOT INDICATED Urine Collection Time 1130 MDM Medical Decision Making Medical Screen Exam Complete: Yes Emergency Medical Condition: Yes Interpretation(s) EKG at 1040: Atrial fibrillation at 120 bpm, qt/qtc: 349/420, no acute st or t wave changes Vital Signs Date Time Temp Pulse Resp B/P (MAP) Pulse Ox O2 Delivery O2 Flow Rate FiO2 12/01/16 11:05 20 96 Room Air 12/01/16 10:45 20 96 Room Air 12/01/16 10:40 98.0 102 20 122/76 (91) 96 Differential Diagnosis Differential includes COPD exacerbation, CHF exacerbation, ACS, arrhythmia, electrolyte abnormality Narrative Course Patient is a 81-year-old male who presents to emergency room complaints of shortness of breath and chest pain with cough for the past few days. Patient does have a significant medical history including COPD and CHF, he does have diffuse wheezing on exam. Patient was placed on a meat specialist upon arrival to the emergency room. IV Solu-Medrol as well as nebulizer treatments were administered. X-ray of chest ordered. Lab work including BNP ordered. Plan to monitor meat specialist. Vital Signs Date Time Temp Pulse Resp B/P (MAP) Pulse Ox O2 Delivery O2 Flow Rate FiO2 12/01/16 11:48 110 20 104/69 (81) 96 Room Air 12/01/16 11:05 20 96 Room Air 12/01/16 10:45 20 96 Room Air 12/01/16 10:40 98.0 102 20 122/76 (91) 96 Laboratory Tests Test 12/01/16 10:45 12/01/16 11:30 White Blood Count 8.2 TH/MM3 (4.0-11.0) Red Blood Count 5.18 MIL/MM3 (4.50-5.90) Hemoglobin 11.8 GM/DL (13.0-17.0) Hematocrit 35.8 % (39.0-51.0) Mean Corpuscular Volume 69.2 FL (80.0-100.0) Mean Corpuscular Hemoglobin 22.7 PG (27.0-34.0) Mean Corpuscular Hemoglobin Concent 32.8 % (32.0-36.0) Red Cell Distribution Width 15.3 % (11.6-17.2) Platelet Count 195 TH/MM3 (150-450) Mean Platelet Volume 9.3 FL (7.0-11.0) Neutrophils (%) (Auto) 73.4 % (16.0-70.0) Lymphocytes (%) (Auto) 14.8 % (9.0-44.0) Monocytes (%) (Auto) 6.8 % (0.0-8.0) Eosinophils (%) (Auto) 4.7 % (0.0-4.0) Basophils (%) (Auto) 0.3 % (0.0-2.0) Neutrophils # (Auto) 6.0 TH/MM3 (1.8-7.7) Lymphocytes # (Auto) 1.2 TH/MM3 (1.0-4.8) Monocytes # (Auto) 0.6 TH/MM3 (0-0.9) Eosinophils # (Auto) 0.4 TH/MM3 (0-0.4) Basophils # (Auto) 0.0 TH/MM3 (0-0.2) CBC Comment AUTO DIFF Prothrombin Time 19.0 SEC (9.8-11.6) Prothromb Time International Ratio 1.7 RATIO Activated Partial Thromboplast Time 31.0 SEC (24.3-30.1) Blood Urea Nitrogen 44 MG/DL (7-18) Creatinine 1.80 MG/DL (0.60-1.30) Random Glucose 74 MG/DL (74-106) Total Protein 7.2 GM/DL (6.4-8.2) Albumin 3.8 GM/DL (3.4-5.0) Calcium Level 8.5 MG/DL (8.5-10.1) Magnesium Level 1.9 MG/DL (1.5-2.5) Alkaline Phosphatase 65 U/L (45-117) Aspartate Amino Transf (AST/SGOT) 19 U/L (15-37) Alanine Aminotransferase (ALT/SGPT) 20 U/L (12-78) Total Bilirubin 0.6 MG/DL (0.2-1.0) Sodium Level 139 MEQ/L (136-145) Potassium Level 3.9 MEQ/L (3.5-5.1) Chloride Level 98 MEQ/L (98-107) Carbon Dioxide Level 31.1 MEQ/L (21.0-32.0) Anion Gap 10 MEQ/L (5-15) Estimat Glomerular Filtration Rate 36 ML/MIN (>89) Total Creatine Kinase 84 U/L (39-308) Troponin I 0.05 NG/ML (0.02-0.05) B-Type Natriuretic Peptide 176 PG/ML (0-100) Urine Collection Type CLEAN CATCH Urine Color YELLOW (YELLW/STRAW) Urine Turbidity CLEAR (CLEAR) Urine pH 5.5 (5.0-8.5) Urine Specific [place] 1.017 (1.002-1.035) Urine Protein TRACE mg/dL (NEG-TRACE) Urine Glucose (UA) 250 mg/dL (NEG) Urine Ketones TRACE mg/dL (NEG) Urine Occult Blood NEG (NEG) Urine Nitrite NEG (NEG) Urine Bilirubin NEG (NEG) Urine Leukocyte Esterase NEG (NEG) Urine RBC 0-3 /hpf (0-3) Urine Squamous Epithelial Cells 0-5 /hpf (0-5) Urine Amorphous Sediment FEW Microscopic Urinalysis Comment CULT NOT INDICATED Urine Collection Time 1130 Last Impressions Chest X-Ray 12/01/16 1051 Signed Impressions: Service Date/Time: , December 01, 2016 11:03 - CONCLUSION: 1. Mild right basilar airspace disease, likely atelectasis. 2. Postsurgical features. 3. Otherwise, no acute animality. Chandana Aponte MD Patient reevaluated, patient reports that he is feeling much better at this time. WBC 8.2, hemoglobin 11.8, hematocrit 35.8, platelets 195 Sodium 139, potassium 3.9, BUN 44, creatinine 1.80, BNP 176, troponin 0.05 PT 19, PTT 31, INR 1.7 UA trace ketones, 250 glucose X-ray of the chest shows right basilar areas disease likely atelectasis, no surgical features Reviewed all labs and all studies with patient in detail. Patient most likely short of breath due to COPD exacerbation. Discussed admission for observation vs trial outpatient treatment, patient prefers to be discharged to home at this time with follow-up with his primary care doctor. Signs and symptoms of when to return to the emergency room was reviewed with patient as well as family members in detail. Patient understands that he may return to the ER at any time for re-evaluation of his symptoms or if symptoms progress or worsen Diagnosis Primary Impression: COPD exacerbation Additional Impressions: Renal insufficiency Dehydration Patient Instructions: General Instructions Additional Instructions: Please follow up with your primary care doctor in 48-72 hours Return to the emergency room if symptoms worsen or progress Return to the emergency room as needed Please take all medications as prescribed Please drink plenty of fluids Please have your primary care doctor repeat your blood work from today as your kidney function levels were elevated today Med/Other Pt SpecificInfo: Prescription(s) given Scripts Albuterol 8.5 GM Inh (Proair Hfa 8.5 GM Inh) 90 Mcg/Act Aer 2 PUFF INH Q4-6H Y for SHORTNESS OF BREATH, #1 INHALER 0 Refills 108 mcg/actuation Prov: Karyna Black DO 12/01/16 Prednisone (Prednisone) 20 Mg Tab 20 MG PO BID for 7 Days, #14 TAB 0 Refills Prov: Karyna Black DO 12/01/16 Azithromycin (Azithromycin) 500 Mg Tab 500 MG PO DAILY for Infection, #5 TAB 0 Refills Prov: Karyna Black DO 12/01/16 Karyna Black DO Dec 01, 2016 11:03
[2016-12-01 11:05] VITALS: RESP 20; O2SAT 96
[2016-12-01 11:10] LABS: BASOPHIL % 0.3 % (0.0-2.0); EOSINOPHIL # 0.4 TH/MM3 (0-0.4); EOSINOPHIL % 4.7 % (0.0-4.0); HEMATOCRIT 35.8 % (39.0-51.0); LYMPH % 14.8 % (9.0-44.0); LYMPHOCYTE # 1.2 TH/MM3 (1.0-4.8); MEAN CELL VOLUME 69.2 FL (80.0-100.0); MEAN CORPUSCULAR HEMOGLOBIN 22.7 PG (27.0-34.0); MEAN CORPUSCULAR HGB CONC 32.8 % (32.0-36.0); MONO % 6.8 % (0.0-8.0); NEUT % 73.4 % (16.0-70.0); PLATELET COUNT 195 TH/MM3 (150-450); RED BLOOD COUNT 5.18 MIL/MM3 (4.50-5.90); RED CELL DISTRIBUTION WIDTH 15.3 % (11.6-17.2); WHITE BLOOD COUNT 8.2 TH/MM3 (4.0-11.0)
[2016-12-01 11:14] LABS: HEMO FLAGS AUTO DIFF
--- NOTE | 2016-12-01 11:14 | RADRPT ---
EXAM DATE/TIME: 12/01/2016 11:03 [facility] COMPARISON: CHEST SINGLE AP, September 27, 2016, 10:02. INDICATIONS : Short of breath. MEDICAL HISTORY : Hypertension. Aneurysm, abdominal. SURGICAL HISTORY : aortic valve repair, thoracic aneurysm repair ENCOUNTER: Initial ACUITY: 2 days PAIN SCORE: 0/10 LOCATION: Bilateral chest FINDINGS: Stable median sternotomy wires. Mild right basilar airspace disease. Lungs are otherwise clear. Cardi omediastinal contours are within normal limits given portable technique. Bony thorax is intact. CONCLUSION: 1. Mild right basilar airspace disease, likely atelectasis. 2. Postsurgical features. 3. Otherwise, no acute animality. Chandana Aponte MD on December 01, 2016 at 11:11 Board Certified Radiologist. This report was verified electronically.
[2016-12-01 11:21] LABS: CHLORIDE 98 MEQ/L (98-107); POTASSIUM 3.9 MEQ/L (3.5-5.1); SODIUM (NA) 139 MEQ/L (136-145)
[2016-12-01 11:25] LABS: ANION GAP 10 MEQ/L (5-15); BICARBONATE 31.1 MEQ/L (21.0-32.0); BLOOD UREA NITROGEN 44 MG/DL (7-18); INTERNATIONAL NORMALIZED RATIO 1.7 RATIO; MAGNESIUM 1.9 MG/DL (1.5-2.5)
[2016-12-01 11:28] LABS: ALT (GPT) 20 U/L (12-78); AST (GOT) 19 U/L (15-37); GLOMERULAR FILTRATION RATE 36 ML/MIN (>89)
[2016-12-01 11:31] LABS: ALKALINE PHOSPHATASE 65 U/L (45-117)
[2016-12-01 11:34] LABS: TOTAL BILIRUBIN ADULT 0.6 MG/DL (0.2-1.0)
[2016-12-01 11:36] LABS: BLOOD, URINE NEG (NEG); GLUCOSE,URINE 250 mg/dL (NEG); KETONE, URINE TRACE mg/dL (NEG); NITRITE,URINE NEG (NEG); PH, URINE 5.5 (5.0-8.5)
[2016-12-01 11:36] LABS: CREATINE KINASE 84 U/L (39-308)
[2016-12-01 11:42] LABS: METHOD OF COLLECTION CLEAN CATCH; URINE COLOR YELLOW (YELLW/STRAW)
[2016-12-01 11:43] LABS: COMMENT (UR) CULT NOT INDICATED; COMMENT2 (UR) MUCOUS PRESENT; CULTURE IF INDICATED CULT NOT INDICATED; RBC, URINE 0-3 /hpf (0-3); SQUAMOUS EPITHELIAL CELL URINE 0-5 /hpf (0-5)
[2016-12-01] MEDS ORDERED: SODIUM CHLORID 0.9% 500 ML INJ 500 ML IV ONE (11:45)
[2016-12-01 11:48] VITALS: BP 104/69; PULSE 110; RESP 20; O2SAT 96
[2016-12-01] MEDS ORDERED: ALBUAER3 INH (11:55)
[2016-12-01] MEDS ORDERED: PRED20 PO (11:55)
[2016-12-01] MEDS ORDERED: AZIT500T2 PO (11:55)
[2016-12-01 11:59] LABS: PLATELET ESTIMATE SMEAR NORMAL (NORMAL); PLATELET MORPHOLOGY NORMAL (NORMAL); SCAN/DIFF AUTO DIFF CONFIRMED
[2016-12-01 12:35] VITALS: BP 123/73; PULSE 110; RESP 20; O2SAT 94
[2016-12-01] MEDS ORDERED: AZITHROMYCIN 250 MG TAB PO ONE (12:45)
--- NOTE | 2016-12-02 11:54 | EKG ---
Date Performed: 12/01/2016 Time Performed: 10:40:17 PTAGE: 81 years EKG: REGULAR SUPRAVENTRICULAR TACHYCARDIA THIS COULD BE AN ATYPICAL 2:1 FLUTTER OR POSSIBLE EVEN SINUS TACHYCARDIA, CLINICAL CORRELATION IS NEEDED LEFT AXIS DEVIATION LEFT ANTERIOR FASCICULAR BLOCK RIGHT BUNDLE BRANCH BLOCK ABNORMAL ECG Compared to PREVIOUS TRACING , the tachycardia is new. PREVIOUS TRACIN09/27/2016 18.44 DOCTOR: Bill Roy Interpretating Date/Time 12/02/2016 11:53:11
== END 2016-12-01 13:29 | disposition home or self-care (01) ==
LOC: PHED 10:31
DX: J44.1 Chronic obstructive pulmonary disease with (acute) exacerbation (principal); N28.9 Disorder of kidney and ureter, unspecified; E86.0 Dehydration; I48.91 Unspecified atrial fibrillation; E11.9 Type 2 diabetes mellitus without complications; Z79.01 Long term (current) use of anticoagulants; Z79.4 Long term (current) use of insulin; Z79.899 Other long term (current) drug therapy
CPT/HCPCS: 71010; 80053; 81001; 82550; 83735; 83880; 84484; 85025; 85610; 85730; 93005; 94640; 94664; 96361; 96374; 99284; J2930; J7040; J7613

== ENCOUNTER 2017-02-27 10:19 | Observation (INO) | payer OTHER ==
[2017-02-27] VITALS (7 sets, daily range): BP systolic 141–166; BP diastolic 79–88; PULSE 107–112; RESP 18–32; TEMP 98.1–98.8; O2SAT 93–95
[~2017-02-27] VITALS: Ht 167.6 cm; Wt 62.2 kg
[~2017-02-27 10:19] MED LIST changes: +ASPI-516 CHEW; -ASPI81CH CHEW; +AZIT500T2 PO
--- NOTE | 2017-02-27 10:38 | PD ---
HPI Chief Complaint: Respiratory Symptoms Time Seen by Provider: 10:24 Travel History International Travel<30 days: No Contact w/Intl Traveler<30days: No Traveled to known affect area: No History of Present Illness HPI This 81-year-old male is complaining of shortness of breath. He says he been short of breath for about 2 days. He has a history of COPD and congestive heart failure. He says he stopped smoking 6 months ago. He had an aortic valve replacement done in the past. He is not aware of any fever or chills. He is coughing up some phlegm. He is not having any chest pain. He has not had any edema PFSH Past Medical History Hx Anticoagulant Therapy: Yes AAA: Yes Arthritis: No Asthma: Yes Atrial Fibrillation: Yes Autoimmune Disease: No Anxiety: Yes Depression: Yes Heart Rhythm Problems: Yes (afib ) Cancer: No Cardiovascular Problems: Yes High Cholesterol: Yes Chest Pain: No Cerebrovascular Accident: Yes Diabetes: Yes Diminished Hearing: Yes Hypertension: Yes Implanted Vascular Access Dvce: No Musculoskeletal: No Reproductive: No Respiratory: Yes (COPD) Migraines: No Sleep Apnea: No Past Surgical History Abdominal Surgery: Yes Cardiac Surgery: Yes ( aortic valve replacement, cardiac cath.) Ear Surgery: No Endocrine Surgery: No Genitourinary Surgery: No Oral Surgery: No Other Surgery: Yes Social History Alcohol Use: No Tobacco Use: No Substance Use: No Allergies-Medications (Allergen,Severity, Reaction): Coded Allergies: No Known Allergies (Unverified Adverse Reaction, Unknown, 02/27/17) Reported Meds & Prescriptions Reported Meds & Active Scripts Active Proair Hfa 8.5 GM Inh (Albuterol Sulfate) 90 Mcg/Act Aer 2 Puff INH Q4-6H PRN 108 mcg/actuation Coumadin (Warfarin) 5 Mg Tab 5 Mg PO DAILY@1600 Furosemide 40 Mg Tab 40 Mg PO DAILY Reported Breo Ellipta Inh (Fluticasone/Vilanterol) 100-25 Mcg/Act Inh 1 Puff INH DAILY Use daily at the same time. Proair Hfa 8.5 GM Inh (Albuterol Sulfate) 90 Mcg/Act Aer 1 Puff INH Q4H PRN 108 mcg/actuation Donepezil 5 Mg Tab 5 Mg PO HS Glimepiride 1 Mg Tab 1 Mg PO BID Take with breakfast or first main meal Spiriva Respimat Inh (Tiotropium Inh) 1.25 Mcg/Act Aero 2 Puff INH DAILY 1.25 mcg = 1 inhalation Ventavis Inh (Iloprost Inh) 10 Mcg/Ml Soln Metformin (Metformin HCl) 1,000 Mg Tab 1,000 Mg PO BIDPC With meals Norvasc (Amlodipine Besylate) 5 Mg Tab 5 Mg PO DAILY Atorvastatin (Atorvastatin Calcium) 40 Mg Tab 40 Mg PO HS Januvia (Sitagliptin Phosphate) 100 Mg Tab 100 Mg PO DAILY Metoprolol Tartrate 25 Mg Tab 25 Mg PO BID Toviaz ER (Fesoterodine Fumarate) 4 mg Aaron 4 Mg PO DAILY Benazepril (Benazepril HCl) 40 Mg Tab 20 Mg PO DAILY Invokana (Canagliflozin) 100 Mg Tab 100 Mg PO DAILY Take before 1st meal of day. Review of Systems General / Constitutional: No: Fever, Chills Eyes: No: Diploplia, Blurred Vision HENT: No: Headaches Cardiovascular: No: Chest Pain or Discomfort, Palpitations Respiratory: Positive: Cough, Shortness of Breath, Wheezing Gastrointestinal: No: Vomiting, Diarrhea Genitourinary: No: Urgency, Frequency Musculoskeletal: No: Myalgias, Arthralgias Skin: No Rash, No Itching Neurologic: No: Weakness Endocrine: No: Heat Intolerance, Cold Intolerance Hematologic/Lymphatic: No: Easy Bruising Physical Exam Narrative GENERAL: Elderly male male in moderate respiratory distress. He has a barrel chest. There is audible expiratory wheezes SKIN: Focused skin assessment warm/dry. HEAD: Atraumatic. Normocephalic. EYES: Pupils equal and round. No scleral icterus. No injection or drainage. ENT: No nasal bleeding or discharge. Mucous membranes pink and moist. NECK: Trachea midline. No JVD. CARDIOVASCULAR: Regular rate and rhythm. No murmur appreciated. RESPIRATORY: There is accessory muscle use. There is bilateral wheezing GASTROINTESTINAL: Abdomen soft, non-tender, nondistended. Hepatic and splenic margins not palpable. MUSCULOSKELETAL: No obvious deformities. No clubbing. No cyanosis. No edema. NEUROLOGICAL: Awake and alert. No obvious cranial nerve deficits. Motor grossly within normal limits. Normal speech. PSYCHIATRIC: Appropriate mood and affect; insight and judgment normal. Data Data Last Documented VS Vital Signs Date Time Temp Pulse Resp B/P (MAP) Pulse Ox O2 Delivery O2 Flow Rate FiO2 02/27/17 11:34 98.2 110 26 146/86 (106) 95 Room Air 02/27/17 10:40 2.00 Orders Orders Electrocardiogram (02/27/17 10:32) Complete Blood Count With Diff (02/27/17 10:32) Comprehensive Metabolic Panel (02/27/17 10:32) Prothrombin Time / Inr (Pt) (02/27/17 10:32) Act Partial Throm Time (Ptt) (02/27/17 10:32) Blood Culture (02/27/17 10:32) Influenzae A/B Antigen (02/27/17 10:32) Chest, Single Ap (02/27/17 10:32) Albuterol-Ipratropium Neb (Duoneb Neb) (02/27/17 10:45) Troponin I (02/27/17 10:32) B-Type Natriuretic Peptide (02/27/17 10:37) Methylprednisolone So Succ Inj (Solumedr (02/27/17 11:15) Labs Laboratory Tests Test 02/27/17 10:30 White Blood Count 9.5 TH/MM3 Red Blood Count 5.39 MIL/MM3 Hemoglobin 11.8 GM/DL Hematocrit 37.8 % Mean Corpuscular Volume 70.1 FL Mean Corpuscular Hemoglobin 21.9 PG Mean Corpuscular Hemoglobin Concent 31.3 % Red Cell Distribution Width 15.3 % Platelet Count 205 TH/MM3 Mean Platelet Volume 8.4 FL Neutrophils (%) (Auto) 82.6 % Lymphocytes (%) (Auto) 9.3 % Monocytes (%) (Auto) 6.1 % Eosinophils (%) (Auto) 1.5 % Basophils (%) (Auto) 0.5 % Neutrophils # (Auto) 7.9 TH/MM3 Lymphocytes # (Auto) 0.9 TH/MM3 Monocytes # (Auto) 0.6 TH/MM3 Eosinophils # (Auto) 0.1 TH/MM3 Basophils # (Auto) 0.0 TH/MM3 CBC Comment AUTO DIFF Prothrombin Time 31.2 SEC Prothromb Time International Ratio 3.1 RATIO Activated Partial Thromboplast Time 36.9 SEC Blood Urea Nitrogen 31 MG/DL Creatinine 1.60 MG/DL Random Glucose 123 MG/DL Total Protein 7.6 GM/DL Albumin 3.7 GM/DL Calcium Level 8.8 MG/DL Alkaline Phosphatase 74 U/L Aspartate Amino Transf (AST/SGOT) 28 U/L Alanine Aminotransferase (ALT/SGPT) 19 U/L Total Bilirubin 0.5 MG/DL Sodium Level 142 MEQ/L Potassium Level 4.0 MEQ/L Chloride Level 102 MEQ/L Carbon Dioxide Level 28.3 MEQ/L Anion Gap 12 MEQ/L Estimat Glomerular Filtration Rate 42 ML/MIN Troponin I 0.05 NG/ML B-Type Natriuretic Peptide 493 PG/ML MDM Medical Decision Making Medical Screen Exam Complete: Yes Emergency Medical Condition: Yes Medical Record Reviewed: Yes Differential Diagnosis Differential includes CHF, COPD exacerbation, pneumonia Narrative Course Patient is on Coumadin. His INR is therapeutic. BNP is 493. Chest x-ray shows enlarged heart but clear lung land. He's been given Solu-Medrol and 3 nebulizer treatments. He remains short of breath with bilateral expiratory wheezing. Saturations varied from 91% to 93% Diagnosis Primary Impression: COPD exacerbation Admitting Information Admitting Physician Requests: Observation Raoul Tobar MD Feb 27, 2017 10:38
[2017-02-27] MEDS ORDERED: RESP: ALBUTEROL 2.5 MG/IPRATROPIUM 0.5 MG NEB (SCH) NEB ONE (10:45)
[2017-02-27 11:06] LABS: AUTOMATED NEUTROPHIL # 7.9 TH/MM3 (1.8-7.7); BASOPHIL % 0.5 % (0.0-2.0); EOSINOPHIL # 0.1 TH/MM3 (0-0.4); EOSINOPHIL % 1.5 % (0.0-4.0); HEMATOCRIT 37.8 % (39.0-51.0); LYMPH % 9.3 % (9.0-44.0); LYMPHOCYTE # 0.9 TH/MM3 (1.0-4.8); MEAN CELL VOLUME 70.1 FL (80.0-100.0); MEAN CORPUSCULAR HEMOGLOBIN 21.9 PG (27.0-34.0); MEAN CORPUSCULAR HGB CONC 31.3 % (32.0-36.0); MONO % 6.1 % (0.0-8.0); NEUT % 82.6 % (16.0-70.0); PLATELET COUNT 205 TH/MM3 (150-450); RED BLOOD COUNT 5.39 MIL/MM3 (4.50-5.90); RED CELL DISTRIBUTION WIDTH 15.3 % (11.6-17.2); WHITE BLOOD COUNT 9.5 TH/MM3 (4.0-11.0)
[2017-02-27 11:10] LABS: CHLORIDE 102 MEQ/L (98-107); SODIUM (NA) 142 MEQ/L (136-145)
[2017-02-27 11:12] LABS: APTT (PATIENT) 36.9 SEC (24.3-30.1); INTERNATIONAL NORMALIZED RATIO 3.1 RATIO; PROTHROMBIN TIME - PATIENT 31.2 SEC (9.8-11.6)
--- NOTE | 2017-02-27 11:12 | RADRPT ---
EXAM DATE/TIME: 02/27/2017 10:54 [facility] COMPARISON: CHEST SINGLE AP, December 01, 2016, 11:03. INDICATIONS : Short of Breath MEDICAL HISTORY : Hypertension. Aneurysm, abdominal SURGICAL HISTORY : aortic valve repair, thoracic aneurysm repair ENCOUNTER: Initial ACUITY: 1 day PAIN SCORE: 0/10 LOCATION: Bilateral chest FINDINGS: A single view of the chest demonstrates the lungs to be symmetrically aerated without evidence of mas s, infiltrate or effusion. Previous median sternotomy. Cardiomegaly. The cardiomediastinal contours are unremarkable. Osseous structures are intact. CONCLUSION: Cardiomegaly and previous median sternotomy. Manuel Jones MD on February 27, 2017 at 11:08 Board Certified Radiologist. This report was verified electronically.
[2017-02-27 11:13] LABS: ANION GAP 12 MEQ/L (5-15); BICARBONATE 28.3 MEQ/L (21.0-32.0); BLOOD UREA NITROGEN 31 MG/DL (7-18)
[2017-02-27] MEDS ORDERED: methylPREDNISolone SOD SUCC 125 MG/2 ML VIAL IV PUSH ONE (11:15)
[2017-02-27 11:16] LABS: ALT (GPT) 19 U/L (12-78); AST (GOT) 28 U/L (15-37); GLOMERULAR FILTRATION RATE 42 ML/MIN (>89)
[2017-02-27 11:17] LABS: HEMO FLAGS AUTO DIFF
[2017-02-27 11:18] LABS: TOTAL BILIRUBIN ADULT 0.5 MG/DL (0.2-1.0)
[2017-02-27 11:19] LABS: ALKALINE PHOSPHATASE 74 U/L (45-117)
[2017-02-27 11:41] LABS: OVALOCYTES 1+ (NORMAL)
[2017-02-27 11:43] LABS: PLATELET ESTIMATE SMEAR NORMAL (NORMAL); PLATELET MORPHOLOGY NORMAL (NORMAL); SCAN/DIFF AUTO DIFF CONFIRMED; TOXIC GRANULATION 1+ (NORMAL)
[2017-02-27] MEDS ORDERED: cefTRIAXone INJ 1,000 MG in SODIUM CHLORIDE 0.9% INJ 100 ML IV ONE (11:45)
[2017-02-27] MEDS ORDERED: RESP: ALBUTEROL 1.25 MG/3 ML NEB (PRN) NEB (13:45)
--- NOTE | 2017-02-27 13:57 | HHI.HP ---
[facility] Primary Care Physician Josue Garibay MD Admission Diagnosis COPD EXACERBATION Diagnoses: Chief Complaint: Shortness of breath Travel History International Travel<30 Days: No Contact w/Intl Traveler <30 Da: No Traveled to Known Affected Are: No History of Present Illness A 81-year-old white male being admitted for shortness of breath. Patient was in his usual state of health until about 3-4 days ago when he developed a cough nasal congestion and subsequent shortness of breath. He says he kept taking his home medications especially his inhalers but his shortness of breath persisted and also progressed. He says he heard himself wheezing. He did have some posttussive emesis. Denies any fevers or chills or any chest pain. Denies seeing any cyanosis in his fingertips her lips. Patient states that his shortness of breath persisted despite resting or exertion. He says his cigarette package examiner is Dr. Galindo and his security systems technician is Dr. Garibay. Review of Systems Except as stated in HPI: all other systems reviewed are Neg Past Family Social History Past Medical History Unspecified cardiovascular aneurysm COPD Past Surgical History Valve replacement Allergies: Coded Allergies: No Known Allergies (Unverified Allergy, Unknown, 02/27/17) Family History Sr. with lung cancer Social History Reports being a 3-4 pack per day cigarette smoker for many years, quit a few years ago Physical Exam Vital Signs Vital Signs Date Time Temp Pulse Resp B/P (MAP) Pulse Ox O2 Delivery O2 Flow Rate FiO2 02/27/17 13:11 02/27/17 12:40 112 24 146/88 (107) 94 Room Air 02/27/17 11:34 98.2 110 24 146/86 (106) 95 Room Air 02/27/17 10:40 95 Nasal Cannula 2.00 02/27/17 10:25 98.8 110 32 141/87 (105) 93 Physical Exam VS: Afebrile GENERAL: Elderly white male, well-nourished, SKIN: Warm and dry. EYES: No scleral icterus. No injection or drainage. ENT: No nasal bleeding or discharge. Mucous membranes pink and moist. CARDIOVASCULAR: Regular rate and rhythm. no murmurs RESPIRATORY: Does have moderate expiratory wheezing and some abdominal retractions GASTROINTESTINAL: Abdomen soft, non-tender, nondistended. reducible umbilical hernia Extremities: No clubbing, cyanosis, or edema. No obvious deformities. MUSCULOSKELETAL: No obvious deformities. grossly intact ROM with 5/5 strength in upper and lower extremities proximally NEUROLOGICAL: Awake and alert. No obvious cranial nerve deficits. No facial droop nor slurred speech noted. PSYCHIATRIC: Appropriate mood and affect; insight and judgment normal. Laboratory Laboratory Tests Test 02/27/17 10:30 White Blood Count 9.5 Red Blood Count 5.39 Hemoglobin 11.8 Hematocrit 37.8 Mean Corpuscular Volume 70.1 Mean Corpuscular Hemoglobin 21.9 Mean Corpuscular Hemoglobin Concent 31.3 Red Cell Distribution Width 15.3 Platelet Count 205 Mean Platelet Volume 8.4 Neutrophils (%) (Auto) 82.6 Lymphocytes (%) (Auto) 9.3 Monocytes (%) (Auto) 6.1 Eosinophils (%) (Auto) 1.5 Basophils (%) (Auto) 0.5 Neutrophils # (Auto) 7.9 Lymphocytes # (Auto) 0.9 Monocytes # (Auto) 0.6 Eosinophils # (Auto) 0.1 Basophils # (Auto) 0.0 CBC Comment AUTO DIFF Differential Comment AUTO DIFF CONFIRMED Toxic Granulation 1+ Platelet Estimate NORMAL Platelet Morphology Comment NORMAL Ovalocytes 1+ Prothrombin Time 31.2 Prothromb Time International Ratio 3.1 Activated Partial Thromboplast Time 36.9 Blood Urea Nitrogen 31 Creatinine 1.60 Random Glucose 123 Total Protein 7.6 Albumin 3.7 Calcium Level 8.8 Alkaline Phosphatase 74 Aspartate Amino Transf (AST/SGOT) 28 Alanine Aminotransferase (ALT/SGPT) 19 Total Bilirubin 0.5 Sodium Level 142 Potassium Level 4.0 Chloride Level 102 Carbon Dioxide Level 28.3 Anion Gap 12 Estimat Glomerular Filtration Rate 42 Troponin I 0.05 B-Type Natriuretic Peptide 493 Date/Time Source Procedure Growth Status 02/27/17 10:45 Blood Peripheral Aerobic Blood Culture Pending Received 02/27/17 10:45 Blood Peripheral Anaerobic Blood Culture Pending Received 02/27/17 10:40 Nasal Aspirate Influenza Types A,B Antigen (GERBER) - Final NEGATIVE FOR FLU A AND B ANTIGEN.... Complete Result Diagram: 02/27/17 1030 02/27/17 1030 Imaging Last Impressions Chest X-Ray 02/27/17 1032 Signed Impressions: Service Date/Time: Monday, February 27, 2017 10:54 - CONCLUSION: Cardiomegaly and previous median sternotomy. MD Vic Hickman VTE Risk Assessment Vic VTE Risk Assessment: Mod/High Risk (score >= 2) Caprini Risk Assessment Model Point Value = 1 Point Value = 2 Point Value = 3 Point Value = 5 Age 41-60 Minor surgery BMI > 25 kg/m2 Swollen legs Varicose veins or History of unexplained or recurrent spontaneous Oral contraceptives or hormone replacement Sepsis (< 1 month) Serious lung disease, including pneumonia (< 1 month) Abnormal pulmonary function Acute myocardial infarction Congestive heart failure (< 1 month) History of inflammatory bowel disease Medical patient at bed rest Age 61-74 Arthroscopic surgery Major open surgery (> 45 min) Laparoscopic surgery (> 45 min) Malignancy Confined to bed (> 72 hours) Immobilizing plaster cast Central venous access Age >= 75 History of VTE Family history of VTE Factor V Leiden Prothrombin [id number] Lupus anticoagulant Anticardiolipin antibodies Elevated serum homocysteine Heparin-induced thrombocytopenia Other congenital or acquired thrombophilia Stroke (< 1 month) Elective arthroplasty Hip, pelvis, or leg fracture Acute spinal cord injury (< 1 month) Prophylaxis Regimen Total Risk Factor Score Risk Level Prophylaxis Regimen 0-1 Low Early ambulation 2 Moderate Order ONE of the following: *Sequential Compression Device (SCD) *Heparin 5000 units SQ BID 3-4 Higher Order ONE of the following medications: *Heparin 5000 units SQ TID *Enoxaparin/Lovenox 40 mg SQ daily (WT < 150 kg, CrCl > 30 mL/min) *Enoxaparin/Lovenox 30 mg SQ daily (WT < 150 kg, CrCl > 10-29 mL/min) *Enoxaparin/Lovenox 30 mg SQ BID (WT < 150 kg, CrCl > 30 mL/min) AND/OR *Sequential Compression Device (SCD) 5 or more Highest Order ONE of the following medications: *Heparin 5000 units SQ TID (Preferred with Epidurals) *Enoxaparin/Lovenox 40 mg SQ daily (WT < 150 kg, CrCl > 30 mL/min) *Enoxaparin/Lovenox 30 mg SQ daily (WT < 150 kg, CrCl > 10-29 mL/min) *Enoxaparin/Lovenox 30 mg SQ BID (WT < 150 kg, CrCl > 30 mL/min) AND *Sequential Compression Device (SCD) Assessment and Plan Assessment and Plan 81-year-old white male being admitted for shortness of breath Shortness of breath - Most likely secondary to COPD exacerbation - I independently reviewed the chest x-ray and see no acute findings. - We'll continue high-dose Solu-Medrol for 24 hours along with DuoNebs - rocephin x 1 in ED - procalcitonin level pending, if neg won't need abx upon d/c Heart valve replacement - Manage Coumadin with Coumadin consult Hyperlipidemia - Continue home atorvastatin Hypertension - Continue home amlodipine and lisinopril and metoprolol SCDs Deshaun Damon MD Feb 27, 2017 13:57
[2017-02-27] MEDS ORDERED: ALBUTEROL SULFATE 90 MCG/ACT HFA 8 GM INHALER INH PRN (14:00)
[2017-02-27] MEDS: RESP: ALBUTEROL 2.5 MG/IPRATROPIUM 0.5 MG NEB (SCH) NEB ×2 (15:21→22:44)
[2017-02-27] MEDS: methylPREDNISolone SOD SUCC 125 MG/2 ML VIAL IV PUSH SCH (15:36)
--- NOTE | 2017-02-27 17:53 | EKG ---
Date Performed: 02/27/2017 Time Performed: 10:29:24 PTAGE: 81 years EKG: ECTOPIC ATRIAL TACHYCARDIA WITH FIRST DEGREE AV BLOCK MARKED LEFT AXIS DEVIATION RIGHT BUND LE BRANCH BLOCK LEFT VENTRICULAR HYPERTROPHY AND ST-T CHANGE Compared to previous tracing, HR is slow er. Similar to prior tracing, there's a regular supraventricular tachycardia, most likely sinus tachy cardia though an atrial tachycardia is possible ABNORMAL ECG PREVIOUS TRACING : 12/01/2016 10.40 DOCTOR: Daniel Marrero Interpretating Date/Time 02/27/2017 17:52:44
[2017-02-27] MEDS ORDERED: diphenhydrAMINE HCL 25 MG CAP PO ONE (20:30)
[2017-02-27] MEDS: METOPROLOL TARTRATE 25 MG TAB PO SCH (20:33)
[2017-02-27] MEDS: SODIUM CHLORIDE 0.9% FLUSH 10 ML FLUSH IV FLUSH SCH (20:34)
[2017-02-27] MEDS ORDERED: DONEPEZIL HCL 5 MG TAB PO SCH (21:00)
[2017-02-27] MEDS ORDERED: ATORVASTATIN 40 MG TAB PO SCH (21:00)
[2017-02-28 00:05] VITALS: BP 154/84; PULSE 105; RESP 16; TEMP 97.9; O2SAT 94
[2017-02-28] MEDS: methylPREDNISolone SOD SUCC 125 MG/2 ML VIAL IV PUSH SCH ×2 (00:15→09:10)
[2017-02-28] MEDS ORDERED: MELATONIN 5 MG TAB PO ONE (00:15)
[2017-02-28] MEDS: RESP: ALBUTEROL 2.5 MG/IPRATROPIUM 0.5 MG NEB (SCH) NEB ×2 (04:16→10:25)
[2017-02-28 08:00] VITALS: BP 150/86; PULSE 115; RESP 12; TEMP 98; O2SAT 94
[2017-02-28] MEDS ORDERED: amLODIPine BESYLATE 5 MG TAB PO SCH (09:00)
[2017-02-28] MEDS ORDERED: LISINOPRIL 20 MG TAB PO SCH (09:00)
[2017-02-28] MEDS ORDERED: TOLTERODINE TARTRATE 4 MG CAP LA PO SCH (09:00)
[2017-02-28] MEDS ORDERED: FLUTICASONE 100 MCG/VILANTEROL 25 MCG INHALER INH SCH (09:00)
[2017-02-28] MEDS ORDERED: FUROSEMIDE 40 MG TAB PO SCH (09:00)
[2017-02-28] MEDS ORDERED: TIOTROPIUM BROMIDE 18 MCG INH INH SCH (09:00)
[2017-02-28] MEDS: METOPROLOL TARTRATE 25 MG TAB PO SCH (09:08)
[2017-02-28] MEDS: SODIUM CHLORIDE 0.9% FLUSH 10 ML FLUSH IV FLUSH SCH (09:13)
[2017-02-28 10:28] VITALS: O2SAT 96
[2017-02-28 12:00] VITALS: BP 139/87; PULSE 111; RESP 14; TEMP 97.8; O2SAT 92
[2017-02-28] MEDS ORDERED: FLUT1INH INH (12:55)
[2017-02-28] MEDS ORDERED: TIOT1AER2 INH (12:55)
[2017-02-28] MEDS ORDERED: PRED5PAK2 PO (12:56)
--- NOTE | 2017-02-28 12:58 | HHI.DCPOC ---
Discharge Care Plan Diagnosis: (1) COPD exacerbation Goals to Promote Your Health * To prevent worsening of your condition and complications * To maintain your health at the optimal level Follow-up with your primary care doctor in about 3-5 days and have your Coumadin blood level checked and adjusted since you are on antibiotics and this will affect that. Directions to Meet Your Goals Take your medications as prescribed Follow your dietary instruction Follow activity as directed Keep your appointments as scheduled Take your immunizations and boosters as scheduled If your symptoms worsen call your PCP, if no PCP go to Urgent Care Center or Emergency Room Smoking is Dangerous to Your Health. Avoid second hand smoke Call the 24-hour hour crisis hotline for domestic abuse at Deshaun Damon MD Feb 28, 2017 12:58
--- NOTE | 2017-02-28 12:59 | HHI.PR ---
Subjective Remarks RN denies any deterioration since last night. Pt himself feels better. Says his SOB is resolved. Wants to go home. Patient does affirm that his heart rate can run from the 100s and 1:15's and this is normal for him given his A. fib. Objective Vital Signs Date Time Temp Pulse Resp B/P (MAP) Pulse Ox O2 Delivery O2 Flow Rate FiO2 02/28/17 10:28 96 02/28/17 08:00 98.0 115 12 150/86 (107) 94 02/28/17 00:05 97.9 105 16 154/84 (107) 94 02/27/17 20:00 98.8 107 18 166/79 (108) 94 02/27/17 19:13 93 21 02/27/17 16:00 98.1 111 18 148/82 (104) 95 02/27/17 13:11 I/O 02/27/17 02/27/17 02/27/17 02/28/17 02/28/17 02/28/17 07:00 15:00 23:00 07:00 15:00 23:00 Intake Total 100 ml 360 ml 360 ml Balance 100 ml 360 ml 360 ml Intake Oral 360 ml 360 ml IV Total 100 ml # Voids 2 2 # Bowel Movements 0 Result Diagram: 02/27/17 1030 02/27/17 1030 Objective Remarks lungs: CTA x 2, unlabored breathing A/P Assessment and Plan acute COPD exacerbation - stabilized. - discharging pt on steroid taper and doxycycline. Patient was counseled on importance of taking his prescribed inhaler medications. Patient has met maximal benefit from hospitalization and is clinically stable for discharge. Deshaun Damon MD Feb 28, 2017 12:59
[2017-02-28] MEDS ORDERED: WARFARIN SOD 5 MG TAB PO SCH (16:00)
[2017-02-28] MEDS ORDERED: methylPREDNISolone SOD SUCC 125 MG/2 ML VIAL IV PUSH SCH (17:00)
[2017-02-28] MEDS ORDERED: DOXY100C PO (18:30)
== END 2017-02-28 14:00 | disposition home or self-care (01) ==
LOC: PHED 10:19 → PHEDA 11:51 → INTOOBSV 11:51 → PH3A 13:08
PROVIDERS: ADMIT Hospitalist; ATTEND Hospitalist
DX: J44.1 Chronic obstructive pulmonary disease with (acute) exacerbation (principal); R11.10 Vomiting, unspecified; I47.1 Supraventricular tachycardia; I44.0 Atrioventricular block, first degree; I45.10 Unspecified right bundle-branch block; R94.31 Abnormal electrocardiogram [ECG] [EKG]; R00.0 Tachycardia, unspecified; I11.0 Hypertensive heart disease with heart failure; I50.9 Heart failure, unspecified; I48.91 Unspecified atrial fibrillation; E78.00 Pure hypercholesterolemia, unspecified; E11.9 Type 2 diabetes mellitus without complications; F41.9 Anxiety disorder, unspecified; F32.9 Major depressive disorder, single episode, unspecified; H91.90 Unspecified hearing loss, unspecified ear; Z86.73 Personal history of transient ischemic attack (TIA), and cerebral infarction without residual deficits; Z95.2 Presence of prosthetic heart valve; Z87.891 Personal history of nicotine dependence; Z79.899 Other long term (current) drug therapy; Z79.01 Long term (current) use of anticoagulants; Z79.84 Long term (current) use of oral hypoglycemic drugs
CPT/HCPCS: 71010; 80053; 83880; 84145; 84484; 85025; 85610; 85730; 87040; 87804; 93005; 94640; 94664; 96374; 99285; G0378; J0696; J2930; J7613

== ENCOUNTER 2017-03-12 07:50 | Observation (INO) | payer OTHER, MEDICAID ==
[~2017-03-12] VITALS: Ht 167.6 cm; Wt 62.0 kg
[~2017-03-12 07:50] MED LIST changes: -ASPI-516 CHEW; -AZIT500T2 PO; +DOXY100C PO; -PRED20 PO; +PRED5PAK2 PO; -REST15CA PO; -TRAZ50TA12 PO; -insulin SQ
[2017-03-12 07:55] VITALS: BP 124/52; PULSE 69; RESP 18; TEMP 97.6; O2SAT 97
[2017-03-12] MEDS ORDERED: SODIUM CHLORIDE 0.9% FLUSH 10 ML FLUSH IVF PRN (08:00)
[2017-03-12] MEDS ORDERED: COUM5TAB PO (08:01)
[2017-03-12] MEDS ORDERED: WARF-23 PO (08:01)
[2017-03-12 08:06] LABS: AUTOMATED NEUTROPHIL # 7.1 TH/MM3 (1.8-7.7); BASOPHIL # 0.1 TH/MM3 (0-0.2); BASOPHIL % 0.8 % (0.0-2.0); EOSINOPHIL # 0.2 TH/MM3 (0-0.4); EOSINOPHIL % 1.9 % (0.0-4.0); HEMATOCRIT 39.6 % (39.0-51.0); HEMOGLOBIN 12.2 GM/DL (13.0-17.0); LYMPH % 23.6 % (9.0-44.0); LYMPHOCYTE # 2.4 TH/MM3 (1.0-4.8); MEAN CELL VOLUME 69.7 FL (80.0-100.0); MEAN CORPUSCULAR HEMOGLOBIN 21.5 PG (27.0-34.0); MEAN CORPUSCULAR HGB CONC 30.9 % (32.0-36.0); MONO % 5.1 % (0.0-8.0); MONOCYTE # 0.5 TH/MM3 (0-0.9); NEUT % 68.6 % (16.0-70.0); PLATELET COUNT 172 TH/MM3 (150-450); RED BLOOD COUNT 5.68 MIL/MM3 (4.50-5.90); RED CELL DISTRIBUTION WIDTH 15.3 % (11.6-17.2); WHITE BLOOD COUNT 10.3 TH/MM3 (4.0-11.0)
[2017-03-12 08:15] LABS: CHLORIDE 102 MEQ/L (98-107); SODIUM (NA) 139 MEQ/L (136-145)
[2017-03-12 08:18] LABS: ALBUMIN 3.4 GM/DL (3.4-5.0); BICARBONATE 30.2 MEQ/L (21.0-32.0); CALCIUM 8.2 MG/DL (8.5-10.1); GLUCOSE,RANDOM 61 MG/DL (74-106)
[2017-03-12 08:19] LABS: BLOOD UREA NITROGEN 52 MG/DL (7-18)
[2017-03-12 08:21] LABS: ALT (GPT) 22 U/L (12-78)
[2017-03-12 08:22] LABS: AST (GOT) 17 U/L (15-37); GLOMERULAR FILTRATION RATE 45 ML/MIN (>89)
[2017-03-12 08:23] LABS: TOTAL BILIRUBIN ADULT 0.4 MG/DL (0.2-1.0); TOTAL PROTEIN 6.7 GM/DL (6.4-8.2)
[2017-03-12 08:24] LABS: ALKALINE PHOSPHATASE 52 U/L (45-117)
[2017-03-12 08:26] LABS: TROPONIN I 0.03 NG/ML (0.02-0.05)
[2017-03-12 08:34] LABS: INTERNATIONAL NORMALIZED RATIO 1.2 RATIO; PROTHROMBIN TIME - PATIENT 12.5 SEC (9.8-11.6)
--- NOTE | 2017-03-12 08:38 | RADRPT ---
EXAM DATE/TIME: 03/12/2017 08:12 [facility] COMPARISON: CT BRAIN W/O CONTRAST, May 10, 2016, 21:46. INDICATIONS : Slurred speech and left upper extremity numbness. RADIATION DOSE: 45.86 CTDIvol (mGy) ; Patient motion MEDICAL HISTORY : Cerebrovascular disease. Aneurysm, abdominal. Cardiovascular diseaseAnticoagulant therapy. Hypertensi on. SURGICAL HISTORY : Aortic valve replacement. Thoracic aneurysm repair. Diabetes. ENCOUNTER: Initial ACUITY: 1 day PAIN SCALE: 0/10 LOCATION: cranial TECHNIQUE: Multiple contiguous axial images were obtained of the head. Using automated exposure control and adj ustment of the mA and/or kV according to patient size, radiation dose was kept as low as reasonably a chievable to obtain optimal diagnostic quality images. DICOM format image data is available electro nically for review and comparison. FINDINGS: CEREBRUM: Lacunar infarct basalganglia in right anterior sylvian region. Small old infarct basalganglia left s jhon Ventricular size appropriate.. No parenchymal hemorrhage no extra-axial fluid POSTERIOR FOSSA: The cerebellum and brainstem are intact. The 4th ventricle is midline. The cerebellopontine angle i s unremarkable. EXTRACRANIAL: The visualized portion of the orbits is intact. SKULL: The calvaria is intact. No evidence of skull fracture. CONCLUSION: Negative for acute process Ischemic changes basalganglia bilaterally. Kenneth Mcleod MD FACR on March 12, 2017 at 8:30 Board Certified Radiologist. This report was verified electronically.
--- NOTE | 2017-03-12 08:39 | RADRPT ---
EXAM DATE/TIME: 03/12/2017 08:24 [facility] COMPARISON: CHEST SINGLE AP, February 27, 2017, 10:54. INDICATIONS : Slurred speech, left side extremity weakness MEDICAL HISTORY : Hypertension. Aneurysm, abdominal. SURGICAL HISTORY : Aortic valve, repair, thoracic aneurysm repair ENCOUNTER: Initial ACUITY: 1 day PAIN SCORE: 0/10 LOCATION: Bilateral chest FINDINGS: A single view of the chest demonstrates the lungs to be symmetrically aerated without evidence of mas s, infiltrate or effusion. Sternal wires previous bypass and valve replacement The cardiomediastinal contours are unremarkable. Osseous structures are intact. CONCLUSION: No acute disease. Kenneth Mcleod MD FACR on March 12, 2017 at 8:37 Board Certified Radiologist. This report was verified electronically.
[2017-03-12 08:42] LABS: KERATOCYTES OCC (NORMAL); OVALOCYTES 1+ (NORMAL)
[2017-03-12] MEDS ORDERED: SODIUM CHLORID 0.9% 500 ML INJ 500 ML IV ONE (08:45)
[2017-03-12 08:51] VITALS: BP 100/47; PULSE 68; RESP 18; O2SAT 95
--- NOTE | 2017-03-12 09:20 | PD ---
HPI Chief Complaint: Neuro Symptoms/ Deficits Time Seen by Provider: 07:57 Travel History International Travel<30 days: No Contact w/Intl Traveler<30days: No Traveled to known affect area: No History of Present Illness HPI Patient is a 81-year-old male who comes in after an episode of slurred speech and numbness to his left arm. It is unclear exactly what time this started. He says he woke up with it this morning around 5 AM. Currently he says his symptoms have resolved. He denies any chest pain or shortness of breath. He denies any headaches or falls. He says that he was told he had a stroke several years ago, but does not have any residual symptoms. He does have a history of atrial fibrillation and is on Coumadin. Recently he was told that his INR was too high and was told to decrease his Coumadin. PFSH Past Medical History Hx Anticoagulant Therapy: Yes AAA: Yes Arthritis: No Asthma: Yes Atrial Fibrillation: Yes Autoimmune Disease: No Anxiety: Yes Depression: Yes Heart Rhythm Problems: Yes (afib ) Cancer: No Cardiovascular Problems: Yes High Cholesterol: Yes Chest Pain: No COPD: Yes Cerebrovascular Accident: Yes Diabetes: Yes Patient Takes Glucophage: Yes Diminished Hearing: Yes (right ear hearing aid) Endocrine: Yes Genitourinary: No Hypertension: Yes Immune Disorder: No Implanted Vascular Access Dvce: No Musculoskeletal: No Neurologic: Yes Psychiatric: No Reproductive: No Respiratory: Yes (COPD) Migraines: No Sleep Apnea: No Past Surgical History Abdominal Surgery: Yes Cardiac Surgery: Yes ( aortic valve replacement, cardiac cath.) Ear Surgery: No Endocrine Surgery: No Eye Surgery: No Genitourinary Surgery: Yes (TURP) Gynecologic Surgery: No Oral Surgery: No Thoracic Surgery: Yes (thoracotomy, thorasic aneurysm repair) Other Surgery: Yes Social History Alcohol Use: No Tobacco Use: No (quit) Substance Use: No Allergies-Medications (Allergen,Severity, Reaction): Coded Allergies: No Known Allergies (Unverified Allergy, Unknown, 03/12/17) Reported Meds & Prescriptions Reported Meds & Active Scripts Active Prednisone (48) 5 mg tab Dose Pack (Prednisone) 5 Mg Dspk 5 Mg PO DIRECTED Breo Ellipta Inh (Fluticasone/Vilanterol) 100-25 Mcg/Act Inh 1 Puff INH DAILY Use daily at the same time. Spiriva Respimat Inh (Tiotropium Inh) 1.25 Mcg/Act Aero 2 Puff INH DAILY 1.25 mcg = 1 inhalation Proair Hfa 8.5 GM Inh (Albuterol Sulfate) 90 Mcg/Act Aer 2 Puff INH Q4-6H PRN 108 mcg/actuation Coumadin (Warfarin) 5 Mg Tab 5 Mg PO DAILY@1600 Furosemide 40 Mg Tab 40 Mg PO DAILY Reported Warfarin 5 Mg Tab 2.5 Mg PO EVERY OTHER DAY Coumadin (Warfarin) 5 Mg Tab 5 Mg PO EVERY OTHER DAY Donepezil 5 Mg Tab 5 Mg PO HS Glimepiride 1 Mg Tab 1 Mg PO BID Take with breakfast or first main meal Ventavis Inh (Iloprost Inh) 10 Mcg/Ml Soln Metformin (Metformin HCl) 1,000 Mg Tab 1,000 Mg PO BIDPC With meals Norvasc (Amlodipine Besylate) 5 Mg Tab 5 Mg PO DAILY Atorvastatin (Atorvastatin Calcium) 40 Mg Tab 40 Mg PO HS Januvia (Sitagliptin Phosphate) 100 Mg Tab 100 Mg PO DAILY Metoprolol Tartrate 25 Mg Tab 25 Mg PO BID Toviaz ER (Fesoterodine Fumarate) 4 mg Aaron 4 Mg PO DAILY Benazepril (Benazepril HCl) 40 Mg Tab 20 Mg PO DAILY Invokana (Canagliflozin) 100 Mg Tab 100 Mg PO DAILY Take before 1st meal of day. Review of Systems Except as stated in HPI: all other systems reviewed are Neg General / Constitutional: No: Fever, Chills Eyes: No: Blurred Vision HENT: No: Headaches, Lightheadedness Cardiovascular: No: Chest Pain or Discomfort Respiratory: No: Shortness of Breath Gastrointestinal: No: Nausea, Vomiting Genitourinary: No: Dysuria Musculoskeletal: No: Myalgias, Edema Skin: No Rash, No Change in Pigmentation Neurologic: Positive: Slurred Speech, Sensory Disturbance Physical Exam Narrative GENERAL: Awake and alert, in no acute distress. SKIN: Focused skin assessment warm/dry. HEAD: Atraumatic. Normocephalic. EYES: Pupils equal and round. No scleral icterus. ENT: Mucous membranes pink and moist. NECK: Trachea midline. No JVD. CARDIOVASCULAR: Regular rate and rhythm. No murmur appreciated. RESPIRATORY: No accessory muscle use. Clear to auscultation. Breath sounds equal bilaterally. GASTROINTESTINAL: Abdomen soft, non-tender, nondistended. MUSCULOSKELETAL: No obvious deformities. No clubbing. No cyanosis. No edema. NEUROLOGICAL: Awake and alert. No obvious cranial nerve deficits. Motor grossly within normal limits. Normal speech. Sensation intact. PSYCHIATRIC: Appropriate mood and affect; insight and judgment normal. Data Data Last Documented VS Vital Signs Date Time Temp Pulse Resp B/P (MAP) Pulse Ox O2 Delivery O2 Flow Rate FiO2 03/12/17 08:00 72 18 03/12/17 07:55 97.6 124/52 (76) 97 03/12/17 07:55 Room Air Orders Orders Electrocardiogram (03/12/17 07:57) Prothrombin Time / Inr (Pt) (03/12/17 07:57) Act Partial Throm Time (Ptt) (03/12/17 07:57) Complete Blood Count With Diff (03/12/17 07:57) Comprehensive Metabolic Panel (03/12/17 07:57) Creatine Kinase (Cpk) (03/12/17 07:57) Troponin I (03/12/17 07:57) Ct Brain W/O Iv Contrast(Rout) (03/12/17 07:57) Chest, Single Ap (03/12/17 07:57) Ecg Monitoring (03/12/17 07:57) Iv Access Insert/Monitor (03/12/17 07:57) Oximetry (03/12/17 07:57) Sodium Chloride 0.9% Flush (Ns Flush) (03/12/17 08:00) Sodium Chlorid 0.9% 500 Ml Inj (Ns 500 M (03/12/17 08:45) Labs Laboratory Tests Test 03/12/17 08:03 White Blood Count 10.3 TH/MM3 Red Blood Count 5.68 MIL/MM3 Hemoglobin 12.2 GM/DL Hematocrit 39.6 % Mean Corpuscular Volume 69.7 FL Mean Corpuscular Hemoglobin 21.5 PG Mean Corpuscular Hemoglobin Concent 30.9 % Red Cell Distribution Width 15.3 % Platelet Count 172 TH/MM3 Mean Platelet Volume 9.0 FL Neutrophils (%) (Auto) 68.6 % Lymphocytes (%) (Auto) 23.6 % Monocytes (%) (Auto) 5.1 % Eosinophils (%) (Auto) 1.9 % Basophils (%) (Auto) 0.8 % Neutrophils # (Auto) 7.1 TH/MM3 Lymphocytes # (Auto) 2.4 TH/MM3 Monocytes # (Auto) 0.5 TH/MM3 Eosinophils # (Auto) 0.2 TH/MM3 Basophils # (Auto) 0.1 TH/MM3 CBC Comment AUTO DIFF Differential Comment AUTO DIFF CONFIRMED Ovalocytes 1+ Keratocytes OCC Prothrombin Time 12.5 SEC Prothromb Time International Ratio 1.2 RATIO Activated Partial Thromboplast Time 23.8 SEC Blood Urea Nitrogen 52 MG/DL Creatinine 1.50 MG/DL Random Glucose 61 MG/DL Total Protein 6.7 GM/DL Albumin 3.4 GM/DL Calcium Level 8.2 MG/DL Alkaline Phosphatase 52 U/L Aspartate Amino Transf (AST/SGOT) 17 U/L Alanine Aminotransferase (ALT/SGPT) 22 U/L Total Bilirubin 0.4 MG/DL Sodium Level 139 MEQ/L Potassium Level 3.9 MEQ/L Chloride Level 102 MEQ/L Carbon Dioxide Level 30.2 MEQ/L Anion Gap 7 MEQ/L Estimat Glomerular Filtration Rate 45 ML/MIN Total Creatine Kinase 48 U/L Troponin I 0.03 NG/ML [facility] Medical Decision Making Medical Screen Exam Complete: Yes Emergency Medical Condition: Yes Medical Record Reviewed: Yes Interpretation(s) ECG shows atrial flutter at a rate of 67, left anterior fascicular block Differential Diagnosis TIA versus CVA versus electrolyte abnormality versus dehydration versus infection Narrative Course Patient is a 81-year-old male who comes in after an episode of slurred speech and left arm numbness. Currently his symptoms have resolved. Neurologic exam shows no acute abnormalities. IV established, labs sent. Labs show a BUN of 52 and a creatinine of 1.5. Patient given a small bolus of fluids. CT head performed shows old infarcts, no evidence of hemorrhage. INR is 1.2. Patient will be admitted for further stroke workup. Diagnosis Primary Impression: TIA (transient ischemic attack) Qualified Codes: G45.9 - Transient cerebral ischemic attack, unspecified Admitting Information Admitting Physician Requests: it Magdalena Donato MD Mar 12, 2017 09:20
[2017-03-12] MEDS ORDERED: ONDANSETRON HCL 4 MG/2 ML VIAL IVP PRN (09:45)
[2017-03-12] MEDS ORDERED: SENNOSIDES 8.6 MG TAB PO PRN (09:45)
[2017-03-12] MEDS ORDERED: NALOXONE HCL 0.4 MG/ML AMP IV PUSH PRN (09:45)
[2017-03-12] MEDS ORDERED: SODIUM CHLORIDE 0.9% FLUSH 10 ML FLUSH IV FLUSH PRN (09:45)
[2017-03-12] MEDS ORDERED: LACTULOSE SYRUP 20 GM/30 ML CUP PO PRN (09:45)
[2017-03-12] MEDS ORDERED: MAGNESIUM HYDROXIDE SUSP 30 ML CUP PO PRN (09:45)
[2017-03-12] MEDS ORDERED: BISACODYL 10 MG SUPP RECTAL PRN (09:45)
[2017-03-12] MEDS ORDERED: ACETAMINOPHEN 325 MG TAB PO PRN (09:45)
[2017-03-12 09:51] VITALS: BP 125/53; PULSE 76; RESP 18; O2SAT 96
[2017-03-12] MEDS ORDERED: HEPARIN SODIUM - SQ 10,000 UNITS/ML VIAL SQ SCH (10:00)
[2017-03-12] MEDS ORDERED: GADOBENATE DIM PF 529 MG/ML 20ML VIAL (for RAD MRI) IV ONE (10:45)
--- NOTE | 2017-03-12 10:52 | RADRPT ---
EXAM DATE/TIME: 03/12/2017 10:24 [facility] COMPARISON: No previous studies available for comparison. INDICATIONS : Slurred speech. Resolved. MEDICAL HISTORY : Hypertension. Diabetes mellitus type 2. Chronic obstructive pulmonary disease. CVA. SURGICAL HISTORY : Abdominal aortic aneurysm repair. Aortic valve replacement. ENCOUNTER: Initial ACUITY: 1 day PAIN SCORE: 0/10 LOCATION: cranial Please note a normal MRA of the brain does not entirely exclude the possibility of a small aneurysm, nor the possibility of distal intracranial vessel disease. TECHNIQUE: 3D time of flight MRA was performed. Source images, multiplanar STS MIP, and 3D volume MIP reconstru ctions were reviewed. FINDINGS: Moderate intracranial atherosclerotic vascular disease, negative for major branch vessel occlusion. CONCLUSION: Negative for major branch vessel occlusion. Kenneth Mcleod MD FACR on March 12, 2017 at 10:51 Board Certified Radiologist. This report was verified electronically.
--- NOTE | 2017-03-12 10:58 | RADRPT ---
EXAM DATE/TIME: 03/12/2017 10:24 [facility] COMPARISON: MRI BRAIN W & W/O CONTRAST, May 11, 2016, 3:27. INDICATIONS : Slurred speech. Resolved. CONTRAST: 12 cc Multihance (gadobenate) IV MEDICAL HISTORY : Chronic obstructive pulmonary disease. Diabetes mellitus type 2. Hypertension. High cholesterol SURGICAL HISTORY : Abdominal aortic aneurysm repair. Heart valve, TURP. ENCOUNTER: Initial ACUITY: 1 day PAIN SCORE: 0/10 LOCATION: cranial TECHNIQUE: Multiplanar, multisequence MRI of the brain was performed both prior to and following the administrat ion of paramagnetic contrast. FINDINGS: Marked periventricular white matter changes are evident lacunar infarcts basalganglia bilaterally lar shirley on the right There is no restricted diffusion. There is no parenchymal hemorrhage. No extra-axial fluid collections appreciated. Ventricular size is appropriate. There is no abnormal contrast enhancement appreciated. Posterior fossa is unremarkable. CONCLUSION: Old ischemic changes with marked periventricular white matter changes, negative for a cute process. Kenneth Mcleod MD FACR on March 12, 2017 at 10:56 Board Certified Radiologist. This report was verified electronically.
--- NOTE | 2017-03-12 11:34 | RADRPT ---
EXAM DATE/TIME: 03/12/2017 10:51 [facility] COMPARISON: US CAROTID ARTERIES, May 11, 2016, 16:26. INDICATIONS : Transient ischemic attack. MEDICAL HISTORY : Hypercholesterolemia. Hypertension. Chronic obstructive pulmonary disease. Cerebrovascular accident. Myocardial infarction. Abdominal aortic aneurysm. Atrial fibrillation. Asthma. Diabetes. Anxiet y. SURGICAL HISTORY : Aortic valve replacement. Cardiac catheterization. Thoracotomy. Thorasic aneurysm. TURP. ENCOUNTER: Initial ACUITY: 1 day PAIN SCORE: 0/10 LOCATION: Bilateral neck PEAK SYSTOLIC VELOCITIES (cm/sec): ICA/CCA RATIO: Right: 0.7 Left: 1.5 ICA: Right: 55 Left: 100 CCA: Right: 75 Left: 65 ECA: Right: 97 Left: 41 VERTEBRAL: Right: 38 antegrade Left: 65 antegrade Elevated flow velocities and ICA/CCA ratios have been found to correlate with increased degrees of vessel stenosis, calculated as percentage of diameter relative to a normal segment of distal ICA/CCA FINDINGS: RIGHT CAROTID: No significant stenosis is visualized. The waveforms are within normal limits. LEFT CAROTID: Atherosclerotic calcification without hemodynamically significant stenosis. VERTEBRAL ARTERIES: Antegrade flow is seen in both vertebral arteries. MISCELLANEOUS: None. CONCLUSION: Calcific vascular disease of the left without significant stenosis. Some improvement from comparison study.. Kenneth Mcleod MD FACR on March 12, 2017 at 11:29 Board Certified Radiologist. This report was verified electronically.
[2017-03-12 12:00] VITALS: BP 119/56; PULSE 73; RESP 20; TEMP 96.7; O2SAT 95
--- NOTE | 2017-03-12 12:11 | PD.CONS ---
History of Present Illness Service Neurology Consult Requested By medical Reason for Consult tia Primary Care Physician Josue Garibay MD History of Present Illness 81 y/o m admitted for tia. had transient left arm numbness, lasting minutes. back to baseline at present. no c/o. no headache, no vision loss, no focal weakness. ct brain naicp. on coumadin, admit inr 1.2 glucose 61 04/2016 mri brain with ?rt mca infarct with ich transformation. 03/12/2017 mri. non contrast enhancement and suggests old rt mca stroke Review of Systems Except as stated in HPI: all other systems reviewed are Neg Past Family Social History Past Medical History Unspecified cardiovascular aneurysm COPD Past Surgical History Valve replacement Allergies: Coded Allergies: No Known Allergies (Unverified Allergy, Unknown, 02/27/17) Family History Sr. with lung cancer Social History quit tob. lives alone, son is closeby Review of Systems All other ROS: ROS reviewed as documented in chart Past Family Social History Allergies: Coded Allergies: No Known Allergies (Unverified Allergy, Unknown, 03/12/17) Active Ordered Medications Current Medications Medications (Trade) Dose Ordered Sig/Tawnya Route Start Time Stop Time Status Last Admin (NS Flush) 2 ml UNSCH PRN IV FLUSH 03/12/17 09:45 (NS Flush) 2 ml BID IV FLUSH 03/12/17 21:00 (Tylenol) 650 mg Q4H PRN PO 03/12/17 09:45 (Zofran Inj) 4 mg Q6H PRN IVP 03/12/17 09:45 (Heparin Inj) 5,000 units Q12H SQ 03/12/17 10:00 03/12/17 11:39 (Narcan Inj) 0.4 mg UNSCH PRN IV PUSH 03/12/17 09:45 (Milk Of Magnesia Liq) 30 ml Q12H PRN PO 03/12/17 09:45 (Senokot) 17.2 mg Q12H PRN PO 03/12/17 09:45 (Dulcolax Supp) 10 mg DAILY PRN RECTAL 03/12/17 09:45 (Lactulose Liq) 30 ml DAILY PRN PO 03/12/17 09:45 Exam I&O / VS Vital Signs Date Time Temp Pulse Resp B/P (MAP) Pulse Ox O2 Delivery O2 Flow Rate FiO2 03/12/17 09:51 76 18 125/53 (77) 96 Room Air 03/12/17 08:51 68 18 100/47 (64) 95 Room Air 03/12/17 08:00 72 18 03/12/17 07:55 97.6 69 18 124/52 (76) 97 03/12/17 07:55 18 Room Air General: Alert and Oriented, No acute distress Eye: EOMI Respiratory: Non-labored respirations Neurologic: Alert, Oriented, Normal sensory, Normal motor, No focal defects, CN II-XII intact, Normal DTR's Psychiatric: Cooperative, Appropriate mood & affect Review/Management Diagnosis/Plan: (1) TIA (transient ischemic attack) ICD Codes: G45.9 - Transient cerebral ischemic attack, unspecified Status: Acute Plan: probably cardioembolic focal sz from previous stroke also possible inr subtherapeutic mra brain- nml carotid u/s- left ica stenosis, none on rt (the relevant side) neuro non-focal. may be developing mci recs inr 2-2.5- per medical for exact range based on avr replacement can bride with lovenox until inr therapeutic. d/c planning once therapeutic will give one time dose of aspirin and coumadin- further coumadin dosing per medical could consider switching to novel OAC eeg f/u lipid/hba1c,b12 p.t no driving outpatient f/u with us in 2-3 weeks (2) HTN (hypertension) ICD Codes: I10 - Essential (primary) hypertension Status: Chronic (3) Chronic ischemic right MCA stroke ICD Codes: I69.30 - Unspecified sequelae of cerebral infarction Status: Chronic (4) DM (diabetes mellitus) ICD Codes: E11.9 - Type 2 diabetes mellitus without complications Status: Chronic Problem Qualifiers (1) TIA (transient ischemic attack): Qualified Codes: G45.9 - Transient cerebral ischemic attack, unspecified (2) DM (diabetes mellitus): Luther Vences MD Mar 12, 2017 12:11
[2017-03-12] MEDS ORDERED: WARFARIN SOD 5 MG TAB PO ONE (14:00)
[2017-03-12] MEDS ORDERED: DEXTROSE 50% IN WATER 50 ML VIAL(D50) IV PUSH PRN (14:00)
[2017-03-12] MEDS ORDERED: ASPIRIN 325 MG TAB PO ONE (14:00)
[2017-03-12] MEDS ORDERED: GLUCAGON 1 MG/ML VIAL OTHER PRN (14:00)
--- NOTE | 2017-03-12 14:01 | HHI.HP ---
HPI Service [facility] Primary Care Physician Josue Garibay MD Admission Diagnosis TIA Diagnoses: Chief Complaint: Slurred speech, left hand numbness, weakness. Travel History International Travel<30 Days: No Contact w/Intl Traveler <30 Da: No Traveled to Known Affected Are: No History of Present Illness Mr. Oneill is a pleasant 81-year-old male with a history of atrial fibrillation, hypertension, hyperlipidemia, type 2 diabetes mellitus, aortic aneurysm status post aneurysm repair and aortic valve replacement by Dr. Irvin of [facility] in March 2016 who presented to the emergency department on 03/12/2017 due to slurred speech and left arm numbness and weakness. His symptoms started around 7 AM today and lasted about an hour. At the time of this interview his symptoms have improved but he still complains of some numbness and weakness on his left lower extremity. Patient denies any chest pain, shortness of breath, fever or chills. Denies any cough, abdominal pain, dysuria or hematuria. He denies any changes in bowel or bladder habits. Review of Systems Except as stated in HPI: all other systems reviewed are Neg Past Family Social History Past Medical History Atrial fibrillation, hypertension, hyperlipidemia, diabetes mellitus type 2, COPD, aortic stenosis, aortic aneurysm status post aortic valve replacement and aneurysm repair of [facility] by Dr. Irvin in March this year. Past Surgical History Aortic valve replacement and ascending aortic aneurysm repair TURP Otosclerosis bilaterally ear surgery Allergies: Coded Allergies: No Known Allergies (Unverified Allergy, Unknown, 03/12/17) Family History 2 sisters with cancers unspecified Mother had diabetes at the age of 81 Father asked away at the age of 84 had stroke Social History He currently does not use tobacco, alcohol or illicit drugs. Physical Exam Vital Signs Vital Signs Date Time Temp Pulse Resp B/P (MAP) Pulse Ox O2 Delivery O2 Flow Rate FiO2 03/12/17 09:51 76 18 125/53 (77) 96 Room Air 03/12/17 08:51 68 18 100/47 (64) 95 Room Air 03/12/17 08:00 72 18 03/12/17 07:55 97.6 69 18 124/52 (76) 97 03/12/17 07:55 18 Room Air Physical Exam GENERAL: This is a well-nourished, well-developed patient, in no apparent distress. SKIN: No rashes, ecchymoses or lesions. Warm and dry. HEAD: Atraumatic. Normocephalic. No temporal or scalp tenderness. EYES: Pupils equal round and reactive. No injection or drainage. ENT: Nose without bleeding, purulent drainage or septal hematoma. Airway patent. NECK: Trachea midline. No lymphadenopathy. Supple, nontender, no meningeal signs. CARDIOVASCULAR: Regular rate and rhythm without murmurs, gallops, or rubs. No JVD. RESPIRATORY: Clear to auscultation. Breath sounds equal bilaterally. No wheezes , rales, or rhonchi. GASTROINTESTINAL: Abdomen soft, non-tender, nondistended. No guarding. MUSCULOSKELETAL: Extremities without clubbing, cyanosis, or edema. NEUROLOGICAL: Awake and alert. Cranial nerves II through XII intact. No focal neurological deficits. Normal speech. Laboratory Laboratory Tests Test 03/12/17 08:03 03/12/17 08:05 White Blood Count 10.3 Red Blood Count 5.68 Hemoglobin 12.2 Hematocrit 39.6 Mean Corpuscular Volume 69.7 Mean Corpuscular Hemoglobin 21.5 Mean Corpuscular Hemoglobin Concent 30.9 Red Cell Distribution Width 15.3 Platelet Count 172 Mean Platelet Volume 9.0 Neutrophils (%) (Auto) 68.6 Lymphocytes (%) (Auto) 23.6 Monocytes (%) (Auto) 5.1 Eosinophils (%) (Auto) 1.9 Basophils (%) (Auto) 0.8 Neutrophils # (Auto) 7.1 Lymphocytes # (Auto) 2.4 Monocytes # (Auto) 0.5 Eosinophils # (Auto) 0.2 Basophils # (Auto) 0.1 CBC Comment AUTO DIFF Differential Comment AUTO DIFF CONFIRMED Ovalocytes 1+ Keratocytes OCC Prothrombin Time 12.5 Prothromb Time International Ratio 1.2 Activated Partial Thromboplast Time 23.8 Blood Urea Nitrogen 52 Creatinine 1.50 Random Glucose 61 Total Protein 6.7 Albumin 3.4 Calcium Level 8.2 Alkaline Phosphatase 52 Aspartate Amino Transf (AST/SGOT) 17 Alanine Aminotransferase (ALT/SGPT) 22 Total Bilirubin 0.4 Sodium Level 139 Potassium Level 3.9 Chloride Level 102 Carbon Dioxide Level 30.2 Anion Gap 7 Estimat Glomerular Filtration Rate 45 Total Creatine Kinase 48 Troponin I 0.03 Result Diagram: 03/12/1780203/12/17802 Imaging Last Impressions Head CT 03/12/17 0757 Signed Impressions: Service Date/Time: Sunday, March 12, 2017 08:12 - CONCLUSION: Negative for acute process Ischemic changes basalganglia bilaterally. Kenneth Mcleod MD FACR Chest X-Ray 03/12/17 0757 Signed Impressions: Service Date/Time: Sunday, March 12, 2017 08:24 - CONCLUSION: No acute disease. Kenneth Mcleod MD FACR Head Magnetic Resonance Angiography 03/12/17 0000 Signed Impressions: Service Date/Time: Sunday, March 12, 2017 10:24 - CONCLUSION: Negative for major branch vessel occlusion. Kenneth Mcleod MD FACR Carotid Artery Ultrasound 03/12/17 0000 Signed Impressions: Service Date/Time: Sunday, March 12, 2017 10:51 - CONCLUSION: Calcific vascular disease of the left without significant stenosis. Some improvement from comparison study.. Kenneth Mcleod MD FACR Brain MRI 03/12/17 0000 Signed Impressions: Service Date/Time: Sunday, March 12, 2017 10:24 - CONCLUSION: Old ischemic changes with marked periventricular white matter changes, negative for acute process. Kenneth Mcleod MD FACR Caprini VTE Risk Assessment Caprini VTE Risk Assessment: Mod/High Risk (score >= 2) Caprini Risk Assessment Model Point Value = 1 Point Value = 2 Point Value = 3 Point Value = 5 Age 41-60 Minor surgery BMI > 25 kg/m2 Swollen legs Varicose veins or History of unexplained or recurrent spontaneous Oral contraceptives or hormone replacement Sepsis (< 1 month) Serious lung disease, including pneumonia (< 1 month) Abnormal pulmonary function Acute myocardial infarction Congestive heart failure (< 1 month) History of inflammatory bowel disease Medical patient at bed rest Age 61-74 Arthroscopic surgery Major open surgery (> 45 min) Laparoscopic surgery (> 45 min) Malignancy Confined to bed (> 72 hours) Immobilizing plaster cast Central venous access Age >= 75 History of VTE Family history of VTE Factor V Leiden Prothrombin [id number] Lupus anticoagulant Anticardiolipin antibodies Elevated serum homocysteine Heparin-induced thrombocytopenia Other congenital or acquired thrombophilia Stroke (< 1 month) Elective arthroplasty Hip, pelvis, or leg fracture Acute spinal cord injury (< 1 month) Prophylaxis Regimen Total Risk Factor Score Risk Level Prophylaxis Regimen 0-1 Low Early ambulation 2 Moderate Order ONE of the following: *Sequential Compression Device (SCD) *Heparin 5000 units SQ BID 3-4 Higher Order ONE of the following medications: *Heparin 5000 units SQ TID *Enoxaparin/Lovenox 40 mg SQ daily (WT < 150 kg, CrCl > 30 mL/min) *Enoxaparin/Lovenox 30 mg SQ daily (WT < 150 kg, CrCl > 10-29 mL/min) *Enoxaparin/Lovenox 30 mg SQ BID (WT < 150 kg, CrCl > 30 mL/min) AND/OR *Sequential Compression Device (SCD) 5 or more Highest Order ONE of the following medications: *Heparin 5000 units SQ TID (Preferred with Epidurals) *Enoxaparin/Lovenox 40 mg SQ daily (WT < 150 kg, CrCl > 30 mL/min) *Enoxaparin/Lovenox 30 mg SQ daily (WT < 150 kg, CrCl > 10-29 mL/min) *Enoxaparin/Lovenox 30 mg SQ BID (WT < 150 kg, CrCl > 30 mL/min) AND *Sequential Compression Device (SCD) Assessment and Plan Problem List: (1) TIA (transient ischemic attack) ICD Code: G45.9 - Transient cerebral ischemic attack, unspecified Status: Acute (2) S/P AVR (aortic valve replacement) and aortoplasty ICD Code: Z95.2 - Presence of prosthetic heart valve (3) Atrial fibrillation ICD Code: I48.91 - Unspecified atrial fibrillation (4) DM (diabetes mellitus) ICD Code: E11.9 - Type 2 diabetes mellitus without complications Status: Chronic Assessment and Plan Mr. Oneill is a pleasant 81 year old male who presents to the ED due to slurred speech, left arm numbness and weakness - Transient ischemic attack - Neurology evaluated patient. - Will continue Warfarin. - History of Aortic aneurysm - History of Aortic Valve Replacement - s/p Aortoplasty, AVR. Pt does not know what type of AVR. There is no documentation in our EMR regarding type of valve. - I have attempted multiple times to get in touch with any family members. Unfortunately, I have been unable to get in touch with anyone. - Patient believes he has mechanical valve. I do not hear any clicks. If it is truly a mechanical valve, his INR will likely need to be higher probably 2.5 - 3.5. - Will obtain records from [facility] regarding AVR. - I spent more than an hour discussing with patient's [id number] as well as discussing with Dr. Roy (Cardiology) who is covering Dr. Garibay. - Essentially, patient actually have a bioprosthetic valve. Per my discussion with Dr. Roy, it would be reasonable to switch Warfarin to Apixaban. - Patient is 81, his weight is 62kg and Creatinine 1.5. He almost meets 3 out of 3 criteria for Apixaban 2.5mg BID dosing. - Will give him first dose now and then patient can go home to continue Apixaban. - I called [facility] (on [address] in [place]) to confirm that they do have Apixaban and they are open until 12AM. - This plan was conveyed to the RN as well. - Diabetes mellitus - Blood glucose was 61 on admission. sliding scale insulin. No oral hypoglycemics for now. - Upon discharge, we will continue Metformin and reduce Glimepiride from 1mg BID to 1mg Qday. Further titration can be done by PCP. Full code. Switching from Warfarin to Apixaban. In summary, patient came in with TIA symptoms. Neurology evaluated patient. 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 Warfarin is discontinued. We are also discontinuing all oral hypoglycemic agents except Metformin and reduced Glimepiride (from 1mg BID to 1mg Qday). Patient will need outpatient follow up with PCP to adjust diabetic medications. Discharge patient to home Condition on discharge: Improved Diabetic Diet as tolerated Ad Amee activity Rx written: Apixaban 2.5mg BID Glimepiride 1mg Qday Follow-up with primary care physician within one week. Problem Qualifiers (1) TIA (transient ischemic attack): Qualified Codes: G45.9 - Transient cerebral ischemic attack, unspecified (2) DM (diabetes mellitus): Dimple Stokes DO Mar 12, 2017 14:01
[2017-03-12 14:37] VITALS: O2SAT 96
[2017-03-12 15:42] LABS: CHOLESTEROL 121 MG/DL (120-200); TRIGLYCERIDES 59 MG/DL (42-150)
[2017-03-12 16:00] VITALS: BP 122/77; PULSE 106; RESP 20; TEMP 98.5; O2SAT 94
[2017-03-12] MEDS ORDERED: WARFARIN SOD 5 MG TAB PO SCH (16:00)
[2017-03-12 16:07] LABS: CHOLESTEROL/ HDL RATIO 2.48 RATIO; HDL CHOLESTEROL 48.7 MG/DL (40.0-60.0); LDL CHOLESTEROL 61 MG/DL (0-99)
[2017-03-12] MEDS ORDERED: INSULIN ASPART SUPPLEMENTAL SCALE SQ SCH (17:00)
[2017-03-12] MEDS ORDERED: APIX2.5T PO (18:12)
[2017-03-12] MEDS ORDERED: APIXABAN 5 MG TABLET PO ONE (18:15)
[2017-03-12] MEDS ORDERED: APIXABAN 2.5 MG TABLET PO ONE (18:15)
[2017-03-12] MEDS ORDERED: GLIM1TAB PO (18:20)
[2017-03-12 18:22] LABS: INTERNATIONAL NORMALIZED RATIO 1.4 RATIO; PROTHROMBIN TIME - PATIENT 13.8 SEC (9.8-11.6)
--- NOTE | 2017-03-12 18:24 | EKG ---
Date Performed: 03/12/2017 Time Performed: 08:02:57 PTAGE: 81 years EKG: ATRIAL FLUTTER/TACHYCARDIA RIGHT BUNDLE BRANCH BLOCK LEFT ANTERIOR FASCICULAR BLOCK VOLTAGE CRITERIA FOR LVH POSSIBLE SEPTAL MYOCARDIAL INFARCTION ABNORMAL ECG PREVIOUS TRACING : 02/27/2017 10.29 Compared to the previous tracing rate slower DOCTOR: Joao Ricci Interpretating Date/Time 03/12/2017 18:23:56
[2017-03-12] MEDS ORDERED: DONEPEZIL HCL 5 MG TAB PO SCH (21:00)
[2017-03-12] MEDS ORDERED: ATORVASTATIN 40 MG TAB PO SCH (21:00)
[2017-03-12] MEDS ORDERED: SODIUM CHLORIDE 0.9% FLUSH 10 ML FLUSH IV FLUSH SCH (21:00)
[2017-03-12] MEDS ORDERED: METOPROLOL TARTRATE 25 MG TAB PO SCH (21:00)
[2017-03-13] MEDS ORDERED: amLODIPine BESYLATE 5 MG TAB PO SCH (09:00)
[2017-03-13] MEDS ORDERED: LISINOPRIL 20 MG TAB PO SCH (09:00)
[2017-03-13] MEDS ORDERED: FUROSEMIDE 40 MG TAB PO SCH (09:00)
[2017-03-13 12:12] LABS: HEMOGLOBIN A1C 8.3 % (4.3-6.0)
[2017-03-13] MEDS ORDERED: WARFARIN SOD 5 MG TAB PO SCH (16:00)
== END 2017-03-12 19:01 | disposition home or self-care (01) ==
LOC: PHED 07:50 → PHEDA 09:40 → PH3A 11:24
PROVIDERS: ADMIT Hospitalist; ATTEND Hospitalist
DX: G45.9 Transient cerebral ischemic attack, unspecified (principal); I10 Essential (primary) hypertension; I48.91 Unspecified atrial fibrillation; E78.5 Hyperlipidemia, unspecified; E11.9 Type 2 diabetes mellitus without complications; J44.9 Chronic obstructive pulmonary disease, unspecified; I35.0 Nonrheumatic aortic (valve) stenosis; H91.90 Unspecified hearing loss, unspecified ear; Z79.01 Long term (current) use of anticoagulants; Z86.73 Personal history of transient ischemic attack (TIA), and cerebral infarction without residual deficits; Z95.2 Presence of prosthetic heart valve
CPT/HCPCS: 70450; 70544; 70553; 71010; 80053; 80061; 82550; 82607; 83036; 84484; 85025; 85610; 85730; 93005; 93880; 96372; 99285; A9577; G0378; J1644; J1815; J7040

== ENCOUNTER 2017-04-17 15:13 | Inpatient (IN) | payer OTHER, MEDICAID, MEDICARE ==
[2017-04-17] VITALS (10 sets, daily range): BP systolic 130–167; BP diastolic 74–93; PULSE 105–115; RESP 8–22; TEMP 98–98.4; O2SAT 95–97
[~2017-04-17] VITALS: Ht 167.6 cm; Wt 65.7 kg
[~2017-04-17 15:13] MED LIST changes: +APIX2.5T PO; -CANA100T PO; -COUM5TAB PO; -DOXY100C PO; -PRED5PAK2 PO; -SITA1TAB2 PO
[2017-04-17] MEDS ORDERED: methylPREDNISolone SOD SUCC 125 MG/2 ML VIAL IV PUSH ONE (16:00)
--- NOTE | 2017-04-17 16:09 | PD ---
HPI . Dyspnea Chief Complaint: Respiratory Symptoms Time Seen by Provider: 15:44 Travel History International Travel<30 days: No Contact w/Intl Traveler<30days: No Traveled to known affect area: No History of Present Illness HPI Patient presents complaining with cough and shortness of breath. Onset was 4 days ago. Symptoms wax and wane. He was started on amoxicillin 04/12. He reports no improvement in his symptoms with amoxicillin. He has not been running any fever. Medical history is significant for COPD and he is on multiple medications for COPD. PFSH Past Medical History Hx Anticoagulant Therapy: Yes AAA: Yes Arthritis: No Asthma: Yes Atrial Fibrillation: Yes Autoimmune Disease: No Anxiety: Yes Depression: Yes Heart Rhythm Problems: Yes (afib ) Cancer: No Cardiovascular Problems: Yes High Cholesterol: Yes Chest Pain: No COPD: Yes Cerebrovascular Accident: Yes Diabetes: Yes Diminished Hearing: Yes (right ear hearing aid) Endocrine: Yes Genitourinary: No Hypertension: Yes Immune Disorder: No Implanted Vascular Access Dvce: No Musculoskeletal: No Neurologic: Yes Psychiatric: No Reproductive: No Respiratory: Yes (COPD) Migraines: No Sleep Apnea: No Past Surgical History Abdominal Surgery: Yes Cardiac Surgery: Yes ( aortic valve replacement, cardiac cath.) Ear Surgery: Yes (STAPES IMPLANT) Endocrine Surgery: No Eye Surgery: No Genitourinary Surgery: Yes (TURP) Gynecologic Surgery: No Oral Surgery: No Thoracic Surgery: Yes (thoracotomy, thorasic aneurysm repair) Other Surgery: Yes Social History Alcohol Use: No Tobacco Use: No (quit) Substance Use: No Allergies-Medications (Allergen,Severity, Reaction): Coded Allergies: No Known Allergies (Unverified Allergy, Unknown, 04/17/17) Reported Meds & Prescriptions Reported Meds & Active Scripts Active Eliquis (Apixaban) 2.5 Mg Tab 2.5 Mg PO BID Breo Ellipta Inh (Fluticasone/Vilanterol) 100-25 Mcg/Act Inh 1 Puff INH DAILY Use daily at the same time. Spiriva Respimat Inh (Tiotropium Inh) 1.25 Mcg/Act Aero 2 Puff INH DAILY 1.25 mcg = 1 inhalation Proair Hfa 8.5 GM Inh (Albuterol Sulfate) 90 Mcg/Act Aer 2 Puff INH Q4-6H PRN 108 mcg/actuation Reported Amoxicillin 500 Mg Cap 500 Mg PO DIRECTED PRN Mirtazapine 15 Mg Tab 15 Mg PO HS Glimepiride 4 Mg Tab 4 Mg PO BIDAC Januvia (Sitagliptin Phosphate) 100 Mg Tab 100 Mg PO DAILY Tamsulosin (Tamsulosin HCl) 0.4 Mg Cap 0.4 Mg PO HS Diltiazem CD 24 HR 120 Mg Caper 120 Mg PO BID Lasix (Furosemide) 20 Mg Tab 20 Mg PO DAILY Donepezil 5 Mg Tab 5 Mg PO HS Metformin (Metformin HCl) 1,000 Mg Tab 1,000 Mg PO BIDPC With meals Atorvastatin (Atorvastatin Calcium) 40 Mg Tab 40 Mg PO HS Metoprolol Tartrate 25 Mg Tab 12.5 Mg PO BID Benazepril (Benazepril HCl) 40 Mg Tab 10 Mg PO DAILY Review of Systems Except as stated in HPI: all other systems reviewed are Neg General / Constitutional: No: Fever, Chills Respiratory: Positive: Cough, Shortness of Breath Genitourinary: Positive: Other (suprapubic fullness), No: Hesitancy Physical Exam Narrative GENERAL: Patient is awake and alert. SKIN: warm/dry. Good turgor. HEAD: Normocephalic. Atraumatic. EYES: Pupils equal and round. No scleral icterus. No injection or drainage. ENT: No nasal bleeding or discharge. Mucous membranes pink and moist. NECK: Trachea midline. Full range of motion without pain.. CARDIOVASCULAR: Tachycardic at 113 RESPIRATORY: No accessory muscle use. Decreased air movement with wheezing. Breath sounds equal bilaterally. GASTROINTESTINAL: Abdomen soft. Nontender. He has an umbilical hernia. Bowel sounds present. Nondistended. MUSCULOSKELETAL: No obvious deformities. NEUROLOGICAL: Awake and alert. No obvious cranial nerve deficits. Motor grossly within normal limits. Normal speech. PSYCHIATRIC: Appropriate mood and affect; insight and judgment normal. Data Data Last Documented VS Vital Signs Date Time Temp Pulse Resp B/P (MAP) Pulse Ox O2 Delivery O2 Flow Rate FiO2 04/17/17 17:35 111 16 95 Room Air 04/17/17 17:31 143/82 (102) 04/17/17 15:22 98.0 Orders Orders Complete Blood Count With Diff (04/17/17 15:52) Basic Metabolic Panel (Bmp) (04/17/17 15:52) B-Type Natriuretic Peptide (04/17/17 15:52) Troponin I (04/17/17 15:52) Blood Culture (04/17/17 15:52) Iv Access Insert/Monitor (04/17/17 15:52) Electrocardiogram (04/17/17 15:52) Ecg Monitoring (04/17/17 15:52) Oximetry (04/17/17 15:52) Oxygen Administration (04/17/17 15:52) Chest, Single Ap (04/17/17 15:52) Sodium Chloride 0.9% Flush (Ns Flush) (04/17/17 16:00) Methylprednisolone So Succ Inj (Solumedr (04/17/17 16:00) Albuterol-Ipratropium Neb (Duoneb Neb) (04/17/17 16:00) Azithromycin Inj (Zithromax Inj) (04/17/17 17:00) Ceftriaxone Inj (Rocephin Inj) (04/17/17 17:00) Admit Order (Ed Use Only) (04/17/17 ) Vital Signs (Adult) Q4H (04/17/17 18:17) Diet Heart Healthy (04/17/17 Dinner) Activity Oob With Assistance (04/17/17 18:17) Notify Dr: Other (04/17/17 18:17) Admit To Inpatient (04/17/17 ) Vital Signs (Adult) EN.Q4H (04/17/17 18:20) Activity Oob With Assistance (04/17/17 18:20) Inpatient Certification (04/17/17 ) Labs Laboratory Tests Test 04/17/17 15:55 White Blood Count 7.9 TH/MM3 Red Blood Count 4.89 MIL/MM3 Hemoglobin 10.8 GM/DL Hematocrit 34.8 % Mean Corpuscular Volume 71.3 FL Mean Corpuscular Hemoglobin 22.1 PG Mean Corpuscular Hemoglobin Concent 31.0 % Red Cell Distribution Width 16.0 % Platelet Count 218 TH/MM3 Mean Platelet Volume 8.7 FL Neutrophils (%) (Auto) 75.3 % Lymphocytes (%) (Auto) 13.4 % Monocytes (%) (Auto) 5.7 % Eosinophils (%) (Auto) 5.2 % Basophils (%) (Auto) 0.4 % Neutrophils # (Auto) 5.9 TH/MM3 Lymphocytes # (Auto) 1.1 TH/MM3 Monocytes # (Auto) 0.5 TH/MM3 Eosinophils # (Auto) 0.4 TH/MM3 Basophils # (Auto) 0.0 TH/MM3 CBC Comment AUTO DIFF Differential Comment AUTO DIFF CONFIRMED Ovalocytes 1+ Blood Urea Nitrogen 26 MG/DL Creatinine 1.30 MG/DL Random Glucose 126 MG/DL Calcium Level 8.7 MG/DL Sodium Level 140 MEQ/L Potassium Level 3.9 MEQ/L Chloride Level 105 MEQ/L Carbon Dioxide Level 27.4 MEQ/L Anion Gap 8 MEQ/L Estimat Glomerular Filtration Rate 53 ML/MIN Troponin I 0.04 NG/ML B-Type Natriuretic Peptide 677 PG/ML MDM Medical Decision Making Medical Screen Exam Complete: Yes Emergency Medical Condition: Yes Interpretation(s) EKG shows atrial fibrillation with a ventricular rate of 113. No acute ischemic changes. Differential Diagnosis Differential diagnosis of dyspnea includes but is not limited to congestive heart failure, pneumonia, wheezing, pneumothorax, pulmonary embolism Narrative Course This is a patient with COPD presents with increasing dyspnea. Solu-Medrol and stacked nebs. He'll be evaluated for possible CHF or pneumonia. CBC & BMP Diagram 04/17/17 15:55 Calcium Level 8.7 BNP 677 Last Impressions Chest X-Ray 04/17/17 1552 Signed Impressions: Service Date/Time: Monday, April 17, 2017 15:57 - CONCLUSION: New mild patchy. opacity at the right lung base of concern for possible early pneumonia. Caleb Edward MD The chest x-ray has been independently viewed by me. He will be treated empirically with Rocephin and Zithromax. Physician Communication Physician Communication Dr. Ovalles Diagnosis Primary Impression: Dyspnea Qualified Codes: R06.00 - Dyspnea, unspecified Additional Impressions: COPD (chronic obstructive pulmonary disease) Qualified Codes: J44.0 - Chronic obstructive pulmonary disease with acute lower respiratory infection Pneumonia Qualified Codes: J18.1 - Lobar pneumonia, unspecified organism Admitting Information Admitting Physician Requests: Admit Condition: Stable Shweta Day MD Apr 17, 2017 16:09
[2017-04-17] MEDS: SODIUM CHLORIDE 0.9% FLUSH 10 ML FLUSH IVF PRN ×3 (16:18→17:59)
[2017-04-17] MEDS: RESP: ALBUTEROL 2.5 MG/IPRATROPIUM 0.5 MG NEB (SCH) INH ×2 (16:23→16:24)
--- NOTE | 2017-04-17 16:23 | RADRPT ---
EXAM DATE/TIME: 04/17/2017 15:57 [facility] COMPARISON: CHEST SINGLE AP, March 12, 2017, 8:24. INDICATIONS : Shortness of breath. MEDICAL HISTORY : Hypertension. Chronic obstructive pulmonary disease. Myocardial infarction. Abdominal aortic aneu rysm. Atrial fibrillation. Asthma. Diabetes. SURGICAL HISTORY : Aortic valve replacement. Cardiac catheterization. Thoracic aneurysm. Thoracotomy. ENCOUNTER: Initial ACUITY: 1 day PAIN SCORE: 0/10 LOCATION: Bilateral chest FINDINGS: A single AP portable erect view of the chest was obtained and again demonstrate the patient is status post median sternotomy. An artificial heart valve is noted in place. There is new hazy opacity in th e right lung base. Left lung appears clear. The heart size is at the upper limits of normal. Atherosc lerotic changes are present in the aorta. There are multiple overlying electrocardiogram leads. CONCLUSION: New mild patchy. opacity at the right lung base of concern for possible early pneumonia. Caleb Edward MD on April 17, 2017 at 16:15 Board Certified Radiologist. This report was verified electronically.
[2017-04-17 16:36] LABS: AUTOMATED NEUTROPHIL # 5.9 TH/MM3 (1.8-7.7); BASOPHIL % 0.4 % (0.0-2.0); CALCIUM 8.7 MG/DL (8.5-10.1); EOSINOPHIL # 0.4 TH/MM3 (0-0.4); EOSINOPHIL % 5.2 % (0.0-4.0); HEMATOCRIT 34.8 % (39.0-51.0); HEMOGLOBIN 10.8 GM/DL (13.0-17.0); LYMPH % 13.4 % (9.0-44.0); LYMPHOCYTE # 1.1 TH/MM3 (1.0-4.8); MEAN CELL VOLUME 71.3 FL (80.0-100.0); MEAN CORPUSCULAR HEMOGLOBIN 22.1 PG (27.0-34.0); MEAN PLATELET VOLUME 8.7 FL (7.0-11.0); MONO % 5.7 % (0.0-8.0); MONOCYTE # 0.5 TH/MM3 (0-0.9); NEUT % 75.3 % (16.0-70.0); PLATELET COUNT 218 TH/MM3 (150-450); RED BLOOD COUNT 4.89 MIL/MM3 (4.50-5.90); WHITE BLOOD COUNT 7.9 TH/MM3 (4.0-11.0)
[2017-04-17 16:37] LABS: BICARBONATE 27.4 MEQ/L (21.0-32.0)
[2017-04-17] MEDS ORDERED: DILT120C50 PO (16:38)
[2017-04-17] MEDS ORDERED: TAMS0.4C4 PO (16:38)
[2017-04-17] MEDS ORDERED: FURO1TAB62 PO (16:38)
[2017-04-17] MEDS ORDERED: SITA1TAB2 PO (16:38)
[2017-04-17] MEDS ORDERED: GLIM4TAB PO (16:38)
[2017-04-17] MEDS ORDERED: MIRTA15 PO (16:39)
[2017-04-17 16:40] LABS: CREATININE 1.3 MG/DL (0.60-1.30)
[2017-04-17] MEDS ORDERED: AMOX500C PO (16:41)
[2017-04-17 16:45] LABS: TROPONIN I 0.04 NG/ML (0.02-0.05)
[2017-04-17] MEDS ORDERED: cefTRIAXone INJ 1,000 MG in SODIUM CHLORIDE 0.9% INJ 100 ML IV ONE (17:00)
[2017-04-17] MEDS ORDERED: AZITHROMYCIN INJ 500 MG in SODIUM CHLOR 0.9% 250 ML INJ 250 ML IV ONE (17:00)
[2017-04-17 17:08] LABS: OVALOCYTES 1+ (NORMAL)
--- NOTE | 2017-04-17 19:32 | HHI.HP ---
[facility] Josue Garibay MD Admission Diagnosis pneumonia Diagnoses: Chief Complaint: shortness of breath Travel History International Travel<30 Days: No Contact w/Intl Traveler <30 Da: No Traveled to Known Affected Are: No History of Present Illness A 81-year-old white male being admitted for shortness of breath. Patient was in his usual state of health until about 4 days ago when he developed a cough nasal congestion and subsequent shortness of breath. He says he kept taking his home medications especially his inhalers but his shortness of breath persisted and also progressed. He says he heard himself wheezing. He denies any nausea, vomiting, fevers, chills. He was admitted about 2 months ago with similar symptoms but says this time this presentation is more severe. Says his social service technician Dr. Ruiz and his library assistant is Dr. Garibay. ROS - General Review of Systems Except as stated in HPI: all other systems reviewed are Neg PFSH Past Family Social History Past Medical History Unspecified cardiovascular aneurysm COPD afib/flutter Past Surgical History Valve replacement Family History Sr. with lung cancer Social History Reports being a 3-4 pack per day cigarette smoker for many years, quit 2 years ago Review of Systems Except as stated in HPI: all other systems reviewed are Neg Past Family Social History Allergies: Coded Allergies: No Known Allergies (Unverified Allergy, Unknown, 04/17/17) Physical Exam Vital Signs Vital Signs Date Time Temp Pulse Resp B/P (MAP) Pulse Ox O2 Delivery O2 Flow Rate FiO2 04/17/17 18:30 111 18 132/87 (102) 95 Room Air 04/17/17 17:35 111 16 95 Room Air 04/17/17 17:31 113 16 143/82 (102) 95 Room Air 04/17/17 16:30 113 18 143/93 (110) 96 Room Air 04/17/17 15:55 22 96 Room Air 04/17/17 15:55 96 Room Air 04/17/17 15:45 112 22 96 Room Air 1/29/18 15:22 98.0 115 16 143/74 (97) 95 Physical Exam VS: Afebrile GENERAL: Elderly white male, well-nourished, SKIN: Warm and dry. EYES: No scleral icterus. No injection or drainage. ENT: No nasal bleeding or discharge. Mucous membranes pink and moist. CARDIOVASCULAR: Regular rate and rhythm. no murmurs RESPIRATORY: diminished BB BS, no cyanosis GASTROINTESTINAL: Abdomen soft, non-tender, nondistended Extremities: No clubbing, No obvious deformities. MUSCULOSKELETAL: No obvious deformities. grossly intact ROM with 5/5 strength in upper and lower extremities proximally NEUROLOGICAL: Awake and alert. No obvious cranial nerve deficits. No facial droop nor slurred speech noted. PSYCHIATRIC: Appropriate mood and affect; insight and judgment normal. Laboratory Laboratory Tests Test 04/17/17 15:55 White Blood Count 7.9 Red Blood Count 4.89 Hemoglobin 10.8 Hematocrit 34.8 Mean Corpuscular Volume 71.3 Mean Corpuscular Hemoglobin 22.1 Mean Corpuscular Hemoglobin Concent 31.0 Red Cell Distribution Width 16.0 Platelet Count 218 Mean Platelet Volume 8.7 Neutrophils (%) (Auto) 75.3 Lymphocytes (%) (Auto) 13.4 Monocytes (%) (Auto) 5.7 Eosinophils (%) (Auto) 5.2 Basophils (%) (Auto) 0.4 Neutrophils # (Auto) 5.9 Lymphocytes # (Auto) 1.1 Monocytes # (Auto) 0.5 Eosinophils # (Auto) 0.4 Basophils # (Auto) 0.0 CBC Comment AUTO DIFF Differential Comment AUTO DIFF CONFIRMED Ovalocytes 1+ Blood Urea Nitrogen 26 Creatinine 1.30 Random Glucose 126 Calcium Level 8.7 Sodium Level 140 Potassium Level 3.9 Chloride Level 105 Carbon Dioxide Level 27.4 Anion Gap 8 Estimat Glomerular Filtration Rate 53 Troponin I 0.04 B-Type Natriuretic Peptide 677 Date/Time Source Procedure Growth Status 04/17/17 16:00 Blood Peripheral Aerobic Blood Culture Pending Received 04/17/17 16:00 Blood Peripheral Anaerobic Blood Culture Pending Received Result Diagram: 04/17/17 1555 04/17/17 1555 Imaging Last Impressions Chest X-Ray 04/17/17 1552 Signed Impressions: Service Date/Time: Monday, April 17, 2017 15:57 - CONCLUSION: New mild patchy. opacity at the right lung base of concern for possible early pneumonia. MD Vic Weldon VTE Risk Assessment Caprini VTE Risk Assessment: Mod/High Risk (score >= 2) Caprini Risk Assessment Model Point Value = 1 Point Value = 2 Point Value = 3 Point Value = 5 Age 41-60 Minor surgery BMI > 25 kg/m2 Swollen legs Varicose veins or History of unexplained or recurrent spontaneous Oral contraceptives or hormone replacement Sepsis (< 1 month) Serious lung disease, including pneumonia (< 1 month) Abnormal pulmonary function Acute myocardial infarction Congestive heart failure (< 1 month) History of inflammatory bowel disease Medical patient at bed rest Age 61-74 Arthroscopic surgery Major open surgery (> 45 min) Laparoscopic surgery (> 45 min) Malignancy Confined to bed (> 72 hours) Immobilizing plaster cast Central venous access Age >= 75 History of VTE Family history of VTE Factor V Leiden Prothrombin [id number] Lupus anticoagulant Anticardiolipin antibodies Elevated serum homocysteine Heparin-induced thrombocytopenia Other congenital or acquired thrombophilia Stroke (< 1 month) Elective arthroplasty Hip, pelvis, or leg fracture Acute spinal cord injury (< 1 month) Prophylaxis Regimen Total Risk Factor Score Risk Level Prophylaxis Regimen 0-1 Low Early ambulation 2 Moderate Order ONE of the following: *Sequential Compression Device (SCD) *Heparin 5000 units SQ BID 3-4 Higher Order ONE of the following medications: *Heparin 5000 units SQ TID *Enoxaparin/Lovenox 40 mg SQ daily (WT < 150 kg, CrCl > 30 mL/min) *Enoxaparin/Lovenox 30 mg SQ daily (WT < 150 kg, CrCl > 10-29 mL/min) *Enoxaparin/Lovenox 30 mg SQ BID (WT < 150 kg, CrCl > 30 mL/min) AND/OR *Sequential Compression Device (SCD) 5 or more Highest Order ONE of the following medications: *Heparin 5000 units SQ TID (Preferred with Epidurals) *Enoxaparin/Lovenox 40 mg SQ daily (WT < 150 kg, CrCl > 30 mL/min) *Enoxaparin/Lovenox 30 mg SQ daily (WT < 150 kg, CrCl > 10-29 mL/min) *Enoxaparin/Lovenox 30 mg SQ BID (WT < 150 kg, CrCl > 30 mL/min) AND *Sequential Compression Device (SCD) Assessment and Plan Assessment and Plan 81-year-old white male being admitted for shortness of breath Shortness of breath - Most likely secondary to COPD exacerbation trigger by PNA - I independently reviewed the chest x-ray and see a RLL PNA - We'll continue high-dose Solu-Medrol for 24 hours along with DuoNebs - rocephin x 1 in ED; risk of HCAP, will cover with vanc and levaquin Heart valve replacement + afib - continue home eliquis Hyperlipidemia - Continue home atorvastatin Hypertension + afib - Continue home cardizem and metoprolol DM - LDSS SCDs, on eliqu Physician Certification 2 Midnight Certification Type: Admission for Inpatient Services Order for Inpatient Services The services are ordered in accordance with Medicare regulations or non- Medicare payer requirements, as applicable. In the case of services not specified as inpatient-only, they are appropriately provided as inpatient services in accordance with the 2-midnight benchmark. Estimated LOS (days): 3 3 days is the estimated time the patient will need to remain in the hospital, assuming treatment plan goals are met and no additional complications. Post-Hospital Plan: Home Deshaun Damon MD Apr 17, 2017 19:32
[2017-04-17] MEDS ORDERED: Vancomycin Consult Pharmacy 1 EA OTHER SCH (19:45)
[2017-04-17] MEDS ORDERED: GLUCAGON 1 MG/ML VIAL OTHER PRN (20:00)
[2017-04-17] MEDS ORDERED: DEXTROSE 50% IN WATER 50 ML VIAL(D50) IV PUSH PRN (20:00)
[2017-04-17] MEDS ORDERED: LEVOFLOXACIN 750 MG PREMIX INJ 150 ML IV SCH (20:00)
[2017-04-17] MEDS: RESP: ALBUTEROL 2.5 MG/IPRATROPIUM 0.5 MG NEB (SCH) NEB ×2 (20:16→23:01)
[2017-04-17] MEDS ORDERED: ATORVASTATIN 40 MG TAB PO SCH (21:00)
[2017-04-17] MEDS ORDERED: VANCOMYCIN INJ 1,250 MG in SODIUM CHLOR 0.9% 250 ML INJ 250 ML IV SCH (21:00)
[2017-04-17] MEDS ORDERED: MIRTAZAPINE 15 MG TAB PO SCH (21:00)
[2017-04-17] MEDS ORDERED: TAMSULOSIN HCL 0.4 MG CAP PO SCH (21:00)
[2017-04-17] MEDS: METOPROLOL TARTRATE 25 MG TAB PO SCH (22:13)
[2017-04-17] MEDS: APIXABAN 2.5 MG TABLET PO SCH (22:13)
[2017-04-17] MEDS: DILTIAZEM-CD 120 MG CAP ER PO SCH (22:14)
[2017-04-17] MEDS: INSULIN NovoLIN REGULAR SUPPLEMENTAL SCALE SQ SCH (22:51)
[2017-04-17] MEDS: methylPREDNISolone SOD SUCC 125 MG/2 ML VIAL IV PUSH SCH (22:51)
[2017-04-18] VITALS: BP 153/89; PULSE 100; RESP 20; TEMP 96.8; O2SAT 95
[2017-04-18] MEDS: RESP: ALBUTEROL 2.5 MG/IPRATROPIUM 0.5 MG NEB (SCH) NEB ×3 (02:52→11:09)
[2017-04-18] MEDS: methylPREDNISolone SOD SUCC 125 MG/2 ML VIAL IV PUSH SCH (05:59)
[2017-04-18] MEDS: SODIUM CHLORIDE 0.9% FLUSH 10 ML FLUSH IVF PRN (05:59)
[2017-04-18 07:30] VITALS: O2SAT 96
[2017-04-18 08:00] VITALS: BP 154/84; PULSE 105; RESP 20; TEMP 96.8; O2SAT 98
[2017-04-18] MEDS: METOPROLOL TARTRATE 25 MG TAB PO SCH (08:56)
[2017-04-18] MEDS: APIXABAN 2.5 MG TABLET PO SCH (08:56)
[2017-04-18] MEDS: DILTIAZEM-CD 120 MG CAP ER PO SCH (08:56)
[2017-04-18] MEDS ORDERED: FUROSEMIDE 20 MG TAB PO SCH (09:00)
[2017-04-18] MEDS ORDERED: FLUTICASONE 100 MCG/VILANTEROL 25 MCG INHALER INH SCH (09:00)
[2017-04-18] MEDS ORDERED: LISINOPRIL 10 MG TAB PO SCH (09:00)
[2017-04-18] MEDS: INSULIN NovoLIN REGULAR SUPPLEMENTAL SCALE SQ SCH ×2 (09:05→12:35)
[2017-04-18 10:02] VITALS: O2SAT 94
[2017-04-18 11:11] VITALS: O2SAT 97
[2017-04-18 12:00] VITALS: BP 142/81; PULSE 106; RESP 22; TEMP 96.9; O2SAT 96
[2017-04-18] MEDS ORDERED: methylPREDNISolone SOD SUCC 125 MG/2 ML VIAL IV PUSH SCH (12:00)
[2017-04-18] MEDS ORDERED: LEVO500T8 PO (13:04)
[2017-04-18] MEDS ORDERED: PRED10PA PO (13:04)
--- NOTE | 2017-04-18 13:24 | HHI.DCPOC ---
Discharge Care Plan Diagnosis: (1) Pneumonia Goals to Promote Your Health * To prevent worsening of your condition and complications * To maintain your health at the optimal level Directions to Meet Your Goals Take your medications as prescribed Follow your dietary instruction Follow activity as directed Keep your appointments as scheduled Take your immunizations and boosters as scheduled If your symptoms worsen call your PCP, if no PCP go to Urgent Care Center or Emergency Room Smoking is Dangerous to Your Health. Avoid second hand smoke Call the 24-hour hour crisis hotline for domestic abuse at Jenny Parker MD Apr 18, 2017 13:24
--- NOTE | 2017-04-18 13:24 | HHI.DS ---
Discharge Summary Admission Date Apr 17, 2017 at 18:18 Discharge Date: Apr 18, 2017 Admitting Diagnosis pneumonia (1) DM (diabetes mellitus) ICD Code: E11.9 - Type 2 diabetes mellitus without complications Status: Chronic (2) Pneumonia ICD Code: J18.9 - Pneumonia, unspecified organism Status: Acute (3) COPD (chronic obstructive pulmonary disease) ICD Code: J44.9 - Chronic obstructive pulmonary disease, unspecified Status: Acute Procedures None Brief History - From Admission A 81-year-old white male being admitted for shortness of breath. Patient was in his usual state of health until about 4 days ago when he developed a cough nasal congestion and subsequent shortness of breath. He says he kept taking his home medications especially his inhalers but his shortness of breath persisted and also progressed. He says he heard himself wheezing. He denies any nausea, vomiting, fevers, chills. He was admitted about 2 months ago with similar symptoms but says this time this presentation is more severe. Says his crown pouncer Dr. Ruiz and his short order fry cook is Dr. Garibay. ROS - General Review of Systems Except as stated in HPI: all other systems reviewed are Neg PFSH Past Family Social History Past Medical History Unspecified cardiovascular aneurysm COPD afib/flutter Past Surgical History Valve replacement Family History Sr. with lung cancer Social History Reports being a 3-4 pack per day cigarette smoker for many years, quit 2 years ago CBC/BMP: 04/17/17 1555 04/17/17 1555 Significant Findings Laboratory Tests Test 04/17/17 15:55 Hemoglobin 10.8 GM/DL (13.0-17.0) Hematocrit 34.8 % (39.0-51.0) Mean Corpuscular Volume 71.3 FL (80.0-100.0) Mean Corpuscular Hemoglobin 22.1 PG (27.0-34.0) Mean Corpuscular Hemoglobin Concent 31.0 % (32.0-36.0) Neutrophils (%) (Auto) 75.3 % (16.0-70.0) Eosinophils (%) (Auto) 5.2 % (0.0-4.0) Ovalocytes 1+ (NORMAL) Blood Urea Nitrogen 26 MG/DL (7-18) Random Glucose 126 MG/DL (74-106) Estimat Glomerular Filtration Rate 53 ML/MIN (>89) B-Type Natriuretic Peptide 677 PG/ML (0-100) Imaging Last Impressions Chest X-Ray 04/17/17 1552 Signed Impressions: Service Date/Time: Monday, April 17, 2017 15:57 - CONCLUSION: New mild patchy. opacity at the right lung base of concern for possible early pneumonia. Caleb Edward MD PE at Discharge GENERAL: This is a well-nourished, well-developed patient, in no apparent distress. CARDIOVASCULAR: Solid murmur, no gallops or rubs RESPIRATORY: Clear to auscultation. Breath sounds equal bilaterally. No wheezes , rales, or rhonchi. GASTROINTESTINAL: Abdomen soft, non-tender, nondistended. Normal active bowel sounds MUSCULOSKELETAL: Extremities without clubbing, cyanosis, or edema. NEURO: Alert & Oriented x4 to person, place, time, situation. Moves all ext x4 Pt update on day of discharge Patient seen and evaluated in follow-up for pneumonia. He feels well. He is reading the paper up in bed and would like to go home Hospital Course Patient was seen and treated for pneumonia. He had cough and fever. He did well with antibiotics. Patient also had mild COPD exacerbation for which she was treated with steroids and bronchodilators. Patient did well and was discharged home Pt Condition on Discharge: Good Discharge Disposition: Discharge Home Discharge Time: <= 30 minutes Discharge Instructions DIET: Follow Instructions for: As Tolerated, No Restrictions Activities you can perform: Regular-No Restrictions Follow up Referrals: PCP Follow-up - 1 Week New Medications: Levofloxacin (Levofloxacin) 500 Mg Tablet 500 MG PO DAILY for Infection, #5 TAB 0 Refills Prednisone (21) 10 mg tab Dose Pack (Prednisone (21) 10 mg tab Dose Pack) 10 Mg Pack 10 MG PO DIRECTED for Inflammation, #1 DSPK 0 Refills Continued Medications: Albuterol 8.5 GM Inh (Proair Hfa 8.5 GM Inh) 90 Mcg/Act Aer 2 PUFF INH Q4-6H PRN for SHORTNESS OF BREATH, #1 INHALER 0 Refills 108 mcg/actuation Apixaban (Eliquis) 2.5 Mg Tab 2.5 MG PO BID for Blood Clot Prevention, #60 TAB 0 Refills Atorvastatin (Atorvastatin) 40 Mg Tab 40 MG PO HS for Cholesterol Management, #30 TAB 0 Refills Benazepril (Benazepril) 40 Mg Tab 10 MG PO DAILY for Blood Pressure Management, #30 TAB 0 Refills Diltiazem CD 24 HR (Diltiazem CD 24 HR) 120 Mg Caper 120 MG PO BID, #30 CAP 0 Refills Donepezil (Donepezil) 5 Mg Tab 5 MG PO HS for Dementia, #30 TAB 0 Refills Fluticasone-Vilanterol Inh (Breo Ellipta Inh) 100-25 Mcg/Act Inh 1 PUFF INH DAILY for lung disease, #1 INHALER 0 Refills Use daily at the same time. Furosemide (Lasix) 20 Mg Tab 20 MG PO DAILY, #30 TAB 0 Refills Glimepiride (Glimepiride) 4 Mg Tab 4 MG PO BIDAC for Blood Sugar Management, #60 TAB 0 Refills Metformin (Metformin) 1,000 Mg Tab 1000 MG PO BIDPC for Blood Sugar Management, #60 TAB 0 Refills With meals Metoprolol Tartrate (Metoprolol Tartrate) 25 Mg Tab 12.5 MG PO BID, #60 TAB 0 Refills Mirtazapine (Mirtazapine) 15 Mg Tab 15 MG PO HS for Depression Control, #30 TAB 0 Refills Sitagliptin (Januvia) 100 Mg Tab 100 MG PO DAILY for Blood Sugar Management, #30 TAB 0 Refills Tamsulosin (Tamsulosin) 0.4 Mg Cap 0.4 MG PO HS for Manage Prostate Problems, #30 CAP 0 Refills Tiotropium Inh (Spiriva Respimat Inh) 1.25 Mcg/Act Aero 2 PUFF INH DAILY for Asthma Management, #1 INHALER 0 Refills 1.25 mcg = 1 inhalation Discontinued Medications: Amoxicillin (Amoxicillin) 500 Mg Cap 500 MG PO DIRECTED PRN for prior to dental work, CAP 0 Refills Jenny Parker MD Apr 18, 2017 13:24
--- NOTE | 2017-04-19 01:01 | EKG ---
Date Performed: 04/17/2017 Time Performed: 16:04:12 PTAGE: 81 years EKG: ATRIAL FLUTTER/TACHYCARDIA WITH RAPID VENTRICULAR RESPONSE RIGHT BUNDLE BRANCH BLOCK LEFT A NTERIOR FASCICULAR BLOCK LEFT VENTRICULAR HYPERTROPHY AND ST-T CHANGE POSSIBLE SEPTAL MYOCARDIAL INFA RCTION ABNORMAL ECG PREVIOUS TRACING : 03/12/2017 08.02 Compared to prior tracing, rate has increased DOCTOR: Jose Rodriguez Interpretating Date/Time 04/19/2017 01:00:21
[2017-04-20] MEDS ORDERED: PHARMACY ORDERED LAB ONE (20:45)
== END 2017-04-18 15:15 | disposition home or self-care (01) | DRG 190 ==
LOC: PHED 15:13 → PHEDA 18:18 → PH3A 23:19
PROVIDERS: ADMIT Hospitalist; ATTEND Hospitalist
DX: J44.0 Chronic obstructive pulmonary disease with (acute) lower respiratory infection (principal); J18.9 Pneumonia, unspecified organism; I48.91 Unspecified atrial fibrillation; E11.9 Type 2 diabetes mellitus without complications; J44.1 Chronic obstructive pulmonary disease with (acute) exacerbation; E78.5 Hyperlipidemia, unspecified; I10 Essential (primary) hypertension; K42.9 Umbilical hernia without obstruction or gangrene; H91.91 Unspecified hearing loss, right ear; Z79.01 Long term (current) use of anticoagulants; Z79.84 Long term (current) use of oral hypoglycemic drugs; Z86.73 Personal history of transient ischemic attack (TIA), and cerebral infarction without residual deficits; Z87.891 Personal history of nicotine dependence; Z95.2 Presence of prosthetic heart valve
CPT/HCPCS: 71045; 80048; 82948; 83880; 84484; 85025; 87040; 87449; 93005; 94640; 94664; 96365; 96367; 96375; J0456; J0696; J1956; J2930; J3370; J7050